=== PATIENT | male | born 1970 | race Caucasian/White ===

== ENCOUNTER 2018-09-22 07:54 | Inpatient (IN) | payer OTHER ==
[2018-09-22 09:15] VITALS: BMI 25.8
--- NOTE | 2018-09-22 09:51 | HP ---
CIWA Score Nausea/Vomitin Muscle Tremors: 3 Anxiety: 4-Mod. Anxious/Guarded Agitation: 0-Normal Activity Paroxysmal Sweats: No Perspiration Orientation: 0-Oriented Tacttile Disturbances: 0-None Auditory Disturbances: 1-Very Mild Visual Disturbances: 0-None Headache: 2-Mild CIWA-Ar Total Score: 13 - Admission Criteria OASAS Guidelines: Admission for Medically Managed Detox: Requires at least one of the followin. CIWA greater than 12 2. Seizures within the past 24 hours 3. Delirium tremens within the past 24 hours 4. Hallucinations within the past 24 hours 5. Acute intervention needed for co occurring medical disorder 6. Acute intervention needed for co occurring psychiatric disorder 7. Severe withdrawal that cannot be handled at a lower level of care (continued vomiting, continued diarrhea, abnormal vital signs) requiring intravenous medication and/or fluids 8. Patient presents the following: CIWA greater than 12 Admission Criteria Met: Admission criteria met Admission ROS [facility] - HPI Chief Complaint: I need to start over, to stop drinking, to get back my life Allergies/Adverse Reactions: Allergies Allergy/AdvReac Type Severity Reaction Status Date / Time No Known Allergies Allergy Verified 09/22/18 09:22 History of Present Illness: 48 yo gentleman here for detox from alcohol - denies seizures but does have black outs. Patient was in a residential treatment program for 10 months in 2017 but resumed drinking when he came out. He states he is in an outpatient rehab where he goes to meetings twice a week but it 'wasn't working' for him to stop drinking. He now needs to drink first thing in the morning to prevent shakiness. Although urine tox + cocaine he states he rarely does cocaine ("once in a blue") and he does not know why his urine is + THC as he does not smoke marijuana. Exam Limitations: Clinical Condition - Ebola screening Have you traveled outside of the country in the last 21 days: No (N) Have you had contact with anyone from an Ebola affected area: No Have you been sick,other than usual withdrawal symptoms: No Do you have a fever: No - Review of Systems Constitutional: Loss of Appetite, Changes in sleep, Weakness EENT: reports: Blurred Vision Respiratory: reports: No Symptoms reported Cardiac: reports: No Symptoms Reported GI: reports: Diarrhea, Nausea, Poor Appetite, Indigestion, Abdominal cramping : reports: Frequency Musculoskeletal: reports: No Symptoms Reported Integumentary: reports: Dryness Neuro: reports: Headache, Tremors Endocrine: reports: No Symptoms Reported Hematology: reports: No Symptoms Reported Psychiatric: reports: Judgement Intact, Mood/Affect Appropiate, Anxious Other Systems: Reviewed and Negative Patient History - Patient Medical History Hx Anemia: No Hx Asthma: No Hx Chronic Obstructive Pulmonary Disease (COPD): No Hx Cancer: No Hx Cardiac Disorders: No Hx Congestive Heart Failure: No Hx Hypertension: No Hx Hypercholesterolemia: No Hx Pacemaker: No HX Cerebrovascular Accident: No Hx Seizures: No Hx Dementia: No Hx Diabetes: No Hx Gastrointestinal Disorders: No Hx Liver Disease: No Hx Genitourinary Disorders: No Hx Sexually Transmitted Disorders: No Hx Renal Disease (ESRD): No Hx Thyroid Disease: No Hx Human Immunodeficiency Virus (HIV): No (negative LAST 04/09) Hx Hepatitis C: No (negative) Hx Depression: No Hx Suicide Attempt: No Hx Bipolar Disorder: No Hx Schizophrenia: No - Patient Surgical History Past Surgical History: No Hx Neurologic Surgery: No Hx Cataract Extraction: No Hx Cardiac Surgery: No Hx Lung Surgery: No Hx Breast Surgery: No Hx Breast Biopsy: No Hx Abdominal Surgery: No Hx Appendectomy: No Hx Cholecystectomy: No Hx Genitourinary Surgery: No Hx Orthopedic Surgery: No Anesthesia Reaction: No - PPD History Previous Implant?: Yes Documented Results: Negative w/proof Implanted On Prior R Admission?: Yes Date: 08/25/16 PPD to be Administered?: Yes - Reproductive History Patient is a Female of Child Bearing Age (11 -55 yrs old): No (male) - Smoking Cessation Smoking history: Current every day smoker Have you smoked in the past 12 months: Yes Aproximately how many cigarettes per day: 10 Cigars Per Day: 0 Hx Chewing Tobacco Use: No Initiated information on smoking cessation: Yes 'Breaking Loose' booklet given: 09/22/18 (give on floor) - Substance & Tx. History Hx Alcohol Use: Yes Hx Substance Use: Yes Substance Use Type: Alcohol, Cocaine, Marijuana Hx Substance Use Treatment: Yes (detox, rehab) - Substances Abused Alcohol Route: Oral Frequency: Daily Amount used: 1.5 liter of vodka Age of first use: 25 Date of Last Use: 09/21/18 Family Disease History - Family Disease History Family Disease History: Diabetes: Father (, ), Brother (four living ), Heart Disease: Mother (, etoh), Other: Father, Mother, Brother, Sister ( two living ), Son (two - healthy - ages 22, 20), Daughter (one - healthy age 24) Admission Physical Exam [facility] - Vital Signs Vital Signs: Vital Signs - 24 hr 09/22/18 09:12 Temperature 97.4 F L Pulse Rate 68 Respiratory 20 Rate Blood Pressure 116/74 - Physical General Appearance: Yes: Nourished, Appropriately Dressed, Moderate Distress, Tremorous, Anxious HEENTM: Yes: EOMI, Hearing grossly Normal, Normocephalic, Normal Voice, Pharynx Normal Respiratory: Yes: Normal Breath Sounds, No Respiratory Distress Neck: Yes: No masses,lesions,Nodules, Supple Breast: Yes: Breast Exam Deferred Cardiology: Yes: Regular Rhythm, Regular Rate Abdominal: Yes: Flat Genitourinary: Yes: Frequency Back: Yes: Normal Inspection Musculoskeletal: Yes: full range of Motion, Gait Steady Extremities: Yes: Normal Inspection 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: Fully Oriented, Alert, Normal Mood/Affect, Normal Response Integumentary: Yes: Normal Color, Warm Lymphatic: Yes: Within Normal Limits - Diagnostic (1) Alcohol dependence with uncomplicated withdrawal Current Visit: Yes Status: Chronic (2) Dehydration Current Visit: Yes Status: Acute (3) Syncope Current Visit: Yes Status: Acute Qualifiers: Syncope type: unspecified Qualified Code(s): R55 - Syncope and collapse (4) Weight loss Current Visit: Yes Status: Acute (5) Nicotine dependence Current Visit: Yes Status: Chronic Qualifiers: Nicotine product type: cigarettes Substance use status: uncomplicated Qualified Code(s): F17.210 - Nicotine dependence, cigarettes, uncomplicated Cleared for Admission [facility] - Detox or Rehab [facility] Level of Care: Medically Managed Detox Regimen/Protocol: Librium [facility] Breath Alcohol Content Breath Alcohol Content: 0.257 Urine Drug Screen - Results Drug Screen Negative: No Urine Drug Screen Results: THC-Marijuana, SNOW-Cocaine
[2018-09-22] MEDS ORDERED: guaiFENesin/D-METHORPHAN HB 10 ML UNIT-DOSE CUPS PO PRN (10:04)
[2018-09-22] MEDS ORDERED: MENTHOL/PHENOL 1 EACH UD MM PRN (10:04)
[2018-09-22] MEDS ORDERED: MAGNESIUM CITRATE 300 ML BOTTLE PO PRN (10:04)
[2018-09-22] MEDS ORDERED: P-EPHED 60MG/TRIPROLIDI 2.5MG TABLET PO PRN (10:04)
[2018-09-22] MEDS ORDERED: chlordiazePOXIDE HCL 25 MG CAPSULE PO PRN (10:04)
[2018-09-22] MEDS ORDERED: LOPERAMIDE HCL 2 MG CAPSULE PO PRN (10:04)
[2018-09-22] MEDS ORDERED: MAG HYDROX/AL HYDROX/SIMETH 30 ML UNIT-DOSE CUP PO PRN (10:04)
[2018-09-22] MEDS ORDERED: MAGNESIUM HYDROX 2400MG/30ML ORAL SUSPENSION 30 ML CUP PO PRN (10:04)
[2018-09-22] MEDS ORDERED: ACETAMINOPHEN 325 MG TABLET (FP) PO PRN (10:04)
[2018-09-22] MEDS ORDERED: IBUPROFEN 400 MG TABLET (FP) PO PRN (10:04)
[2018-09-22] MEDS: NICOTINE 21 MG/24 HOURS TOPICAL PATCH TD SCH (12:35)
[2018-09-22] MEDS: chlordiazePOXIDE HCL 25 MG CAPSULE PO SCH ×2 (17:21→23:29)
[2018-09-22] MEDS: THIAMINE HCL 100 MG TABLET (FP) PO SCH (23:29)
[2018-09-23] MEDS: chlordiazePOXIDE HCL 25 MG CAPSULE PO SCH ×4 (05:48→22:08)
[2018-09-23] MEDS: NICOTINE 21 MG/24 HOURS TOPICAL PATCH TD SCH (10:37)
[2018-09-23] MEDS: PRENATAL VITAMINS W/ FOLIC ACID TABLET (FP) PO SCH (10:37)
[2018-09-23 10:44] LABS: HEMATOCRIT 37.8 % (35.4-49); HEMOGLOBIN 13.4 GM/dL (11.7-16.9); MCH 30.5 pg (25.7-33.7); MCHC 35.3 g/dl (32.0-35.9); MEAN CELL VOLUME 86.4 fl (80-96); PLATELET COUNT 186 K/MM3 (134-434); RBC 4.38 M/mm3 (4.00-5.60); RDW 14.4 % (11.9-15.9); WHITE BLOOD COUNT 4.7 K/mm3 (4.0-10.0)
[2018-09-23 10:55] LABS: ALBUMIN 4.1 g/dl (3.4-5.0); ALK PHOS 71 U/L (45-117); ANION GAP 7 MMOL/L (8-16); BILIRUBIN,TOTAL 0.3 mg/dL (0.2-1); BLOOD UREA NITROGEN 17 mg/dL (7-18); CALCIUM 8.3 mg/dL (8.5-10.1); CHLORIDE 105 mmol/L (98-107); CO2 29 mmol/L (21-32); CREATININE 0.9 mg/dL (0.55-1.3); GLUCOSE,RANDOM 116 mg/dL (74-106); POTASSIUM 3.5 mmol/L (3.5-5.1); SGOT/AST 36 U/L (15-37); SGPT/ALT 45 U/L (13-61); SODIUM 141 mmol/L (136-145); TOT PROT 7.1 g/dl (6.4-8.2)
[2018-09-23] MEDS ORDERED: PNEUMOC 13-VAL CONJ-DIP CRM/PF 0.5 ML DISP.SYRIN IM ONE (12:00)
[2018-09-23] MEDS ORDERED: PNEUMOCOCCAL 23 VACCINE 0.5 ML VIAL IM ONE (12:00)
[2018-09-23] MEDS ORDERED: FLU VACCINE QUAD 60 MCG/0.5 ML (MDV 18-19) IM ONE (12:00)
--- NOTE | 2018-09-23 16:35 | PN ---
S CIWA - CIWA Score Nausea/Vomitin Muscle Tremors: 4-Moderate,w/Arms Extend Anxiety: 4-Mod. Anxious/Guarded Agitation: 2 Paroxysmal Sweats: 3 Orientation: 0-Oriented Tacttile Disturbances: 1-Very Mild Itch/Numbness Auditory Disturbances: 0-None Visual Disturbances: 0-None Headache: 1-Very Mild CIWA-Ar Total Score: 17 BHS Progress Note (SOAP) Subjective: Sweating, anxious, interrupted sleep Objective: 09/23/18 16:34 Last Vital Signs Temp Pulse Resp BP Pulse Ox 96.4 F L 61 18 121/77 09/23/18 13:16 09/23/18 13:16 09/23/18 13:16 09/23/18 13:16 Laboratory Tests 09/23/18 09/23/18 09/23/18 07:30 07:30 07:30 WBC 4.7 RBC 4.38 Hgb 13.4 Hct 37.8 MCV 86.4 MCH 30.5 MCHC 35.3 RDW 14.4 Plt Count 186 MPV 10.0 D Sodium 141 Potassium 3.5 Chloride 105 Carbon Dioxide 29 Anion Gap 7 L BUN 17 Creatinine 0.9 Creat Clearance w eGFR > 60 Random Glucose 116 H Calcium 8.3 L Total Bilirubin 0.3 AST 36 ALT 45 Alkaline Phosphatase 71 Total Protein 7.1 Albumin 4.1 RPR Titer HIV 1&2 Antibody Screen Negative HIV P24 Antigen Negative 09/23/18 07:50 WBC RBC Hgb Hct MCV MCH MCHC RDW Plt Count MPV Sodium Potassium Chloride Carbon Dioxide Anion Gap BUN Creatinine Creat Clearance w eGFR Random Glucose Calcium Total Bilirubin AST ALT Alkaline Phosphatase Total Protein Albumin RPR Titer Nonreactive HIV 1&2 Antibody Screen HIV P24 Antigen Labs reviewed Assessment: 09/23/18 16:34 Withdrawal symptoms Plan: Continue detox Encouraged PO water intake
[2018-09-23] MEDS: THIAMINE HCL 100 MG TABLET (FP) PO SCH (22:07)
[2018-09-23] MEDS: MELATONIN 5 MG TABLETS PO PRN (22:08)
[2018-09-24] MEDS: chlordiazePOXIDE HCL 25 MG CAPSULE PO SCH ×2 (05:50→10:15)
[2018-09-24] MEDS: NICOTINE 21 MG/24 HOURS TOPICAL PATCH TD SCH (10:15)
[2018-09-24] MEDS: PRENATAL VITAMINS W/ FOLIC ACID TABLET (FP) PO SCH (10:15)
--- NOTE | 2018-09-24 13:40 | PN ---
[facility] CIWA - CIWA Score Nausea/Vomitin-Mild Nausea/No Vomiting Muscle Tremors: 3 Anxiety: 2 Agitation: 2 Paroxysmal Sweats: 1-Minimal Palms Moist Orientation: 1-Uncertain about Date Tacttile Disturbances: 0-None Auditory Disturbances: 0-None Visual Disturbances: 0-None Headache: 2-Mild CIWA-Ar Total Score: 12 S Progress Note (SOAP) Subjective: tremor sweat restlessness anxiety trouble sleep at night mild gi distress Objective: 09/24/18 13:38 Vital Signs Temperature 97.0 F L 09/24/18 13:36 Pulse Rate 66 09/24/18 13:36 Respiratory Rate 18 09/24/18 13:36 Blood Pressure 126/85 09/24/18 13:36 O2 Sat by Pulse Oximetry (%) Laboratory Last Values WBC 4.7 K/mm3 (4.0-10.0) 09/23/18 07:30 RBC 4.38 M/mm3 (4.00-5.60) 09/23/18 07:30 Hgb 13.4 GM/dL (11.7-16.9) 09/23/18 07:30 Hct 37.8 % (35.4-49) 09/23/18 07:30 MCV 86.4 fl (80-96) 09/23/18 07:30 MCH 30.5 pg (25.7-33.7) 09/23/18 07:30 MCHC 35.3 g/dl (32.0-35.9) 09/23/18 07:30 RDW 14.4 % (11.9-15.9) 09/23/18 07:30 Plt Count 186 K/MM3 (134-434) 09/23/18 07:30 MPV 10.0 fl (7.5-11.1) D 09/23/18 07:30 Sodium 141 mmol/L (136-145) 09/23/18 07:30 Potassium 3.5 mmol/L (3.5-5.1) 09/23/18 07:30 Chloride 105 mmol/L (98-107) 09/23/18 07:30 Carbon Dioxide 29 mmol/L (21-32) 09/23/18 07:30 Anion Gap 7 MMOL/L (8-16) L 09/23/18 07:30 BUN 17 mg/dL (7-18) 09/23/18 07:30 Creatinine 0.9 mg/dL (0.55-1.3) 09/23/18 07:30 Creat Clearance w eGFR > 60 (>60) 09/23/18 07:30 Random Glucose 116 mg/dL (74-106) H 09/23/18 07:30 Calcium 8.3 mg/dL (8.5-10.1) L 09/23/18 07:30 Total Bilirubin 0.3 mg/dL (0.2-1) 09/23/18 07:30 AST 36 U/L (15-37) 09/23/18 07:30 ALT 45 U/L (13-61) 09/23/18 07:30 Alkaline Phosphatase 71 U/L (45-117) 09/23/18 07:30 Total Protein 7.1 g/dl (6.4-8.2) 09/23/18 07:30 Albumin 4.1 g/dl (3.4-5.0) 09/23/18 07:30 RPR Titer Nonreactive (NONREACTIVE) 09/23/18 07:50 HIV 1&2 Antibody Screen Negative 09/23/18 07:30 HIV P24 Antigen Negative 09/23/18 07:30 lab noted Assessment: 09/24/18 13:40 withdrawal sx Plan: continue detox
[2018-09-24] MEDS: chlordiazePOXIDE 5 MG CAPSULE PO SCH ×2 (16:48→22:41)
[2018-09-24] MEDS: MELATONIN 5 MG TABLETS PO PRN (22:41)
[2018-09-24] MEDS: THIAMINE HCL 100 MG TABLET (FP) PO SCH (22:41)
[2018-09-25] MEDS: chlordiazePOXIDE 5 MG CAPSULE PO SCH ×2 (05:33→10:13)
[2018-09-25] MEDS: PRENATAL VITAMINS W/ FOLIC ACID TABLET (FP) PO SCH (10:13)
[2018-09-25] MEDS: NICOTINE 21 MG/24 HOURS TOPICAL PATCH TD SCH (10:14)
[2018-09-25] MEDS: chlordiazePOXIDE HCL 10 MG CAPSULE PO SCH ×2 (17:13→22:27)
--- NOTE | 2018-09-25 17:22 | PN ---
BHS Progress Note (SOAP) Subjective: Patient Denies Any Withdrawal Symptoms at This Time. Objective: PATIENT A & O X 3. IN NO ACUTE DISTRESS. 09/25/18 17:21 Vital Signs Temperature 97.8 F 09/25/18 13:34 Pulse Rate 78 09/25/18 13:34 Respiratory Rate 18 09/25/18 13:34 Blood Pressure 127/87 09/25/18 13:34 O2 Sat by Pulse Oximetry (%) Laboratory Tests 09/23/18 09/23/18 09/23/18 07:30 07:30 07:30 WBC 4.7 RBC 4.38 Hgb 13.4 Hct 37.8 MCV 86.4 MCH 30.5 MCHC 35.3 RDW 14.4 Plt Count 186 MPV 10.0 D Sodium 141 Potassium 3.5 Chloride 105 Carbon Dioxide 29 Anion Gap 7 L BUN 17 Creatinine 0.9 Creat Clearance w eGFR > 60 Random Glucose 116 H Calcium 8.3 L Total Bilirubin 0.3 AST 36 ALT 45 Alkaline Phosphatase 71 Total Protein 7.1 Albumin 4.1 RPR Titer HIV 1&2 Antibody Screen Negative HIV P24 Antigen Negative 09/23/18 07:50 WBC RBC Hgb Hct MCV MCH MCHC RDW Plt Count MPV Sodium Potassium Chloride Carbon Dioxide Anion Gap BUN Creatinine Creat Clearance w eGFR Random Glucose Calcium Total Bilirubin AST ALT Alkaline Phosphatase Total Protein Albumin RPR Titer Nonreactive HIV 1&2 Antibody Screen HIV P24 Antigen LABS NOTED. Assessment: 09/25/18 17:21 WITHDRAWAL SYMPTOMS. Plan: CONTINUE DETOX. PATIENT SCHEDULED FOR D/C TOMORROW.
[2018-09-25] MEDS: MELATONIN 5 MG TABLETS PO PRN (22:27)
[2018-09-25] MEDS: THIAMINE HCL 100 MG TABLET (FP) PO SCH (22:27)
[2018-09-26] MEDS: chlordiazePOXIDE HCL 10 MG CAPSULE PO SCH (05:50)
[2018-09-26 06:19] VITALS: BP 112/68; PULSE 67; TEMP 97.3
--- NOTE | 2018-09-26 09:33 | DS ---
[facility] Detox Discharge Summary Admission Date: 09/22/18 Discharge Date: 09/26/18 - History Present History: Alcohol Dependence Additional Comments: 48 years old male admitted on 09/22/18 for alcohol withdrawal stabilization completed alcohol detox regimen tolerated well alert no acute [facility] - Physical Exam Results Vital Signs: Vital Signs Temperature 97.3 F L 09/26/18 06:18 Pulse Rate 67 09/26/18 06:18 Respiratory Rate 18 09/26/18 06:18 Blood Pressure 112/68 09/26/18 06:18 O2 Sat by Pulse Oximetry (%) Pertinent Admission Physical Exam Findings: alcohol withdrawal sx Laboratory Last Values WBC 4.7 K/mm3 (4.0-10.0) 09/23/18 07:30 RBC 4.38 M/mm3 (4.00-5.60) 09/23/18 07:30 Hgb 13.4 GM/dL (11.7-16.9) 09/23/18 07:30 Hct 37.8 % (35.4-49) 09/23/18 07:30 MCV 86.4 fl (80-96) 09/23/18 07:30 MCH 30.5 pg (25.7-33.7) 09/23/18 07:30 MCHC 35.3 g/dl (32.0-35.9) 09/23/18 07:30 RDW 14.4 % (11.9-15.9) 09/23/18 07:30 Plt Count 186 K/MM3 (134-434) 09/23/18 07:30 MPV 10.0 fl (7.5-11.1) D 09/23/18 07:30 Sodium 141 mmol/L (136-145) 09/23/18 07:30 Potassium 3.5 mmol/L (3.5-5.1) 09/23/18 07:30 Chloride 105 mmol/L (98-107) 09/23/18 07:30 Carbon Dioxide 29 mmol/L (21-32) 09/23/18 07:30 Anion Gap 7 MMOL/L (8-16) L 09/23/18 07:30 BUN 17 mg/dL (7-18) 09/23/18 07:30 Creatinine 0.9 mg/dL (0.55-1.3) 09/23/18 07:30 Creat Clearance w eGFR > 60 (>60) 09/23/18 07:30 Random Glucose 116 mg/dL (74-106) H 09/23/18 07:30 Calcium 8.3 mg/dL (8.5-10.1) L 09/23/18 07:30 Total Bilirubin 0.3 mg/dL (0.2-1) 09/23/18 07:30 AST 36 U/L (15-37) 09/23/18 07:30 ALT 45 U/L (13-61) 09/23/18 07:30 Alkaline Phosphatase 71 U/L (45-117) 09/23/18 07:30 Total Protein 7.1 g/dl (6.4-8.2) 09/23/18 07:30 Albumin 4.1 g/dl (3.4-5.0) 09/23/18 07:30 RPR Titer Nonreactive (NONREACTIVE) 09/23/18 07:50 HIV 1&2 Antibody Screen Negative 09/23/18 07:30 HIV P24 Antigen Negative 09/23/18 07:30 lab noted - Treatment Hospital Course: Detox Protocol Followed, Detoxed Safely, Responded well, Discharged Condition Good, Rehab Referral Accepted Patient has Accepted a Rehab Referral to: [facility] - Medication Discharge Medications: Ambulatory Orders Albuterol Sulfate Inhaler - [Ventolin HFA Inhaler -] 2 inh PO Q4H PRN #1 inhaler 09/26/18 - Diagnosis (1) Alcohol dependence with uncomplicated withdrawal Status: Acute (2) Asthma Status: Chronic Qualifiers: Asthma severity: mild Asthma persistence: intermittent Asthma complication type: with status asthmaticus Qualified Code(s): J45.22 - Mild intermittent asthma with status asthmaticus (3) Nicotine dependence Status: Acute Qualifiers: Nicotine product type: cigarettes Substance use status: in withdrawal Qualified Code(s): F17.213 - Nicotine dependence, cigarettes, with withdrawal - AMA Did Patient Leave Against Medical Advice: No
--- NOTE | 2018-11-20 11:43 | EKG ---
Test Reason : Blood Pressure : / mmHG Vent. Rate : 075 BPM Atrial Rate : 075 BPM P-R Int : 172 ms QRS Dur : 084 ms QT Int : 382 ms P-R-T Axes : 039 021 054 degrees QTc Int : 426 ms NORMAL SINUS RHYTHM NORMAL ECG NO PREVIOUS ECGS AVAILABLE Confirmed by Ish Gill MD ([id number]) on 11/20/2018 11:42:30 AM Referred By: Confirmed By:Ish Gill MD
== END 2018-09-26 08:42 | disposition home or self-care (01) | DRG 775 ==
LOC: YASAS 07:54 → Y3N 10:21
PROC: HZ2ZZZZ Detoxification Services for Substance Abuse Treatment (ICD-10-PCS; principal; 2018-09-22)
DX: F10.230 Alcohol dependence with withdrawal, uncomplicated (principal); F17.213 Nicotine dependence, cigarettes, with withdrawal; J45.22 Mild intermittent asthma with status asthmaticus; E86.0 Dehydration
CPT/HCPCS: 36415; 80053; 85027; 86593; 87389; 90688; 90732; 93005; 93010; G0008; G0009

== ENCOUNTER 2018-11-19 14:29 | Inpatient (IN) | payer OTHER ==
--- NOTE | 2018-11-19 19:00 | HP ---
CIWA Score Nausea/Vomitin-Int. Nausea w/Dry Heave Muscle Tremors: 2 Anxiety: 2 Agitation: 3 Paroxysmal Sweats: 3 Orientation: 0-Oriented Tacttile Disturbances: 0-None Auditory Disturbances: 0-None Visual Disturbances: 0-None Headache: 0-None Present CIWA-Ar Total Score: 14 - Admission Criteria OASAS Guidelines: Admission for Medically Managed Detox: Requires at least one of the followin. CIWA greater than 12 2. Seizures within the past 24 hours 3. Delirium tremens within the past 24 hours 4. Hallucinations within the past 24 hours 5. Acute intervention needed for co occurring medical disorder 6. Acute intervention needed for co occurring psychiatric disorder 7. Severe withdrawal that cannot be handled at a lower level of care (continued vomiting, continued diarrhea, abnormal vital signs) requiring intravenous medication and/or fluids 8. Patient presents the following: CIWA greater than 12 Admission Criteria Met: Admission criteria met Admission ROS S - [facility] Chief Complaint: " I want to kick this addiction" Allergies/Adverse Reactions: Allergies Allergy/AdvReac Type Severity Reaction Status Date / Time No Known Allergies Allergy Verified 09/22/18 09:22 History of Present Illness: 48 yo male with hx of chronic alcohol dependence is here seeking detox, this is one of multiple admissions. PMHX: Asthma, Paranoid Schizophrenia. Denies suicidal / homicidal ideation. Denies hx of seizures. Reports hx of ETOH black outs with last episode approximately three months ago Exam Limitations: No Limitations - Ebola screening Have you traveled outside of the country in the last 21 days: No (N) Have you had contact with anyone from an Ebola affected area: No Do you have a fever: No - Review of Systems Constitutional: Chills, Changes in sleep, Weakness EENT: reports: No Symptoms Reported Respiratory: reports: No Symptoms reported Cardiac: reports: No Symptoms Reported GI: reports: Diarrhea, Nausea, Poor Appetite, Poor Fluid Intake, Vomiting : reports: No Symptoms Reported Musculoskeletal: reports: Back Pain (low back x 2 weeks) Integumentary: reports: No Symptoms Reported Neuro: reports: Weakness Endocrine: reports: Increased Thirst Hematology: reports: No Symptoms Reported Psychiatric: reports: Orientated x3, Anxious Other Systems: Reviewed and Negative Patient History - Patient Medical History Hx Anemia: No Hx Asthma: No Hx Chronic Obstructive Pulmonary Disease (COPD): No Hx Cancer: No Hx Cardiac Disorders: No Hx Congestive Heart Failure: No Hx Hypertension: No Hx Hypercholesterolemia: No Hx Pacemaker: No HX Cerebrovascular Accident: No Hx Seizures: No Hx Dementia: No Hx Diabetes: No Hx Gastrointestinal Disorders: No Hx Liver Disease: No Hx Genitourinary Disorders: No Hx Sexually Transmitted Disorders: No Hx Renal Disease (ESRD): No Hx Thyroid Disease: No Hx Human Immunodeficiency Virus (HIV): No (negative LAST 04/09) Hx Hepatitis C: No (negative) Hx Depression: No Hx Suicide Attempt: No Hx Bipolar Disorder: No Hx Schizophrenia: Yes - Patient Surgical History Past Surgical History: No Hx Neurologic Surgery: No Hx Cataract Extraction: No Hx Cardiac Surgery: No Hx Lung Surgery: No Hx Breast Surgery: No Hx Breast Biopsy: No Hx Abdominal Surgery: No Hx Appendectomy: No Hx Cholecystectomy: No Hx Genitourinary Surgery: No Hx Orthopedic Surgery: No Anesthesia Reaction: No - PPD History Date: 09/24/18 Results: UNKNOWN - Smoking Cessation Smoking history: Current every day smoker Have you smoked in the past 12 months: Yes Aproximately how many cigarettes per day: 10 Cigars Per Day: 0 Hx Chewing Tobacco Use: No Initiated information on smoking cessation: Yes 'Breaking Loose' booklet given: 11/19/18 - Substance & Tx. History Hx Alcohol Use: Yes Substance Use Type: Alcohol Hx Substance Use Treatment: Yes (Detox [facility] 09/22/18 -09/26/18) - Substances Abused alcohol Route: Oral Frequency: Daily Amount used: 2 pints Age of first use: 23 Date of Last Use: 11/17/18 Family Disease History - Family Disease History Family Disease History: Diabetes: Father (, ), Brother (four living ), Heart Disease: Mother (, etoh), Other: Father, Mother, Brother, Sister ( two living ), Son (two - healthy - ages 22, 20), Daughter (one - healthy age 24) Admission Physical Exam [facility] - Physical General Appearance: Yes: Mild Distress, Tremorous, Anxious HEENTM: Yes: EOMI, Hearing grossly Normal, Normal ENT Inspection, Normocephalic , Normal Voice, SELENA, Pharynx Normal, Tm's normal Respiratory: Yes: Within Normal Limits Neck: Yes: Within Normal Limits Breast: Yes: Breast Exam Deferred Cardiology: Yes: Regular Rhythm, Regular Rate Abdominal: Yes: Normal Bowel Sounds, Non Tender, Flat, Soft Genitourinary: Yes: Within Normal Limits Back: Yes: Normal Inspection Musculoskeletal: Yes: full range of Motion, Gait Steady, Pelvis Stable, Back pain Extremities: Yes: Normal Capillary Refill, Normal Inspection, Normal Range of Motion, Non-Tender 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: 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 NML intact, Fully Oriented, Alert, Motor Strength 5/5, Depressed Affect Integumentary: Yes: Normal Color, Warm, Diaphoresis Lymphatic: Yes: Within Normal Limits - Diagnostic (1) Nausea & vomiting Current Visit: Yes Status: Acute Qualifiers: Vomiting Intractability: unspecified (2) Alcohol dependence with uncomplicated withdrawal Current Visit: Yes Status: Acute (3) Asthma Current Visit: Yes Status: Chronic Qualifiers: Asthma severity: mild Asthma persistence: intermittent Asthma complication type: with status asthmaticus Qualified Code(s): J45.22 - Mild intermittent asthma with status asthmaticus Cleared for Admission S - Detox or Rehab [facility] Level of Care: Medically Managed Detox Regimen/Protocol: Librium S Breath Alcohol Content Breath Alcohol Content: 0.163 Inpatient Rehab Admission - Rehab Decision to Admit Inpatient rehab admission?: No
[2018-11-19] MEDS ORDERED: diphenhydrAMINE HCL 25 MG CAPSULE (FP) PO ONE (19:03)
[2018-11-19] MEDS ORDERED: ACETAMINOPHEN 325 MG TABLET (FP) PO PRN (19:04)
[2018-11-19] MEDS ORDERED: MAGNESIUM CITRATE 300 ML BOTTLE PO PRN (19:04)
[2018-11-19] MEDS ORDERED: MENTHOL/PHENOL 1 EACH UD MM PRN (19:04)
[2018-11-19] MEDS ORDERED: MAGNESIUM HYDROX 2400MG/30ML ORAL SUSPENSION 30 ML CUP PO PRN (19:04)
[2018-11-19] MEDS ORDERED: LOPERAMIDE HCL 2 MG CAPSULE PO PRN (19:04)
[2018-11-19] MEDS ORDERED: guaiFENesin/D-METHORPHAN HB 10 ML UNIT-DOSE CUPS PO PRN (19:04)
[2018-11-19] MEDS ORDERED: P-EPHED 60MG/TRIPROLIDI 2.5MG TABLET PO PRN (19:04)
[2018-11-19] MEDS ORDERED: IBUPROFEN 400 MG TABLET (FP) PO PRN (19:04)
[2018-11-19] MEDS ORDERED: chlordiazePOXIDE HCL 25 MG CAPSULE PO PRN (19:04)
[2018-11-19] MEDS ORDERED: hydrOXYzine PAMOATE 25 MG CAPSULE (FP) PO PRN (19:09)
[2018-11-19] MEDS ORDERED: NICOTINE POLACRILEX 2 MG GUM BUC PRN (19:52)
[2018-11-19] MEDS: CYCLOBENZAPRINE HCL 10 MG TABLET (FP) PO PRN ×2 (20:50→22:24)
[2018-11-19] MEDS ORDERED: MELATONIN 5 MG TABLETS PO PRN (22:00)
[2018-11-19] MEDS: THIAMINE HCL 100 MG TABLET (FP) PO SCH (22:24)
[2018-11-19] MEDS: chlordiazePOXIDE HCL 25 MG CAPSULE PO SCH (22:25)
[2018-11-20 01:51] LABS: URINE APPEARANCE CLEAR; URINE BILIRUBIN NEGATIVE (<2.0 mg/dL); URINE COLOR STRAW; URINE GLUCOSE (UA) NEGATIVE (NEGATIVE); URINE KETONE NEGATIVE (NEGATIVE); URINE LEUK ESTERASE NEGATIVE (NEGATIVE); URINE NITRITE NEGATIVE (NEGATIVE); URINE PROTEIN NEGATIVE (NEGATIVE); URINE UROBILINOGEN NEGATIVE mg/dL (0.2-1.0)
[2018-11-20] MEDS: chlordiazePOXIDE HCL 25 MG CAPSULE PO SCH ×4 (05:29→22:23)
--- NOTE | 2018-11-20 09:54 | PN ---
S CIWA - CIWA Score Nausea/Vomitin-No Nausea/No Vomiting Muscle Tremors: 3 Anxiety: 3 Agitation: 3 Paroxysmal Sweats: 3 Orientation: 0-Oriented Tacttile Disturbances: 0-None Auditory Disturbances: 0-None Visual Disturbances: 0-None Headache: 0-None Present CIWA-Ar Total Score: 12 BHS Progress Note (SOAP) Subjective: sweats shakes interrupted sleep tired Objective: 11/20/18 09:53 Vital Signs Temperature 97.9 F 11/20/18 07:25 Pulse Rate 65 11/20/18 07:25 Respiratory Rate 18 11/20/18 07:25 Blood Pressure 124/75 11/20/18 07:25 O2 Sat by Pulse Oximetry (%) Laboratory Tests 11/19/18 20:58 Urine Color Straw Urine Appearance Clear Urine pH 6.0 Ur Specific [place] 1.004 L Urine Protein Negative Urine Glucose (UA) Negative Urine Ketones Negative Urine Blood Negative Urine Nitrite Negative Urine Bilirubin Negative Urine Urobilinogen Negative Ur Leukocyte Esterase Negative rest of labs pending aaox3 ambulating no acute distress Assessment: 11/20/18 09:53 withdrawal sx Plan: continue detox increase fluids labs pending
[2018-11-20] MEDS: NICOTINE 14 MG/24 HOURS TOPICAL PATCH TD SCH (10:10)
[2018-11-20] MEDS: PRENATAL VITAMINS W/ FOLIC ACID TABLET (FP) PO SCH (10:10)
[2018-11-20] MEDS: CYCLOBENZAPRINE HCL 10 MG TABLET (FP) PO PRN ×2 (10:12→22:23)
--- NOTE | 2018-11-20 11:19 | PN ---
[facility] Progress Note Note: Patient was apprached twice and he was unwilling to talk to adjusto writer operator citing needing to rest
[2018-11-20 12:45] LABS: HEMOGLOBIN 12.9 GM/dL (11.7-16.9); MCH 28.9 pg (25.7-33.7); MCHC 33.2 g/dl (32.0-35.9); PLATELET COUNT 163 K/MM3 (134-434); RBC 4.48 M/mm3 (4.00-5.60); RDW 14.3 % (11.9-15.9); WHITE BLOOD COUNT 4.6 K/mm3 (4.0-10.0)
[2018-11-20 12:58] LABS: ALBUMIN 3.9 g/dl (3.4-5.0); ALK PHOS 84 U/L (45-117); ANION GAP 7 MMOL/L (8-16); BILIRUBIN,TOTAL 0.3 mg/dL (0.2-1); BLOOD UREA NITROGEN 18 mg/dL (7-18); CALCIUM 8.9 mg/dL (8.5-10.1); CHLORIDE 102 mmol/L (98-107); CO2 32 mmol/L (21-32); GLUCOSE,RANDOM 64 mg/dL (74-106); POTASSIUM 4.1 mmol/L (3.5-5.1); SGOT/AST 23 U/L (15-37); SGPT/ALT 38 U/L (13-61); SODIUM 141 mmol/L (136-145)
--- NOTE | 2018-11-20 13:16 | CONSULT ---
[facility] Psychiatric Consult - Data Date of interview: 11/20/18 Admission source: Self-referred Identifying data: Mr Covarrubias is a 48 years old single , father of 3 children, unemployed on public assistance, domiciled seeking detox treatment for alcohol Substance Abuse History: Reports history of alcohol use. He started drinking alcohol at age 23, consumes 2 pints of liquor daily. Last drank on 11/17/18. Refer to addiction counselor's summary for further information Medical History: Significant for bronchial asthma. Smokes 10 cigaretes daily Psychiatric History: Denies history of previous psychiatric treatment Physical/Sexual Abuse/Trauma History: Denies history of emotional, physical or sexual abuse as well as DV relationship. No service Additional Comment: Reports history of multiple arrests including 3 felony convictions. No parole/probation currently Mental Status Exam - Mental Status Exam Alert and Oriented to: Time, Place, Person Cognitive Function: Fair Patient Appearance: Well Groomed Mood: Depressed (mildly) Affect: Appropriate Patient Behavior: Cooperative Speech Pattern: Clear Voice Loudness: Moderately Soft/Quiet Thought Process: Intact, Goal Oriented Thought Disorder: Not Present Hallucinations: Denies Suicidal Ideation: Denies Homicidal Ideation: Denies Insight/Judgement: Poor Sleep: Poorly Appetite: Good Muscle strength/Tone: Normal Gait/Station: Normal Psychiatric Findings - Problem List (Bunch 1, 2,3) (1) Alcohol-induced mood disorder Current Visit: Yes Status: Acute (2) Alcohol-induced sleep disorder Current Visit: Yes Status: Acute (3) Alcohol dependence with uncomplicated withdrawal Current Visit: Yes Status: Acute (4) Nicotine dependence Current Visit: No Status: Chronic Qualifiers: Nicotine product type: cigarettes Substance use status: in withdrawal Qualified Code(s): F17.213 - Nicotine dependence, cigarettes, with withdrawal (5) Asthma Current Visit: Yes Status: Chronic Qualifiers: Asthma severity: mild Asthma persistence: intermittent Asthma complication type: with status asthmaticus Qualified Code(s): J45.22 - Mild intermittent asthma with status asthmaticus - Initial Treatment Plan Initial Treatment Plan: 1) Start Melatonin 10 mg po HS prn for insomnia. 2) Continue inpatient detoxification
[2018-11-20] MEDS: MAG HYDROX/AL HYDROX/SIMETH 30 ML UNIT-DOSE CUP PO PRN (13:29)
[2018-11-20] MEDS: THIAMINE HCL 100 MG TABLET (FP) PO SCH (22:23)
[2018-11-20] MEDS: MELATONIN 5 MG TABLETS PO PRN (22:24)
[2018-11-21] MEDS: chlordiazePOXIDE HCL 25 MG CAPSULE PO SCH ×3 (05:36→17:22)
[2018-11-21] MEDS: NICOTINE 14 MG/24 HOURS TOPICAL PATCH TD SCH (10:42)
[2018-11-21] MEDS: PRENATAL VITAMINS W/ FOLIC ACID TABLET (FP) PO SCH (10:42)
--- NOTE | 2018-11-21 10:51 | PN ---
[facility] CIWA - CIWA Score Nausea/Vomitin-No Nausea/No Vomiting Muscle Tremors: 3 Anxiety: 3 Agitation: 2 Paroxysmal Sweats: 3 Orientation: 0-Oriented Tacttile Disturbances: 0-None Auditory Disturbances: 0-None Visual Disturbances: 0-None Headache: 0-None Present CIWA-Ar Total Score: 11 [facility] Progress Note (SOAP) Subjective: body aches sweats interrupted sleep agitation Objective: 11/21/18 10:49 Vital Signs Temperature 98.2 F 11/21/18 09:29 Pulse Rate 91 11/21/18 09:29 Respiratory Rate 18 11/21/18 09:29 Blood Pressure 116/91 11/21/18 09:29 O2 Sat by Pulse Oximetry (%) Laboratory Tests 11/19/18 11/20/18 11/20/18 20:58 07:00 07:00 WBC 4.6 RBC 4.48 Hgb 12.9 Hct 39.0 MCV 87.0 MCH 28.9 MCHC 33.2 RDW 14.3 Plt Count 163 MPV 10.0 Sodium 141 Potassium 4.1 Chloride 102 Carbon Dioxide 32 Anion Gap 7 L BUN 18 Creatinine 1.0 Creat Clearance w eGFR > 60 Random Glucose 64 L Calcium 8.9 Total Bilirubin 0.3 AST 23 ALT 38 Alkaline Phosphatase 84 Total Protein 7.0 Albumin 3.9 Urine Color Straw Urine Appearance Clear Urine pH 6.0 Ur Specific [place] 1.004 L Urine Protein Negative Urine Glucose (UA) Negative Urine Ketones Negative Urine Blood Negative Urine Nitrite Negative Urine Bilirubin Negative Urine Urobilinogen Negative Ur Leukocyte Esterase Negative RPR Titer 11/20/18 07:00 WBC RBC Hgb Hct MCV MCH MCHC RDW Plt Count MPV Sodium Potassium Chloride Carbon Dioxide Anion Gap BUN Creatinine Creat Clearance w eGFR Random Glucose Calcium Total Bilirubin AST ALT Alkaline Phosphatase Total Protein Albumin Urine Color Urine Appearance Urine pH Ur Specific [place] Urine Protein Urine Glucose (UA) Urine Ketones Urine Blood Urine Nitrite Urine Bilirubin Urine Urobilinogen Ur Leukocyte Esterase RPR Titer Nonreactive aaox3 ambulating no acute distress Assessment: 11/21/18 10:50 mild withdrawal sx Plan: continue detox increase fluids
[2018-11-21] MEDS: CYCLOBENZAPRINE HCL 10 MG TABLET (FP) PO PRN (22:03)
[2018-11-21] MEDS: chlordiazePOXIDE 5 MG CAPSULE PO SCH (22:03)
[2018-11-21] MEDS: THIAMINE HCL 100 MG TABLET (FP) PO SCH (22:03)
[2018-11-21] MEDS: MELATONIN 5 MG TABLETS PO PRN (22:04)
[2018-11-22] MEDS: chlordiazePOXIDE 5 MG CAPSULE PO SCH ×3 (05:52→17:21)
[2018-11-22] MEDS: PRENATAL VITAMINS W/ FOLIC ACID TABLET (FP) PO SCH (10:11)
[2018-11-22] MEDS: NICOTINE 14 MG/24 HOURS TOPICAL PATCH TD SCH (10:12)
--- NOTE | 2018-11-22 11:09 | PN ---
[facility] Progress Note (SOAP) Subjective: feeling much better anxiety i need to leave early in the morning. Objective: 11/22/18 11:08 Vital Signs Temperature 98.1 F 11/22/18 09:41 Pulse Rate 79 11/22/18 09:41 Respiratory Rate 18 11/22/18 09:41 Blood Pressure 119/67 11/22/18 09:41 O2 Sat by Pulse Oximetry (%) aaox3 ambulating no acute distress Assessment: 11/22/18 11:08 mild withdrawal Plan: continue detox d/c in am
[2018-11-22] MEDS: MAG HYDROX/AL HYDROX/SIMETH 30 ML UNIT-DOSE CUP PO PRN (20:31)
[2018-11-22] MEDS: chlordiazePOXIDE HCL 10 MG CAPSULE PO SCH (22:14)
[2018-11-22] MEDS: THIAMINE HCL 100 MG TABLET (FP) PO SCH (22:14)
[2018-11-22] MEDS: CYCLOBENZAPRINE HCL 10 MG TABLET (FP) PO PRN (22:14)
[2018-11-22] MEDS: MELATONIN 5 MG TABLETS PO PRN (22:14)
[2018-11-23] MEDS: chlordiazePOXIDE HCL 10 MG CAPSULE PO SCH (05:27)
[2018-11-23 06:46] VITALS: BP 122/84; PULSE 88; TEMP 97.9
== END 2018-11-23 06:42 | disposition home or self-care (01) | DRG 775 ==
LOC: YASAS 14:29 → Y6N 19:27
PROVIDERS: ADMIT Surgery; ATTEND Surgery
PROC: HZ2ZZZZ Detoxification Services for Substance Abuse Treatment (ICD-10-PCS; principal; 2018-11-19)
DX: F10.230 Alcohol dependence with withdrawal, uncomplicated (principal); F17.213 Nicotine dependence, cigarettes, with withdrawal; F10.24 Alcohol dependence with alcohol-induced mood disorder; F10.282 Alcohol dependence with alcohol-induced sleep disorder; J45.22 Mild intermittent asthma with status asthmaticus; R11.2 Nausea with vomiting, unspecified
CPT/HCPCS: 36415; 80053; 81003; 85027; 86593

== ENCOUNTER 2019-05-16 09:06 | Inpatient (IN) | payer OTHER ==
[2019-05-16 10:03] VITALS: BMI 26.4
--- NOTE | 2019-05-16 11:42 | HP ---
CIWA Score Nausea/Vomitin Muscle Tremors: 2 Anxiety: 2 Agitation: 3 Paroxysmal Sweats: 1-Minimal Palms Moist Orientation: 0-Oriented Tacttile Disturbances: 1-Very Mild Itch/Numbness Auditory Disturbances: 0-None Visual Disturbances: 0-None Headache: 2-Mild CIWA-Ar Total Score: 13 - Admission Criteria [facility]ASAS Guidelines: Admission for Medically Managed Detox: Requires at least one of the followin. CIWA greater than 12 2. Seizures within the past 24 hours 3. Delirium tremens within the past 24 hours 4. Hallucinations within the past 24 hours 5. Acute intervention needed for co occurring medical disorder 6. Acute intervention needed for co occurring psychiatric disorder 7. Severe withdrawal that cannot be handled at a lower level of care (continued vomiting, continued diarrhea, abnormal vital signs) requiring intravenous medication and/or fluids 8. Admission ROS S - [facility] Chief Complaint: i need help to stop drinking alcohol,I am alcoholic Allergies/Adverse Reactions: Allergies Allergy/AdvReac Type Severity Reaction Status Date / Time No Known Allergies Allergy Verified 05/16/19 09:58 History of Present Illness: this 48 years old male with history of alcohol dependence seeking help to stop drinking,multiple admissions in detox since the age of [age] years old,last treatment 11/19/18 to 11/23/18 denied seizure,had syncope nicotine dependence 10 cigarette/day,would like to have nicotine patch longest period sobriety 2016 to 2018 weight loss plan for out patient program after detox history of schizophrenia,no med, childhood asthma Exam Limitations: No Limitations - Ebola screening Have you traveled outside of the country in the last 21 days: No (N) Have you had contact with anyone from an Ebola affected area: No Do you have a fever: No - Review of Systems Constitutional: Loss of Appetite, Malaise, Night Sweats, Unintentional Wgt. Loss EENT: reports: Tearing, Nose Congestion Respiratory: reports: No Symptoms reported Cardiac: reports: No Symptoms Reported GI: reports: Nausea, Poor Appetite, Abdominal cramping : reports: No Symptoms Reported Musculoskeletal: reports: Back Pain, Muscle Pain Integumentary: reports: Dryness Neuro: reports: Tremors Endocrine: reports: No Symptoms Reported Hematology: reports: No Symptoms Reported Psychiatric: reports: No Sypmtoms Reported, Judgement Intact, Mood/Affect Appropiate, Orientated x3 Other Systems: Reviewed and Negative Patient History - Patient Medical History Hx Anemia: No Hx Asthma: Yes (childhood asthma,no med now) Hx Chronic Obstructive Pulmonary Disease (COPD): No Hx Cancer: No Hx Cardiac Disorders: No Hx Congestive Heart Failure: No Hx Hypertension: No Hx Hypercholesterolemia: No Hx Pacemaker: No HX Cerebrovascular Accident: No Hx Seizures: No Hx Dementia: No Hx Diabetes: No Hx Gastrointestinal Disorders: No Hx Liver Disease: No Hx Genitourinary Disorders: No Hx Sexually Transmitted Disorders: No Hx Renal Disease (ESRD): No Hx Thyroid Disease: No Hx Human Immunodeficiency Virus (HIV): No (negative LAST 2017) Hx Hepatitis C: No (negative) Hx Depression: No Hx Suicide Attempt: No Hx Bipolar Disorder: No Hx Schizophrenia: Yes (no med,do not want to see psychiatrist) Other Medical History: no suicida,no homicidal - Patient Surgical History Past Surgical History: No Hx Neurologic Surgery: No Hx Cataract Extraction: No Hx Cardiac Surgery: No Hx Lung Surgery: No Hx Breast Surgery: No Hx Breast Biopsy: No Hx Abdominal Surgery: No Hx Appendectomy: No Hx Cholecystectomy: No Hx Genitourinary Surgery: No Hx Orthopedic Surgery: No Anesthesia Reaction: No - PPD History Previous Implant?: Yes Documented Results: Negative w/proof Implanted On Prior R Admission?: Yes Date: 09/24/18 Results: o mm PPD to be Administered?: No - Smoking Cessation Smoking history: Current every day smoker Have you smoked in the past 12 months: Yes Aproximately how many cigarettes per day: 10 Cigars Per Day: 0 Hx Chewing Tobacco Use: No Initiated information on smoking cessation: Yes 'Breaking Loose' booklet given: 05/16/19 - Substance & Tx. History Hx Alcohol Use: Yes Hx Substance Use: Yes Hx Substance Use Treatment: Yes (11[facility]19/[facility] - Substances abused Alcohol Substance route: Oral Frequency: Daily Amount used: 2 pints of vodka Age of first use: 27 Date of last use: 05/15/19 Family Disease History - Family Disease History Family Disease History: Diabetes: Father (, ), Brother (four living ), Heart Disease: Mother (, etoh), Other: Father, Mother, Brother, Sister ( two living ), Son (two - healthy - ages 22, 20), Daughter (one - healthy age 24) Admission Physical Exam [facility] - Vital Signs Vital Signs: Vital Signs - 24 hr 05/16/19 09:57 Temperature 97.6 F Pulse Rate 80 Respiratory 20 Rate Blood Pressure 136/78 - Physical General Appearance: Yes: Moderate Distress, Tremorous, Irritable, Anxious HEENTM: Yes: Normal ENT Inspection, SELENA, Pharynx Normal Respiratory: Yes: Lungs Clear, Normal Breath Sounds, No Respiratory Distress Neck: Yes: Within Normal Limits, Supple, Trachea in good position Breast: Yes: Within Normal Limits Cardiology: Yes: Within Normal Limits, Regular Rhythm, Regular Rate, S1, S2 Abdominal: Yes: Within Normal Limits, Normal Bowel Sounds, Non Tender, Flat Genitourinary: Yes: Within Normal Limits Back: Yes: Muscle Spasm Musculoskeletal: Yes: full range of Motion, Back pain, Muscle Pain Extremities: Yes: Normal Range of Motion, Tremors, Other (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 ) 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: finance effectiveness manager II-XII NML intact, Fully Oriented, Alert, Motor Strength 5/5 Integumentary: Yes: Dry - Diagnostic (1) Alcohol dependence with uncomplicated withdrawal Current Visit: No Status: Acute (2) Dehydration Current Visit: No Status: Acute (3) Weight loss Current Visit: No Status: Acute (4) Asthma Current Visit: No Status: Chronic Qualifiers: Asthma severity: mild Asthma persistence: intermittent Asthma complication type: with status asthmaticus Qualified Code(s): J45.22 - Mild intermittent asthma with status asthmaticus (5) Nicotine dependence Current Visit: No Status: Chronic Qualifiers: Nicotine product type: cigarettes Substance use status: in withdrawal Qualified Code(s): F17.213 - Nicotine dependence, cigarettes, with withdrawal (6) Alcohol dependence with intoxication Current Visit: Yes Status: Acute (7) Weight loss Current Visit: Yes Status: Acute (8) Deformity of finger Current Visit: Yes Status: Acute Cleared for Admission S - Detox or Rehab [facility] Level of Care: Medically Managed Detox Regimen/Protocol: Librium Breathalyzer - Breathalyzer Breathalyzer: 0.119 Urine Drug Screen - Test Device Lot number: [id number] Expiration date: 02/22/21 - Control Is test valid?: Yes - Results Drug screen NEGATIVE: No Urine drug screen results: THC-Marijuana Inpatient Rehab Admission - Rehab Decision to Admit Inpatient rehab admission?: No
[2019-05-16] MEDS ORDERED: MAGNESIUM CITRATE 300 ML BOTTLE PO PRN (11:56)
[2019-05-16] MEDS ORDERED: MAGNESIUM HYDROX 2400MG/30ML ORAL SUSPENSION 30 ML CUP PO PRN (11:56)
[2019-05-16] MEDS ORDERED: IBUPROFEN 400 MG TABLET (FP) PO PRN (11:56)
[2019-05-16] MEDS ORDERED: MAG HYDROX/AL HYDROX/SIMETH 30 ML UNIT-DOSE CUP PO PRN (11:56)
[2019-05-16] MEDS ORDERED: ACETAMINOPHEN 325 MG TABLET (FP) PO PRN ×2 (11:56)
[2019-05-16] MEDS ORDERED: chlordiazePOXIDE HCL 25 MG CAPSULE PO PRN (11:56)
[2019-05-16] MEDS ORDERED: hydrOXYzine PAMOATE 25 MG CAPSULE (FP) PO PRN (11:56)
[2019-05-16] MEDS ORDERED: BISMUTH SUBSALICYLATE 262 MG/15 ML BTL PO PRN (11:56)
[2019-05-16] MEDS ORDERED: MENTHOL/PHENOL 1 EACH UD MM PRN (11:56)
[2019-05-16] MEDS ORDERED: METHOCARBAMOL 500 MG TABLET PO PRN (11:56)
[2019-05-16] MEDS ORDERED: ALBUTEROL SO4 8 GM HFA INHALER IH PRN (11:59)
[2019-05-16] MEDS: NICOTINE 21 MG/24 HOURS TOPICAL PATCH TD SCH (12:41)
[2019-05-16] MEDS: chlordiazePOXIDE HCL 25 MG CAPSULE PO SCH ×2 (17:20→22:17)
[2019-05-16 17:28] LABS: HEMATOCRIT 40.7 % (35.4-49); HEMOGLOBIN 13.4 GM/dL (11.7-16.9); MCH 28.8 pg (25.7-33.7); MEAN CELL VOLUME 87.2 fl (80-96); PLATELET COUNT 159 K/MM3 (134-434); RBC 4.67 M/mm3 (4.00-5.60); RDW 15.6 % (11.9-15.9); WHITE BLOOD COUNT 4.4 K/mm3 (4.0-10.0)
[2019-05-16 17:34] LABS: PH,URINE 5.5 (5.0-8.0); URINE APPEARANCE CLEAR; URINE BILIRUBIN NEGATIVE (NEGATIVE); URINE COLOR YELLOW; URINE GLUCOSE (UA) NEGATIVE (NEGATIVE); URINE KETONE NEGATIVE (NEGATIVE); URINE LEUK ESTERASE NEGATIVE (NEGATIVE); URINE NITRITE NEGATIVE (NEGATIVE); URINE PROTEIN NEGATIVE (NEGATIVE); URINE UROBILINOGEN 0.2 mg/dL (0.2-1.0)
[2019-05-16 17:44] LABS: ALBUMIN 4.4 g/dl (3.4-5.0); BILIRUBIN,TOTAL 0.4 mg/dL (0.2-1); BLOOD UREA NITROGEN 13.4 mg/dL (7-18); CALCIUM 8.8 mg/dL (8.5-10.1); CREATININE 0.8 mg/dL (0.55-1.3); POTASSIUM 3.6 mmol/L (3.5-5.1); TOT PROT 7.1 g/dl (6.4-8.2)
[2019-05-16] MEDS: THIAMINE HCL 100 MG TABLET (FP) PO SCH (22:17)
[2019-05-16] MEDS: MELATONIN 5 MG TABLETS PO PRN (22:18)
[2019-05-17] MEDS: chlordiazePOXIDE HCL 25 MG CAPSULE PO SCH ×4 (05:15→22:19)
[2019-05-17] MEDS: PRENATAL VITAMINS W/ FOLIC ACID TABLET (FP) PO SCH (10:34)
[2019-05-17] MEDS: NICOTINE 21 MG/24 HOURS TOPICAL PATCH TD SCH (10:35)
--- NOTE | 2019-05-17 13:14 | PN ---
[facility] CIWA - CIWA Score Nausea/Vomitin-No Nausea/No Vomiting Muscle Tremors: 3 Anxiety: 4-Mod. Anxious/Guarded Agitation: 0-Normal Activity Paroxysmal Sweats: 3 Orientation: 0-Oriented Tacttile Disturbances: 1-Very Mild Itch/Numbness Auditory Disturbances: 0-None Visual Disturbances: 2-Mild Sensitivity Headache: 0-None Present CIWA-Ar Total Score: 13 [facility] Progress Note (SOAP) Subjective: Tremors, Fatigue, Anxious, Sweating. Objective: PATIENT A & O X 3. IN NO ACUTE DISTRESS. 05/17/19 13:12 Vital Signs Temperature 97.0 F L 05/17/19 09:23 Pulse Rate 59 L 05/17/19 09:23 Respiratory Rate 17 05/17/19 09:23 Blood Pressure 119/76 05/17/19 09:23 O2 Sat by Pulse Oximetry (%) Laboratory Tests 05/16/19 05/16/19 05/16/19 12:40 12:40 12:40 WBC 4.4 RBC 4.67 Hgb 13.4 Hct 40.7 MCV 87.2 MCH 28.8 MCHC 33.0 RDW 15.6 Plt Count 159 MPV 10.0 Sodium 143 Potassium 3.6 Chloride 108 H Carbon Dioxide 24 Anion Gap 12 BUN 13.4 Creatinine 0.8 Est GFR (CKD-EPI)AfAm 122.43 Est GFR (CKD-EPI)NonAf 105.63 Random Glucose 91 Calcium 8.8 Total Bilirubin 0.4 AST 50 H ALT 47 Alkaline Phosphatase 89 Total Protein 7.1 Albumin 4.4 Urine Color Urine Appearance Urine pH Ur Specific [place] Urine Protein Urine Glucose (UA) Urine Ketones Urine Blood Urine Nitrite Urine Bilirubin Urine Urobilinogen Ur Leukocyte Esterase RPR Titer Nonreactive HIV 1&2 Antibody Screen HIV P24 Antigen 05/16/19 05/16/19 12:40 15:15 WBC RBC Hgb Hct MCV MCH MCHC RDW Plt Count MPV Sodium Potassium Chloride Carbon Dioxide Anion Gap BUN Creatinine Est GFR (CKD-EPI)AfAm Est GFR (CKD-EPI)NonAf Random Glucose Calcium Total Bilirubin AST ALT Alkaline Phosphatase Total Protein Albumin Urine Color Yellow Urine Appearance Clear Urine pH 5.5 Ur Specific [place] 1.016 Urine Protein Negative Urine Glucose (UA) Negative Urine Ketones Negative Urine Blood Negative Urine Nitrite Negative Urine Bilirubin Negative Urine Urobilinogen 0.2 Ur Leukocyte Esterase Negative RPR Titer HIV 1&2 Antibody Screen Cancelled HIV P24 Antigen Cancelled LABS NOTED. RESULTS OF DETOX ADMISSION HIV AB TEST PENDING. 05/17/19 13:14 Assessment: 05/17/19 13:12 WITHDRAWAL SYMPTOMS. ELEVATED AST LEVEL. 05/17/19 13:13 Plan: CONTINUE DETOX.
[2019-05-17] MEDS: THIAMINE HCL 100 MG TABLET (FP) PO SCH (22:19)
[2019-05-17] MEDS: MELATONIN 5 MG TABLETS PO PRN (22:20)
[2019-05-18] MEDS: chlordiazePOXIDE HCL 25 MG CAPSULE PO SCH ×3 (05:39→17:33)
[2019-05-18] MEDS: PRENATAL VITAMINS W/ FOLIC ACID TABLET (FP) PO SCH (10:22)
[2019-05-18] MEDS: NICOTINE 21 MG/24 HOURS TOPICAL PATCH TD SCH (10:23)
--- NOTE | 2019-05-18 12:39 | PN ---
[facility] CIWA - CIWA Score Nausea/Vomitin-No Nausea/No Vomiting Muscle Tremors: 3 Anxiety: 3 Agitation: 1-Slight > Activity Paroxysmal Sweats: 2 Orientation: 0-Oriented Tacttile Disturbances: 0-None Auditory Disturbances: 0-None Visual Disturbances: 2-Mild Sensitivity Headache: 0-None Present CIWA-Ar Total Score: 11 [facility] Progress Note (SOAP) Subjective: Tremors, Sweating, Fatigue, Anxious. Patient reports That Current withdrawal Detox Symptoms in General Are Gradually Beginning to Diminish in Severity. Objective: PATIENT A & O X 3, OBSERVED AMBULATING ON UNIT UNASSISTED. IN NO ACUTE DISTRESS. 05/18/19 12:39 Vital Signs Temperature 96.9 F L 05/18/19 09:12 Pulse Rate 65 05/18/19 09:12 Respiratory Rate 18 05/18/19 09:12 Blood Pressure 128/77 05/18/19 09:12 O2 Sat by Pulse Oximetry (%) Laboratory Tests 05/16/19 05/16/19 05/16/19 12:40 12:40 12:40 WBC 4.4 RBC 4.67 Hgb 13.4 Hct 40.7 MCV 87.2 MCH 28.8 MCHC 33.0 RDW 15.6 Plt Count 159 MPV 10.0 Sodium 143 Potassium 3.6 Chloride 108 H Carbon Dioxide 24 Anion Gap 12 BUN 13.4 Creatinine 0.8 Est GFR (CKD-EPI)AfAm 122.43 Est GFR (CKD-EPI)NonAf 105.63 Random Glucose 91 Calcium 8.8 Total Bilirubin 0.4 AST 50 H ALT 47 Alkaline Phosphatase 89 Total Protein 7.1 Albumin 4.4 Urine Color Urine Appearance Urine pH Ur Specific [place] Urine Protein Urine Glucose (UA) Urine Ketones Urine Blood Urine Nitrite Urine Bilirubin Urine Urobilinogen Ur Leukocyte Esterase RPR Titer Nonreactive HIV 1&2 Ag/Ab, 4th Gen HIV 1&2 Antibody Screen HIV P24 Antigen 05/16/19 05/16/19 05/17/19 12:40 15:15 10:00 WBC RBC Hgb Hct MCV MCH MCHC RDW Plt Count MPV Sodium Potassium Chloride Carbon Dioxide Anion Gap BUN Creatinine Est GFR (CKD-EPI)AfAm Est GFR (CKD-EPI)NonAf Random Glucose Calcium Total Bilirubin AST ALT Alkaline Phosphatase Total Protein Albumin Urine Color Yellow Urine Appearance Clear Urine pH 5.5 Ur Specific [place] 1.016 Urine Protein Negative Urine Glucose (UA) Negative Urine Ketones Negative Urine Blood Negative Urine Nitrite Negative Urine Bilirubin Negative Urine Urobilinogen 0.2 Ur Leukocyte Esterase Negative RPR Titer HIV 1&2 Ag/Ab, 4th Gen Non reactive HIV 1&2 Antibody Screen Cancelled HIV P24 Antigen Cancelled LABS NOTED. Assessment: 05/18/19 12:40 WITHDRAWAL SYMPTOMS. ELEVATED AST LEVEL. 05/18/19 12:41 Plan: CONTINUE DETOX.
[2019-05-18 17:32] VITALS: BP 128/84; PULSE 69; TEMP 97.2
--- NOTE | 2019-05-18 20:56 | DS ---
[facility] Detox Discharge Summary Admission Date: 05/16/19 Discharge Date: 05/18/19 - History Present History: Alcohol Dependence Pertinent Past History: ASTHMA SCHIZOPHRENIA - Physical Exam Results Vital Signs: Vital Signs Temperature 97.2 F L 05/18/19 17:31 Pulse Rate 69 05/18/19 17:31 Respiratory Rate 18 05/18/19 17:31 Blood Pressure 128/84 05/18/19 17:31 O2 Sat by Pulse Oximetry (%) Pertinent Admission Physical Exam Findings: withdrawal sx's Laboratory Tests 05/16/19 05/16/19 05/16/19 12:40 12:40 12:40 WBC 4.4 RBC 4.67 Hgb 13.4 Hct 40.7 MCV 87.2 MCH 28.8 MCHC 33.0 RDW 15.6 Plt Count 159 MPV 10.0 Sodium 143 Potassium 3.6 Chloride 108 H Carbon Dioxide 24 Anion Gap 12 BUN 13.4 Creatinine 0.8 Est GFR (CKD-EPI)AfAm 122.43 Est GFR (CKD-EPI)NonAf 105.63 Random Glucose 91 Calcium 8.8 Total Bilirubin 0.4 AST 50 H ALT 47 Alkaline Phosphatase 89 Total Protein 7.1 Albumin 4.4 Urine Color Urine Appearance Urine pH Ur Specific [place] Urine Protein Urine Glucose (UA) Urine Ketones Urine Blood Urine Nitrite Urine Bilirubin Urine Urobilinogen Ur Leukocyte Esterase RPR Titer Nonreactive HIV 1&2 Ag/Ab, 4th Gen HIV 1&2 Antibody Screen HIV P24 Antigen 05/16/19 05/16/19 05/17/19 12:40 15:15 10:00 WBC RBC Hgb Hct MCV MCH MCHC RDW Plt Count MPV Sodium Potassium Chloride Carbon Dioxide Anion Gap BUN Creatinine Est GFR (CKD-EPI)AfAm Est GFR (CKD-EPI)NonAf Random Glucose Calcium Total Bilirubin AST ALT Alkaline Phosphatase Total Protein Albumin Urine Color Yellow Urine Appearance Clear Urine pH 5.5 Ur Specific [place] 1.016 Urine Protein Negative Urine Glucose (UA) Negative Urine Ketones Negative Urine Blood Negative Urine Nitrite Negative Urine Bilirubin Negative Urine Urobilinogen 0.2 Ur Leukocyte Esterase Negative RPR Titer HIV 1&2 Ag/Ab, 4th Gen Non reactive HIV 1&2 Antibody Screen Cancelled HIV P24 Antigen Cancelled - Treatment Hospital Course: Discharged Condition Good Patient has Accepted a Rehab Referral to: declined - Medication Discharge Medications: Ambulatory Orders Albuterol Sulfate Inhaler - [Ventolin HFA Inhaler -] 2 inh PO Q4H PRN #1 inhaler 05/18/19 - Diagnosis (1) Deformity of finger Current Visit: Yes Status: Acute (2) Weight loss Current Visit: Yes Status: Acute (3) Alcohol dependence with uncomplicated withdrawal Current Visit: Yes Status: Acute (4) Asthma Current Visit: Yes Status: Chronic Qualifiers: Asthma severity: mild Asthma persistence: intermittent Asthma complication type: with status asthmaticus Qualified Code(s): J45.22 - Mild intermittent asthma with status asthmaticus (5) Nicotine dependence Current Visit: Yes Status: Chronic Qualifiers: Nicotine product type: cigarettes Substance use status: in withdrawal Qualified Code(s): F17.213 - Nicotine dependence, cigarettes, with withdrawal - AMA Did Patient Leave Against Medical Advice: Yes
[2019-05-19] MEDS ORDERED: chlordiazePOXIDE HCL 10 MG CAPSULE PO PRN
[2019-05-19] MEDS ORDERED: chlordiazePOXIDE HCL 10 MG CAPSULE PO SCH (05:00)
[2019-05-20] MEDS ORDERED: chlordiazePOXIDE HCL 10 MG CAPSULE PO SCH (05:00)
[2019-05-21] MEDS ORDERED: chlordiazePOXIDE HCL 10 MG CAPSULE PO ONE (05:00)
== END 2019-05-18 20:35 | disposition left against medical advice (07) | DRG 770 ==
LOC: YASAS 09:06 → Y3N 11:57
PROVIDERS: ADMIT Surgery; ATTEND Surgery
PROC: HZ2ZZZZ Detoxification Services for Substance Abuse Treatment (ICD-10-PCS; principal; 2019-05-16)
DX: F10.230 Alcohol dependence with withdrawal, uncomplicated (principal); F12.20 Cannabis dependence, uncomplicated; F17.213 Nicotine dependence, cigarettes, with withdrawal; F20.9 Schizophrenia, unspecified; Q68.1 Congenital deformity of finger(s) and hand; J45.22 Mild intermittent asthma with status asthmaticus; E80.6 Other disorders of bilirubin metabolism; R63.4 Abnormal weight loss; Z68.26 Body mass index [BMI] 26.0-26.9, adult
CPT/HCPCS: 36415; 80053; 81003; 85027; 86593; 87389

== ENCOUNTER 2019-05-25 09:00 | Inpatient (IN) | payer OTHER ==
[2019-05-25 09:20] VITALS: BMI 25.3
--- NOTE | 2019-05-25 09:46 | HP ---
CIWA Score Nausea/Vomitin Muscle Tremors: 2 Anxiety: 3 Agitation: 3 Paroxysmal Sweats: 1-Minimal Palms Moist Orientation: 0-Oriented Tacttile Disturbances: 1-Very Mild Itch/Numbness Auditory Disturbances: 0-None Visual Disturbances: 0-None Headache: 2-Mild CIWA-Ar Total Score: 14 - Admission Criteria OASAS Guidelines: Admission for Medically Managed Detox: Requires at least one of the followin. CIWA greater than 12 2. Seizures within the past 24 hours 3. Delirium tremens within the past 24 hours 4. Hallucinations within the past 24 hours 5. Acute intervention needed for co occurring medical disorder 6. Acute intervention needed for co occurring psychiatric disorder 7. Severe withdrawal that cannot be handled at a lower level of care (continued vomiting, continued diarrhea, abnormal vital signs) requiring intravenous medication and/or fluids 8. Admission ROS S - HPI Chief Complaint: I am alcoholic,need help to stop drinking alcohol Allergies/Adverse Reactions: Allergies Allergy/AdvReac Type Severity Reaction Status Date / Time No Known Allergies Allergy Verified 05/25/19 09:13 History of Present Illness: This 48 years old male with alcohol dependence,extensive history of alcohol dependence, last admission [facility] 05/16/19 to 05/18/19 not completed,has to leave due to family emergency denied seizure syncope has been on the binge of drinking since left this facility insomnia weight loss had previous longest sobriety 1 year from 2017 to 2018 nicotine dependence 10 cigarette/day,would like nicotine patch plan for out patient program after detox has childhood asthma - Ebola screening Have you traveled outside of the country in the last 21 days: No (N) Have you had contact with anyone from an Ebola affected area: No Do you have a fever: No - Review of Systems Constitutional: Loss of Appetite, Malaise, Night Sweats, Changes in sleep, Weakness, Unintentional Wgt. Loss EENT: reports: Nose Congestion Respiratory: reports: No Symptoms reported Cardiac: reports: No Symptoms Reported GI: reports: Nausea, Poor Appetite, Abdominal cramping : reports: No Symptoms Reported Musculoskeletal: reports: Back Pain, Muscle Pain Integumentary: reports: Dryness Neuro: reports: Headache, Tremors Endocrine: reports: No Symptoms Reported Hematology: reports: No Symptoms Reported Psychiatric: reports: No Sypmtoms Reported, Judgement Intact, Mood/Affect Appropiate, Orientated x3, other (insomnia) Other Systems: Reviewed and Negative Patient History - Patient Medical History Hx Anemia: No Hx Asthma: Yes (childhood asthma,no med now) Hx Chronic Obstructive Pulmonary Disease (COPD): No Hx Cancer: No Hx Cardiac Disorders: No Hx Congestive Heart Failure: No Hx Hypertension: No Hx Hypercholesterolemia: No Hx Pacemaker: No HX Cerebrovascular Accident: No Hx Seizures: No Hx Dementia: No Hx Diabetes: No Hx Gastrointestinal Disorders: No Hx Liver Disease: No Hx Genitourinary Disorders: No Hx Sexually Transmitted Disorders: No Hx Renal Disease (ESRD): No Hx Thyroid Disease: No Hx Human Immunodeficiency Virus (HIV): No (negative LAST 2017) Hx Hepatitis C: No (negative) Hx Depression: No Hx Suicide Attempt: No Hx Bipolar Disorder: No Hx Schizophrenia: Yes (no med,do not want to see psychiatrist) Other Medical History: no suicidal,no homicidal - Patient Surgical History Past Surgical History: No Hx Neurologic Surgery: No Hx Cataract Extraction: No Hx Cardiac Surgery: No Hx Lung Surgery: No Hx Breast Surgery: No Hx Breast Biopsy: No Hx Abdominal Surgery: No Hx Appendectomy: No Hx Cholecystectomy: No Hx Genitourinary Surgery: No Hx Section: No Hx Orthopedic Surgery: No Anesthesia Reaction: No - PPD History Previous Implant?: Yes Documented Results: Negative w/proof Date: 09/24/18 Results: o mm PPD to be Administered?: No - Smoking Cessation Smoking history: Current every day smoker Have you smoked in the past 12 months: Yes Aproximately how many cigarettes per day: 10 Cigars Per Day: 0 Hx Chewing Tobacco Use: No Initiated information on smoking cessation: Yes 'Breaking Loose' booklet given: 05/25/19 - Substance & Tx. History Hx Alcohol Use: Yes Hx Substance Use: No Substance Use Type: Alcohol Hx Substance Use Treatment: Yes ([facility] 05/16/19 to 05/18/19) - Substances abused Alcohol Substance route: Oral Frequency: Daily Amount used: 2 pints of vodka Age of first use: 27 Date of last use: 05/25/19 Family Disease History - Family Disease History Family Disease History: Diabetes: Father (, ), Brother (four living ), Heart Disease: Mother (, etoh), Other: Father, Mother, Brother, Sister ( two living ), Son (two - healthy - ages 22, 20), Daughter (one - healthy age 24) Admission Physical Exam [facility] - Vital Signs Vital Signs: Vital Signs - 24 hr 05/25/19 05/25/19 09:16 09:29 Temperature 97.9 F 97.9 F Pulse Rate 76 76 Respiratory 16 16 Rate Blood Pressure 135/99 135/99 - Physical General Appearance: Yes: Moderate Distress, Tremorous, Irritable, Sweating, Anxious HEENTM: Yes: Normal ENT Inspection, SELENA, Pharynx Normal Respiratory: Yes: Lungs Clear, Normal Breath Sounds, No Respiratory Distress Neck: Yes: Within Normal Limits, Supple, Trachea in good position Breast: Yes: Within Normal Limits Cardiology: Yes: Regular Rhythm, Regular Rate, S1, S2 Abdominal: Yes: Within Normal Limits, Normal Bowel Sounds, Non Tender, Flat, Soft Genitourinary: Yes: Within Normal Limits Back: Yes: Muscle Spasm Musculoskeletal: Yes: Back pain, Muscle Pain Extremities: Yes: Tremors, 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) 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: bottle selector II-XII NML intact, Fully Oriented, Alert, Motor Strength 5/5 Integumentary: Yes: Dry Lymphatic: Yes: Within Normal Limits - Diagnostic (1) Alcohol dependence with intoxication Current Visit: No Status: Acute (2) Alcohol dependence with uncomplicated withdrawal Current Visit: No Status: Acute (3) Deformity of finger Current Visit: No Status: Acute (4) Dehydration Current Visit: No Status: Acute (5) Weight loss Current Visit: No Status: Acute (6) Asthma Current Visit: No Status: Chronic Qualifiers: Asthma severity: mild Asthma persistence: intermittent Asthma complication type: with status asthmaticus Qualified Code(s): J45.22 - Mild intermittent asthma with status asthmaticus Cleared for Admission [facility] - Detox or Rehab [facility] Level of Care: Medically Managed Detox Regimen/Protocol: Librium Breathalyzer - Breathalyzer Breathalyzer: 0.111 Urine Drug Screen - Test Device Lot number: [id number] Expiration date: 02/22/21 - Control Is test valid?: Yes - Results Drug screen NEGATIVE: No Urine drug screen results: THC-Marijuana, SNOW-Cocaine, BZO-Benzodiazepines Inpatient Rehab Admission - Rehab Decision to Admit Inpatient rehab admission?: No
[2019-05-25] MEDS ORDERED: METHOCARBAMOL 500 MG TABLET PO PRN (09:55)
[2019-05-25] MEDS ORDERED: MENTHOL/PHENOL 1 EACH UD MM PRN (09:55)
[2019-05-25] MEDS ORDERED: hydrOXYzine PAMOATE 25 MG CAPSULE (FP) PO PRN (09:55)
[2019-05-25] MEDS ORDERED: IBUPROFEN 400 MG TABLET (FP) PO PRN (09:55)
[2019-05-25] MEDS ORDERED: MAGNESIUM HYDROX 2400MG/30ML ORAL SUSPENSION 30 ML CUP PO PRN (09:55)
[2019-05-25] MEDS ORDERED: chlordiazePOXIDE HCL 25 MG CAPSULE PO PRN (09:55)
[2019-05-25] MEDS ORDERED: ACETAMINOPHEN 325 MG TABLET (FP) PO PRN ×2 (09:55)
[2019-05-25] MEDS ORDERED: BISMUTH SUBSALICYLATE 524 MG/30 ML UD PO PRN (09:55)
[2019-05-25] MEDS ORDERED: MAGNESIUM CITRATE 300 ML BOTTLE PO PRN (09:55)
[2019-05-25] MEDS: PRENATAL VITAMINS W/ FOLIC ACID TABLET (FP) PO SCH (11:07)
[2019-05-25] MEDS: chlordiazePOXIDE HCL 25 MG CAPSULE PO SCH ×3 (11:07→22:08)
[2019-05-25] MEDS: NICOTINE 21 MG/24 HOURS TOPICAL PATCH TD SCH (11:07)
[2019-05-25] MEDS: THIAMINE HCL 100 MG TABLET (FP) PO SCH (22:08)
[2019-05-25 22:23] LABS: HEMATOCRIT 45.4 % (35.4-49); HEMOGLOBIN 15.2 GM/dL (11.7-16.9); MCH 28.5 pg (25.7-33.7); MCHC 33.4 g/dl (32.0-35.9); MEAN CELL VOLUME 85.4 fl (80-96); MEAN PLT VOLUME 9.1 fl (7.5-11.1); PLATELET COUNT 234 K/MM3 (134-434); RBC 5.32 M/mm3 (4.00-5.60); RDW 14.8 % (11.9-15.9); WHITE BLOOD COUNT 5.9 K/mm3 (4.0-10.0)
[2019-05-25 22:35] LABS: ALBUMIN 4.4 g/dl (3.4-5.0); BILIRUBIN,TOTAL 0.9 mg/dL (0.2-1); BLOOD UREA NITROGEN 12.4 mg/dL (7-18); CREATININE 0.8 mg/dL (0.55-1.3); POTASSIUM 3.4 mmol/L (3.5-5.1); TOT PROT 7.4 g/dl (6.4-8.2)
[2019-05-26] MEDS: chlordiazePOXIDE HCL 25 MG CAPSULE PO SCH ×4 (06:02→22:06)
[2019-05-26] MEDS: NICOTINE 21 MG/24 HOURS TOPICAL PATCH TD SCH (10:12)
[2019-05-26] MEDS: PRENATAL VITAMINS W/ FOLIC ACID TABLET (FP) PO SCH (10:12)
--- NOTE | 2019-05-26 12:48 | PN ---
[facility] CIWA - CIWA Score Nausea/Vomitin-Mild Nausea/No Vomiting Muscle Tremors: 3 Anxiety: 3 Agitation: 2 Paroxysmal Sweats: 3 Orientation: 0-Oriented Tacttile Disturbances: 0-None Auditory Disturbances: 0-None Visual Disturbances: 0-None Headache: 0-None Present CIWA-Ar Total Score: 12 S Progress Note (SOAP) Subjective: Sweating, interrupted sleep Objective: 05/26/19 12:43 Last Vital Signs Temp Pulse Resp BP Pulse Ox 98.1 F 64 16 136/95 05/26/19 09:12 05/26/19 09:12 05/26/19 09:12 05/26/19 09:12 Elevated b/p 136/95 Laboratory Tests 05/25/19 05/25/19 05/25/19 10:10 10:10 10:10 WBC 5.9 RBC 5.32 Hgb 15.2 Hct 45.4 MCV 85.4 MCH 28.5 MCHC 33.4 RDW 14.8 Plt Count 234 D MPV 9.1 Sodium 139 Potassium 3.4 L Chloride 105 Carbon Dioxide 24 Anion Gap 11 BUN 12.4 Creatinine 0.8 Est GFR (CKD-EPI)AfAm 122.43 Est GFR (CKD-EPI)NonAf 105.63 Random Glucose 124 H Calcium 9.0 Total Bilirubin 0.9 AST 49 H ALT 54 Alkaline Phosphatase 104 Total Protein 7.4 Albumin 4.4 RPR Titer HIV 1&2 Antibody Screen Cancelled HIV P24 Antigen Cancelled 05/25/19 10:10 WBC RBC Hgb Hct MCV MCH MCHC RDW Plt Count MPV Sodium Potassium Chloride Carbon Dioxide Anion Gap BUN Creatinine Est GFR (CKD-EPI)AfAm Est GFR (CKD-EPI)NonAf Random Glucose Calcium Total Bilirubin AST ALT Alkaline Phosphatase Total Protein Albumin RPR Titer Nonreactive HIV 1&2 Antibody Screen HIV P24 Antigen Labs reviewed: K 3.4, serum glucose 124 Assessment: 05/26/19 12:45 Withdrawal sxs Noted with elevated blood pressure, mild hypokalemia and hyperglycemia Plan: Continue detox Encouraged PO water intake Elevated blood pressure (denies htn): could be r/t withdrawal, start clonidine prn Hypokalemia: start K Dur 40 Meq PO x 2 doses (give at least 4 hours apart), repeat serum K level in AM Hyperglycemia: could be r/t withdrawing, repeat serum fasting glucose
[2019-05-26] MEDS ORDERED: cloNIDine HCL 0.1 MG TABLET PO PRN (12:50)
[2019-05-26] MEDS ORDERED: POTASSIUM CHLORIDE TABS 20 MEQ TABLET.ER (FP) PO ONE ×2 (12:51→20:00)
[2019-05-26 13:26] LABS: URINE APPEARANCE CLEAR; URINE BILIRUBIN NEGATIVE (NEGATIVE); URINE COLOR DK YELLOW; URINE GLUCOSE (UA) NEGATIVE (NEGATIVE); URINE KETONE TRACE (NEGATIVE); URINE LEUK ESTERASE NEGATIVE (NEGATIVE); URINE NITRITE NEGATIVE (NEGATIVE); URINE PROTEIN NEGATIVE (NEGATIVE)
[2019-05-26] MEDS: MELATONIN 5 MG TABLETS PO PRN (22:06)
[2019-05-26] MEDS: THIAMINE HCL 100 MG TABLET (FP) PO SCH (22:06)
[2019-05-27] MEDS: chlordiazePOXIDE HCL 25 MG CAPSULE PO SCH ×4 (06:00→22:14)
[2019-05-27 09:39] LABS: POTASSIUM 4.3 mmol/L (3.5-5.1)
--- NOTE | 2019-05-27 09:42 | PN ---
S CIWA - CIWA Score Nausea/Vomitin-Mild Nausea/No Vomiting Muscle Tremors: 2 Anxiety: 3 Agitation: 3 Paroxysmal Sweats: No Perspiration Orientation: 0-Oriented Tacttile Disturbances: 1-Very Mild Itch/Numbness Auditory Disturbances: 0-None Visual Disturbances: 0-None Headache: 2-Mild CIWA-Ar Total Score: 12 BHS Progress Note (SOAP) Subjective: alert,irritable,anxious,interrupted sleep,tremor Objective: 05/27/19 09:40 Vital Signs Temperature 96.8 F L 05/27/19 07:41 Pulse Rate 67 05/27/19 07:41 Respiratory Rate 18 05/27/19 07:41 Blood Pressure 119/80 05/27/19 07:41 O2 Sat by Pulse Oximetry (%) fsting blood glucose pending Assessment: 05/27/19 09:41 withdrawal symptom Plan: continue detox librium regimen
--- NOTE | 2019-05-27 09:46 | PN ---
S Progress Note Note: k is 3.4,hypokalemia,received k dur 40 meq yesterday,repeat k 4.3, fasting blood glucose pending
[2019-05-27] MEDS ORDERED: POTASSIUM CHLORIDE TABS 10 MEQ TABLET.ER (FP) PO SCH (10:00)
[2019-05-27] MEDS: NICOTINE 21 MG/24 HOURS TOPICAL PATCH TD SCH (10:01)
[2019-05-27] MEDS: PRENATAL VITAMINS W/ FOLIC ACID TABLET (FP) PO SCH (10:01)
[2019-05-27] MEDS: MAG HYDROX/AL HYDROX/SIMETH 30 ML UNIT-DOSE CUP PO PRN (16:00)
[2019-05-27] MEDS: THIAMINE HCL 100 MG TABLET (FP) PO SCH (22:14)
[2019-05-27] MEDS: MELATONIN 5 MG TABLETS PO PRN (22:15)
[2019-05-28] MEDS ORDERED: chlordiazePOXIDE HCL 10 MG CAPSULE PO PRN
[2019-05-28] MEDS: chlordiazePOXIDE HCL 10 MG CAPSULE PO SCH ×4 (05:35→22:11)
--- NOTE | 2019-05-28 08:58 | PN ---
S CIWA - CIWA Score Nausea/Vomitin-Mild Nausea/No Vomiting Muscle Tremors: 1-None Visible, but [place] Anxiety: 2 Agitation: 2 Paroxysmal Sweats: No Perspiration Orientation: 0-Oriented Tacttile Disturbances: 1-Very Mild Itch/Numbness Auditory Disturbances: 0-None Visual Disturbances: 0-None Headache: 2-Mild CIWA-Ar Total Score: 9 BHS Progress Note (SOAP) Subjective: alert,irritable,anxious,interrupted sleep Objective: 05/28/19 08:56 Vital Signs Temperature 97.3 F L 05/28/19 06:00 Pulse Rate 56 L 05/28/19 06:00 Respiratory Rate 18 05/28/19 06:00 Blood Pressure 129/64 05/28/19 06:00 O2 Sat by Pulse Oximetry (%) 05/28/19 08:56 hiv test pending Assessment: 05/28/19 08:57 Laboratory Results - last 24 hr 05/27/19 07:30 Potassium 4.3 Fasting Glucose 88 Plan: continue detox librium regimen,hiv tiffanie still pending
[2019-05-28] MEDS: NICOTINE 21 MG/24 HOURS TOPICAL PATCH TD SCH (10:09)
[2019-05-28] MEDS: PRENATAL VITAMINS W/ FOLIC ACID TABLET (FP) PO SCH (10:09)
[2019-05-28] MEDS: MAG HYDROX/AL HYDROX/SIMETH 30 ML UNIT-DOSE CUP PO PRN (12:06)
[2019-05-28] MEDS: MELATONIN 5 MG TABLETS PO PRN (22:11)
[2019-05-28] MEDS: THIAMINE HCL 100 MG TABLET (FP) PO SCH (22:28)
[2019-05-29] MEDS ORDERED: chlordiazePOXIDE HCL 10 MG CAPSULE PO SCH (05:00)
--- NOTE | 2019-05-29 08:33 | PN ---
S CIWA - CIWA Score Nausea/Vomitin-No Nausea/No Vomiting Muscle Tremors: 1-None Visible, but [place] Anxiety: 1-Mildly Anxious Agitation: 0-Normal Activity Paroxysmal Sweats: No Perspiration Orientation: 0-Oriented Tacttile Disturbances: 0-None Auditory Disturbances: 0-None Visual Disturbances: 0-None Headache: 0-None Present CIWA-Ar Total Score: 2 BHS Progress Note (SOAP) Subjective: alert,no complaint Objective: 05/29/19 08:31 Vital Signs Temperature 98.2 F 05/29/19 06:29 Pulse Rate 63 05/29/19 06:29 Respiratory Rate 18 05/29/19 06:29 Blood Pressure 123/80 05/29/19 06:29 O2 Sat by Pulse Oximetry (%) Assessment: 05/29/19 08:32 detox completed ,no withdrawal symptom hiv test negative Plan: discharge today,follow up with after care program as arrangement
--- NOTE | 2019-05-29 08:35 | DS ---
[facility] Detox Discharge Summary Admission Date: 05/25/19 Discharge Date: 05/29/19 - History Present History: Alcohol Dependence Pertinent Past History: follow up with after care program as arrangement - Physical Exam Results Vital Signs: Vital Signs Temperature 98.2 F 05/29/19 06:29 Pulse Rate 63 05/29/19 06:29 Respiratory Rate 18 05/29/19 06:29 Blood Pressure 123/80 05/29/19 06:29 O2 Sat by Pulse Oximetry (%) Pertinent Admission Physical Exam Findings: withdrawal sign and symptom Laboratory Last Values WBC 5.9 K/mm3 (4.0-10.0) 05/25/19 10:10 RBC 5.32 M/mm3 (4.00-5.60) 05/25/19 10:10 Hgb 15.2 GM/dL (11.7-16.9) 05/25/19 10:10 Hct 45.4 % (35.4-49) 05/25/19 10:10 MCV 85.4 fl (80-96) 05/25/19 10:10 MCH 28.5 pg (25.7-33.7) 05/25/19 10:10 MCHC 33.4 g/dl (32.0-35.9) 05/25/19 10:10 RDW 14.8 % (11.9-15.9) 05/25/19 10:10 Plt Count 234 K/MM3 (134-434) D 05/25/19 10:10 MPV 9.1 fl (7.5-11.1) 05/25/19 10:10 Sodium 139 mmol/L (136-145) 05/25/19 10:10 Potassium 4.3 mmol/L (3.5-5.1) 05/27/19 07:30 Chloride 105 mmol/L (98-107) 05/25/19 10:10 Carbon Dioxide 24 mmol/L (21-32) 05/25/19 10:10 Anion Gap 11 MMOL/L (8-16) 05/25/19 10:10 BUN 12.4 mg/dL (7-18) 05/25/19 10:10 Creatinine 0.8 mg/dL (0.55-1.3) 05/25/19 10:10 Est GFR (CKD-EPI)AfAm 122.43 05/25/19 10:10 Est GFR (CKD-EPI)NonAf 105.63 05/25/19 10:10 Random Glucose 124 mg/dL (74-106) H 05/25/19 10:10 Fasting Glucose 88 mg/dL (74-106) 05/27/19 07:30 Calcium 9.0 mg/dL (8.5-10.1) 05/25/19 10:10 Total Bilirubin 0.9 mg/dL (0.2-1) 05/25/19 10:10 AST 49 U/L (15-37) H 05/25/19 10:10 ALT 54 U/L (13-61) 05/25/19 10:10 Alkaline Phosphatase 104 U/L (45-117) 05/25/19 10:10 Total Protein 7.4 g/dl (6.4-8.2) 05/25/19 10:10 Albumin 4.4 g/dl (3.4-5.0) 05/25/19 10:10 Urine Color Dk yellow 05/26/19 09:01 Urine Appearance Clear 05/26/19 09:01 Urine pH 5.0 (5.0-8.0) 05/26/19 09:01 Ur Specific [place] 1.019 (1.010-1.035) 05/26/19 09:01 Urine Protein Negative (NEGATIVE) 05/26/19 09:01 Urine Glucose (UA) Negative (NEGATIVE) 05/26/19 09:01 Urine Ketones Trace (NEGATIVE) H 05/26/19 09:01 Urine Blood Negative (NEGATIVE) 05/26/19 09:01 Urine Nitrite Negative (NEGATIVE) 05/26/19 09:01 Urine Bilirubin Negative (NEGATIVE) 05/26/19 09:01 Urine Urobilinogen 1.0 mg/dL (0.2-1.0) 05/26/19 09:01 Ur Leukocyte Esterase Negative (NEGATIVE) 05/26/19 09:01 RPR Titer Nonreactive (NONREACTIVE) 05/25/19 10:10 HIV 1&2 Ag/Ab, 4th Gen Non reactive (Non Reactive) 05/25/19 10:10 HIV 1&2 Antibody Screen Cancelled 05/25/19 10:10 HIV P24 Antigen Cancelled 05/25/19 10:10 patient valencia hypokalemia k is 3.4 on 05/25/19 repeat k is 4.3 on 05/27/19 - Treatment Hospital Course: Detox Protocol Followed - Medication Discharge Medications: Ambulatory Orders NK [No Known Home Medication] 05/25/19 - Diagnosis (1) Alcohol dependence with intoxication Current Visit: No Status: Acute (2) Alcohol dependence with uncomplicated withdrawal Current Visit: No Status: Acute (3) Deformity of finger Current Visit: No Status: Acute (4) Dehydration Current Visit: No Status: Acute (5) Weight loss Current Visit: No Status: Acute (6) Asthma Current Visit: No Status: Chronic Qualifiers: Asthma severity: mild Asthma persistence: intermittent Asthma complication type: with status asthmaticus Qualified Code(s): J45.22 - Mild intermittent asthma with status asthmaticus - AMA Did Patient Leave Against Medical Advice: No
[2019-05-29 09:03] VITALS: BP 131/80; PULSE 64; TEMP 97.5
[2019-05-30] MEDS ORDERED: chlordiazePOXIDE HCL 10 MG CAPSULE PO ONE (05:00)
== END 2019-05-29 09:11 | disposition home or self-care (01) | DRG 775 ==
LOC: YASAS 09:00 → Y6N 10:03
PROVIDERS: ADMIT Surgery; ATTEND Surgery
PROC: HZ2ZZZZ Detoxification Services for Substance Abuse Treatment (ICD-10-PCS; principal; 2019-05-25)
DX: F10.230 Alcohol dependence with withdrawal, uncomplicated (principal); F10.220 Alcohol dependence with intoxication, uncomplicated; F17.210 Nicotine dependence, cigarettes, uncomplicated; F20.9 Schizophrenia, unspecified; J45.22 Mild intermittent asthma with status asthmaticus; I10 Essential (primary) hypertension; E86.0 Dehydration; E87.6 Hypokalemia; R73.9 Hyperglycemia, unspecified; R63.4 Abnormal weight loss; Z68.25 Body mass index [BMI] 25.0-25.9, adult; M20.009 Unspecified deformity of unspecified finger(s)
CPT/HCPCS: 36415; 80053; 81003; 82947; 84132; 85027; 86593; 87389

== ENCOUNTER 2019-08-17 19:15 | Inpatient (IN) | payer OTHER ==
[2019-08-17 19:35] VITALS: BMI 24.7
--- NOTE | 2019-08-17 20:24 | HP ---
CIWA Score Nausea/Vomitin Muscle Tremors: 4-Moderate,w/Arms Extend Anxiety: 3 Agitation: 2 Paroxysmal Sweats: 2 Orientation: 0-Oriented Tacttile Disturbances: 2-Mild Itch/Numbness/Burn Auditory Disturbances: 2-Mild Harshness/Frighten Visual Disturbances: 1-Very Mild Sensitivity Headache: 1-Very Mild CIWA-Ar Total Score: 20 - Admission Criteria OASAS Guidelines: Admission for Medically Managed Detox: Requires at least one of the followin. CIWA greater than 12 2. Seizures within the past 24 hours 3. Delirium tremens within the past 24 hours 4. Hallucinations within the past 24 hours 5. Acute intervention needed for co occurring medical disorder 6. Acute intervention needed for co occurring psychiatric disorder 7. Severe withdrawal that cannot be handled at a lower level of care (continued vomiting, continued diarrhea, abnormal vital signs) requiring intravenous medication and/or fluids 8. Admitting History and Physical - Smoking History Smoking history: Current every day smoker Have you smoked in the past 12 months: Yes Aproximately how many cigarettes per day: 10 - Alcohol/Substance Use Hx Alcohol Use: Yes Admission ROS [facility] - HPI Chief Complaint: DEPENDENT ON ETOH AND COCAINE Allergies/Adverse Reactions: Allergies Allergy/AdvReac Type Severity Reaction Status Date / Time No Known Allergies Allergy Verified 08/17/19 19:32 History of Present Illness: THE PT. IS REQUESTING ADMISSION TO THE DETOX UNIT AND CAME FOR MEDICAL CLEARANCE Exam Limitations: No Limitations - Ebola screening Have you traveled outside of the country in the last 21 days: No (N) Have you had contact with anyone from an Ebola affected area: No Have you been sick,other than usual withdrawal symptoms: No Do you have a fever: No - Review of Systems Constitutional: See HPI, Malaise, Weakness EENT: reports: See HPI Respiratory: reports: See HPI Cardiac: reports: See HPI GI: reports: See HPI, Nausea, Vomiting, Abdominal cramping : reports: No Symptoms Reported, See HPI Musculoskeletal: reports: See HPI, Muscle Pain, Muscle Weakness Integumentary: reports: See HPI, Flushing, Sweating Neuro: reports: See HPI, Headache, Tremors, Weakness Endocrine: reports: See HPI Hematology: reports: See HPI Psychiatric: reports: Judgement Intact, Orientated x3, Anxious, Depressed Patient History - Patient Medical History Hx Anemia: No Hx Asthma: Yes (childhood asthma,no med now) Hx Chronic Obstructive Pulmonary Disease (COPD): No Hx Cancer: No Hx Cardiac Disorders: No Hx Congestive Heart Failure: No Hx Hypertension: No Hx Hypercholesterolemia: No Hx Pacemaker: No HX Cerebrovascular Accident: No Hx Seizures: No Hx Dementia: No Hx Diabetes: No Hx Gastrointestinal Disorders: No Hx Liver Disease: No Hx Genitourinary Disorders: No Hx Sexually Transmitted Disorders: No Hx Renal Disease (ESRD): No Hx Thyroid Disease: No Hx Human Immunodeficiency Virus (HIV): No (negative LAST 2017) Hx Hepatitis C: No (negative) Hx Depression: No Hx Suicide Attempt: No Hx Bipolar Disorder: No Hx Schizophrenia: Yes (no med,do not want to see psychiatrist) - Patient Surgical History Past Surgical History: No Hx Neurologic Surgery: No Hx Cataract Extraction: No Hx Cardiac Surgery: No Hx Lung Surgery: No Hx Breast Surgery: No Hx Breast Biopsy: No Hx Abdominal Surgery: No Hx Appendectomy: No Hx Cholecystectomy: No Hx Genitourinary Surgery: No Hx Section: No Hx Orthopedic Surgery: No Anesthesia Reaction: No - PPD History Date: 09/24/18 Results: o mm - Smoking Cessation Smoking history: Current every day smoker Have you smoked in the past 12 months: Yes Aproximately how many cigarettes per day: 10 Cigars Per Day: 0 Hx Chewing Tobacco Use: No Initiated information on smoking cessation: Yes 'Breaking Loose' booklet given: 08/17/19 - Substance & Tx. History Hx Alcohol Use: Yes Hx Substance Use: Yes Substance Use Type: Alcohol, Cocaine Hx Substance Use Treatment: Yes - Substances abused Alcohol Substance route: Oral Frequency: Daily Amount used: 2 pints of vodka Age of first use: 27 Date of last use: 05/25/19 Admission Physical Exam [facility] - Vital Signs Vital Signs: Vital Signs - 24 hr 08/17/19 19:33 Temperature 98.3 F Pulse Rate 105 H Respiratory 18 Rate Blood Pressure 150/88 - Physical General Appearance: Yes: No Apparent Distress, Nourished, Appropriately Dressed , Alcohol on Breath, Tremorous, Sweating, Anxious HEENTM: Yes: Hearing grossly Normal, Normocephalic, Normal Voice, SELENA, Pharynx Normal Respiratory: Yes: Chest Non-Tender, Lungs Clear, Normal Breath Sounds, No Respiratory Distress, No Accessory Muscle Use Neck: Yes: No masses,lesions,Nodules, Supple, Trachea in good position Breast: Yes: Breast Exam Deferred, Axillae without masses Cardiology: Yes: Regular Rhythm, S1, S2, Tachycardia Abdominal: Yes: Normal Bowel Sounds, Non Tender, Soft, Protuberent Back: Yes: Normal Inspection Musculoskeletal: Yes: full range of Motion, Gait Steady, Pelvis Stable, Muscle Pain, Muscle weakness Extremities: Yes: Normal Capillary Refill, Normal Range of Motion, Non-Tender, Tremors 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 intact, Fully Oriented, Alert, Motor Strength 5/5, Normal Response, Depressed Affect Integumentary: Yes: Warm, Moist Lymphatic: Yes: Within Normal Limits - Diagnostic (1) Schizophrenia Current Visit: Yes Status: Chronic Qualifiers: Schizophrenia type: unspecified Qualified Code(s): F20.9 - Schizophrenia, unspecified (2) Alcohol dependence with uncomplicated withdrawal Current Visit: No Status: Chronic (3) Cocaine dependence Current Visit: No Status: Chronic Qualifiers: Substance use status: uncomplicated (4) Nicotine dependence Current Visit: No Status: Chronic Qualifiers: Nicotine product type: cigarettes Substance use status: uncomplicated Qualified Code(s): F17.210 - Nicotine dependence, cigarettes, uncomplicated Cleared for Admission S - Detox or Rehab [facility] Level of Care: Medically Supervised Detox Regimen/Protocol: Valium Breathalyzer - Breathalyzer Breathalyzer: 0.289 Urine Drug Screen - Test Device Lot number: [id number] Expiration date: 04/24/21 - Control Is test valid?: Yes - Results Drug screen NEGATIVE: No Urine drug screen results: THC-Marijuana, SNOW-Cocaine Inpatient Rehab Admission - Rehab Decision to Admit Inpatient rehab admission?: No
[2019-08-17] MEDS ORDERED: hydrOXYzine PAMOATE 25 MG CAPSULE (FP) PO PRN (20:25)
[2019-08-17] MEDS ORDERED: METHOCARBAMOL 500 MG TABLET PO PRN (20:25)
[2019-08-17] MEDS ORDERED: MAGNESIUM HYDROX 2400MG/30ML ORAL SUSPENSION 30 ML CUP PO PRN (20:25)
[2019-08-17] MEDS ORDERED: IBUPROFEN 400 MG TABLET (FP) PO PRN (20:25)
[2019-08-17] MEDS ORDERED: MENTHOL/PHENOL 1 EACH UD MM PRN (20:25)
[2019-08-17] MEDS ORDERED: MAGNESIUM CITRATE 300 ML BOTTLE PO PRN (20:25)
[2019-08-17] MEDS ORDERED: MAG HYDROX/AL HYDROX/SIMETH 30 ML UNIT-DOSE CUP PO PRN (20:25)
[2019-08-17] MEDS ORDERED: diazePAM 5 MG TABLET PO PRN (20:25)
[2019-08-17] MEDS ORDERED: MELATONIN 5 MG TABLETS PO PRN (20:25)
[2019-08-17] MEDS ORDERED: NICOTINE POLACRILEX 2 MG GUM BUC PRN (20:25)
[2019-08-17] MEDS ORDERED: diazePAM 5 MG TABLET PO ONE (20:25)
[2019-08-17] MEDS ORDERED: ACETAMINOPHEN 325 MG TABLET (FP) PO PRN ×2 (20:25)
[2019-08-17] MEDS ORDERED: BISMUTH SUBSALICYLATE 524 MG/30 ML UD PO PRN (20:25)
[2019-08-17] MEDS: THIAMINE HCL 100 MG TABLET (FP) PO SCH (22:15)
[2019-08-17] MEDS: diazePAM 5 MG TABLET PO SCH (22:18)
[2019-08-18] MEDS: diazePAM 5 MG TABLET PO SCH ×3 (06:14→22:04)
[2019-08-18] MEDS: PRENATAL VITAMINS W/ FOLIC ACID TABLET (FP) PO SCH (10:14)
[2019-08-18] MEDS: NICOTINE 14 MG/24 HOURS TOPICAL PATCH TD SCH (10:14)
[2019-08-18] MEDS ORDERED: FLU VACCINE QUAD 60 MCG/0.5 ML (MDV 19-20) IM ONE (12:00)
[2019-08-18 12:14] LABS: HEMATOCRIT 39.4 % (35.4-49); HEMOGLOBIN 13.2 GM/dL (11.7-16.9); MCH 29.9 pg (25.7-33.7); MCHC 33.5 g/dl (32.0-35.9); MEAN CELL VOLUME 89.5 fl (80-96); MEAN PLT VOLUME 10.8 fl (7.5-11.1); PLATELET COUNT 114 K/MM3 (134-434); RBC 4.41 M/mm3 (4.00-5.60); RDW 14.7 % (11.9-15.9)
--- NOTE | 2019-08-18 12:17 | PN ---
S CIWA - CIWA Score Nausea/Vomitin-Mild Nausea/No Vomiting Muscle Tremors: 4-Moderate,w/Arms Extend Anxiety: 4-Mod. Anxious/Guarded Agitation: 3 Paroxysmal Sweats: 3 Orientation: 0-Oriented Tacttile Disturbances: 0-None Auditory Disturbances: 0-None Visual Disturbances: 0-None Headache: 0-None Present CIWA-Ar Total Score: 15 [facility] Progress Note (SOAP) Subjective: Diarrhea, sweating Objective: 08/18/19 12:16 Last Vital Signs Temp Pulse Resp BP Pulse Ox 97.9 F 79 20 126/95 08/18/19 09:23 08/18/19 09:23 08/18/19 09:23 08/18/19 09:23 Elevated b/p noted: 126/95 Laboratory Tests 08/18/19 07:35 WBC 5.0 RBC 4.41 Hgb 13.2 Hct 39.4 MCV 89.5 MCH 29.9 MCHC 33.5 RDW 14.7 Plt Count 114 L D MPV 10.8 D Labs reviewed (CBC): plt 114; CMP and RPR result pending Assessment: 08/18/19 12:19 Withdrawal sxs Noted with elevated blood pressure and thrombocytopenia Plan: Continue detox Encouraged PO water intake Elevated b/p: denies htn, most likely r/t withdrawal, monitor b/p Thrombocytopenia: asymptomatic, most likley r/t chronic alcoholism, encouraged abstinence, follow up with PCP for monitoring Follow up on pending lab results (CMP, RPR)
[2019-08-18 12:28] LABS: ALBUMIN 3.8 g/dl (3.4-5.0); BILIRUBIN,TOTAL 0.5 mg/dL (0.2-1); BLOOD UREA NITROGEN 12.2 mg/dL (7-18); CALCIUM 8.6 mg/dL (8.5-10.1); CREATININE 0.7 mg/dL (0.55-1.3); POTASSIUM 3.4 mmol/L (3.5-5.1); TOT PROT 6.3 g/dl (6.4-8.2)
--- NOTE | 2019-08-18 13:52 | CONSULT ---
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 This is one of multiiple admissions for patient. Patient admitted to for alcohol dependence. Substance Abuse History: Smoking Cessation. Smoking history: Current every day smoker. Have you smoked in the past 12 months: Yes. Aproximately how many cigarettes per day: 10. Cigars Per Day: 0. Hx Chewing Tobacco Use: No. Initiated information on smoking cessation: Yes. 'Breaking Loose' booklet given : 08/17/19. - Substance & Tx. History. Hx Alcohol Use: Yes. Hx Substance Use : Yes. Substance Use Type: Alcohol, Cocaine. Hx Substance Use Treatment: Yes. - Substances abused. Alcohol. Substance route: Oral. Frequency: Daily. Amount used: 2 pints of vodka. Age of first use: 27. Date of last use: Medical History: history of childhood asthma Psychiatric History: Patient denies history of psychiatric hospitalizations, outpatient care, and suicide attempt. At present patient reports stable mood but is experiencing difficulty sleeping. Physical/Sexual Abuse/Trauma History: denies. Mental Status Exam - Mental Status Exam Alert and Oriented to: Time, Place, Person Cognitive Function: Good Patient Appearance: Well Groomed Mood: Euthymic Affect: Mood Congruent Patient Behavior: Appropriate, Cooperative Speech Pattern: Clear, Appropriate Voice Loudness: Normal Thought Process: Intact, Goal Oriented Thought Disorder: Not Present Hallucinations: Denies Suicidal Ideation: Denies Homicidal Ideation: Denies Insight/Judgement: Poor Sleep: Poorly Appetite: Fair Muscle strength/Tone: Normal Gait/Station: Normal Psychiatric Findings - Problem List ([place] 1, 2,3) (1) Alcohol use disorder Current Visit: Yes Status: Acute (2) Cannabis dependence Current Visit: No Status: Chronic (3) Cocaine dependence Current Visit: No Status: Chronic Qualifiers: Substance use status: uncomplicated Qualified Code(s): F14.20 - Cocaine dependence, uncomplicated (4) Substance-induced sleep disorder Current Visit: Yes Status: Acute - Initial Treatment Plan Initial Treatment Plan: Psychoeducation provided. Rehab in progress. Will order Belsomra 10mg HS. Benefits and side effects discussed. Verbal consent given.
[2019-08-18] MEDS ORDERED: SUVOREXANT 10 MG TABLET PO PRN (22:00)
[2019-08-18] MEDS: THIAMINE HCL 100 MG TABLET (FP) PO SCH (22:04)
[2019-08-19] MEDS: diazePAM 5 MG TABLET PO SCH ×2 (06:15→17:35)
--- NOTE | 2019-08-19 09:21 | PN ---
S CIWA - CIWA Score Nausea/Vomitin Muscle Tremors: 2 Anxiety: 2 Agitation: 2 Paroxysmal Sweats: No Perspiration Orientation: 0-Oriented Tacttile Disturbances: 1-Very Mild Itch/Numbness Auditory Disturbances: 0-None Visual Disturbances: 0-None Headache: 2-Mild CIWA-Ar Total Score: 11 S Progress Note (SOAP) Subjective: alert,irritable,anxious,interrupted sleep,tremor Objective: 08/19/19 09:20 Vital Signs Temperature 96.8 F L 08/19/19 09:04 Pulse Rate 79 08/19/19 09:04 Respiratory Rate 18 08/19/19 09:04 Blood Pressure 123/79 08/19/19 09:04 O2 Sat by Pulse Oximetry (%) 08/19/19 09:20 Laboratory Last Values WBC 5.0 K/mm3 (4.0-10.0) 08/18/19 07:35 RBC 4.41 M/mm3 (4.00-5.60) 08/18/19 07:35 Hgb 13.2 GM/dL (11.7-16.9) 08/18/19 07:35 Hct 39.4 % (35.4-49) 08/18/19 07:35 MCV 89.5 fl (80-96) 08/18/19 07:35 MCH 29.9 pg (25.7-33.7) 08/18/19 07:35 MCHC 33.5 g/dl (32.0-35.9) 08/18/19 07:35 RDW 14.7 % (11.9-15.9) 08/18/19 07:35 Plt Count 114 K/MM3 (134-434) L D 08/18/19 07:35 MPV 10.8 fl (7.5-11.1) D 08/18/19 07:35 Sodium 138 mmol/L (136-145) 08/18/19 07:35 Potassium 3.4 mmol/L (3.5-5.1) L 08/18/19 07:35 Chloride 104 mmol/L (98-107) 08/18/19 07:35 Carbon Dioxide 29 mmol/L (21-32) 08/18/19 07:35 Anion Gap 5 MMOL/L (8-16) L 08/18/19 07:35 BUN 12.2 mg/dL (7-18) 08/18/19 07:35 Creatinine 0.7 mg/dL (0.55-1.3) 08/18/19 07:35 Est GFR (CKD-EPI)AfAm 128.43 08/18/19 07:35 Est GFR (CKD-EPI)NonAf 110.81 08/18/19 07:35 Random Glucose 156 mg/dL (74-106) H 08/18/19 07:35 Calcium 8.6 mg/dL (8.5-10.1) 08/18/19 07:35 Total Bilirubin 0.5 mg/dL (0.2-1) 08/18/19 07:35 AST 62 U/L (15-37) H 08/18/19 07:35 ALT 68 U/L (13-61) H 08/18/19 07:35 Alkaline Phosphatase 104 U/L (45-117) 08/18/19 07:35 Total Protein 6.3 g/dl (6.4-8.2) L 08/18/19 07:35 Albumin 3.8 g/dl (3.4-5.0) 08/18/19 07:35 RPR Titer Nonreactive (NONREACTIVE) 08/18/19 07:35 Assessment: 08/19/19 09:21 withdrawal symptom Plan: continue detox valium regimen,initial glucose 156,ast 62,alt68,fasting glucose in am
[2019-08-19] MEDS: NICOTINE 14 MG/24 HOURS TOPICAL PATCH TD SCH (10:07)
[2019-08-19] MEDS: PRENATAL VITAMINS W/ FOLIC ACID TABLET (FP) PO SCH (10:08)
[2019-08-19] MEDS: THIAMINE HCL 100 MG TABLET (FP) PO SCH (22:56)
[2019-08-20] MEDS ORDERED: diazePAM 5 MG TABLET PO ONE (06:00)
--- NOTE | 2019-08-20 08:34 | DS ---
[facility] Detox Discharge Summary Admission Date: 08/17/19 - History Present History: Alcohol Dependence, Cocaine Dependence - Physical Exam Results Vital Signs: Vital Signs Temperature 97.3 F L 08/20/19 06:00 Pulse Rate 53 L 08/20/19 06:00 Respiratory Rate 18 08/20/19 06:00 Blood Pressure 138/86 08/20/19 06:00 O2 Sat by Pulse Oximetry (%) Pertinent Admission Physical Exam Findings: pt arrived in withdrawals Vital Signs Temperature 97.3 F L 08/20/19 06:00 Pulse Rate 53 L 08/20/19 06:00 Respiratory Rate 18 08/20/19 06:00 Blood Pressure 138/86 08/20/19 06:00 O2 Sat by Pulse Oximetry (%) Laboratory Tests 08/18/19 08/18/19 08/18/19 07:35 07:35 07:35 WBC 5.0 RBC 4.41 Hgb 13.2 Hct 39.4 MCV 89.5 MCH 29.9 MCHC 33.5 RDW 14.7 Plt Count 114 L D MPV 10.8 D Sodium 138 Potassium 3.4 L Chloride 104 Carbon Dioxide 29 Anion Gap 5 L BUN 12.2 Creatinine 0.7 Est GFR (CKD-EPI)AfAm 128.43 Est GFR (CKD-EPI)NonAf 110.81 POC Glucometer Random Glucose 156 H Calcium 8.6 Total Bilirubin 0.5 AST 62 H ALT 68 H Alkaline Phosphatase 104 Total Protein 6.3 L Albumin 3.8 RPR Titer Nonreactive 08/19/19 16:38 WBC RBC Hgb Hct MCV MCH MCHC RDW Plt Count MPV Sodium Potassium Chloride Carbon Dioxide Anion Gap BUN Creatinine Est GFR (CKD-EPI)AfAm Est GFR (CKD-EPI)NonAf POC Glucometer 119 Random Glucose Calcium Total Bilirubin AST ALT Alkaline Phosphatase Total Protein Albumin RPR Titer pt is aaox3 ambulating no acute distress no s/s of withdrawals - Treatment Hospital Course: Detox Protocol Followed, Detoxed Safely, Responded well, Discharged Condition Good, Rehab Referral Accepted Patient has Accepted a Rehab Referral to: pt declined; referral provided - Medication Discharge Medications: Ambulatory Orders NK [No Known Home Medication] 05/25/19 - Diagnosis (1) Substance-induced sleep disorder Current Visit: Yes Status: Acute (2) Schizophrenia Current Visit: Yes Status: Chronic Qualifiers: Schizophrenia type: unspecified Qualified Code(s): F20.9 - Schizophrenia, unspecified (3) Alcohol-induced mood disorder Current Visit: No Status: Acute (4) Alcohol-induced sleep disorder Current Visit: No Status: Acute (5) Deformity of finger Current Visit: No Status: Acute (6) Elevated aspartate aminotransferase level Current Visit: No Status: Acute (7) Syncope Current Visit: No Status: Acute Qualifiers: Syncope type: unspecified Qualified Code(s): R55 - Syncope and collapse (8) Weight loss Current Visit: No Status: Acute (9) Alcohol dependence with uncomplicated withdrawal Current Visit: Yes Status: Chronic (10) Asthma Current Visit: Yes Status: Chronic Qualifiers: Asthma severity: mild Asthma persistence: intermittent Asthma complication type: with status asthmaticus Qualified Code(s): J45.22 - Mild intermittent asthma with status asthmaticus (11) Cannabis dependence Current Visit: Yes Status: Chronic (12) Cocaine dependence Current Visit: Yes Status: Chronic Qualifiers: Substance use status: uncomplicated Qualified Code(s): F14.20 - Cocaine dependence, uncomplicated (13) Nicotine dependence Current Visit: Yes Status: Chronic Qualifiers: Nicotine product type: cigarettes Substance use status: uncomplicated Qualified Code(s): F17.210 - Nicotine dependence, cigarettes, uncomplicated - AMA Did Patient Leave Against Medical Advice: No
[2019-08-20 09:09] VITALS: BP 129/79; PULSE 79; TEMP 97.4
== END 2019-08-20 09:22 | disposition home or self-care (01) | DRG 774 ==
LOC: YASAS 19:15 → Y6N 20:32
PROVIDERS: ADMIT Allergy & Immunology; ATTEND Allergy & Immunology
PROC: HZ2ZZZZ Detoxification Services for Substance Abuse Treatment (ICD-10-PCS; principal; 2019-08-17)
DX: F10.230 Alcohol dependence with withdrawal, uncomplicated (principal); F14.20 Cocaine dependence, uncomplicated; F12.20 Cannabis dependence, uncomplicated; F17.210 Nicotine dependence, cigarettes, uncomplicated; F10.282 Alcohol dependence with alcohol-induced sleep disorder; F10.24 Alcohol dependence with alcohol-induced mood disorder; F19.282 Other psychoactive substance dependence with psychoactive substance-induced sleep disorder; J20.9 Acute bronchitis, unspecified; M20.009 Unspecified deformity of unspecified finger(s); R74.0 Nonspecific elevation of levels of transaminase and lactic acid dehydrogenase [LDH]; R63.4 Abnormal weight loss; Z68.24 Body mass index [BMI] 24.0-24.9, adult
CPT/HCPCS: 36415; 80053; 82962; 85027; 86593; Q2036

== ENCOUNTER 2019-09-13 09:46 | Inpatient (IN) | payer OTHER ==
[2019-09-13 10:32] VITALS: BMI 26.1
--- NOTE | 2019-09-13 12:22 | HP ---
CIWA Score Nausea/Vomitin Muscle Tremors: 2 Anxiety: 3 Agitation: 3 Paroxysmal Sweats: 1-Minimal Palms Moist Orientation: 0-Oriented Tacttile Disturbances: 1-Very Mild Itch/Numbness Auditory Disturbances: 0-None Visual Disturbances: 0-None Headache: 2-Mild CIWA-Ar Total Score: 14 - Admission Criteria OASAS Guidelines: Admission for Medically Managed Detox: Requires at least one of the followin. CIWA greater than 12 2. Seizures within the past 24 hours 3. Delirium tremens within the past 24 hours 4. Hallucinations within the past 24 hours 5. Acute intervention needed for co occurring medical disorder 6. Acute intervention needed for co occurring psychiatric disorder 7. Severe withdrawal that cannot be handled at a lower level of care (continued vomiting, continued diarrhea, abnormal vital signs) requiring intravenous medication and/or fluids 8. Admitting History and Physical - Admission Chief Complaint: i need help to stop drinking alcohol and marijuana History of Present Illness: this 49 years old male with alcohol and marijuana dependence,seeking detox, withdrawal symptom, multiple admissions in detox but keep relapsing,last detox [facility] 08/17/19 to 08/20 nicotine dependence 1/2 pack/day denies seizure syncope alcohol related longest sobriety 1 year History Source: Patient Limitations to Obtaining History: No Limitations - Smoking History Smoking history: Current every day smoker Have you smoked in the past 12 months: Yes Aproximately how many cigarettes per day: 10 - Alcohol/Substance Use Hx Alcohol Use: Yes History of Substance Use: reports: Marijuana - Social History Usual Living Arrangement: Yes: Alone ADL: Support Services Occupation: un employed History of Recent Travel: No Other Social History: this 49 years old male with alcohol dependence and marijuana abused,. smoke 1/2 pack/day,unemployed,living alone,need inpatient detox from alcohol Admission [facility] Chief Complaint: i need help to stop drinking alcohol,marijuana abused Allergies/Adverse Reactions: Allergies Allergy/AdvReac Type Severity Reaction Status Date / Time No Known Allergies Allergy Verified 09/13/19 10:26 History of Present Illness: this 49 years old male with alcohol and marijuana abused,seeking detox,last admission 08/17/19 to 08/20/19 [facility] syncope denied seizure nicotine dependence 1/2 pck/day weight loss longest sobriety 1 year gil for outptient after detox 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 Loss EENT: reports: Nose Congestion Respiratory: reports: No Symptoms reported Cardiac: reports: No Symptoms Reported GI: reports: Nausea, Abdominal cramping : reports: No Symptoms Reported Musculoskeletal: reports: Back Pain, Muscle Pain Integumentary: reports: Dryness Neuro: reports: Headache, Tremors Endocrine: reports: No Symptoms Reported Hematology: reports: No Symptoms Reported Psychiatric: reports: No Sypmtoms Reported, Judgement Intact, Mood/Affect Appropiate, Orientated x3 Other Systems: Reviewed and Negative Patient History - Patient Medical History Hx Anemia: No Hx Asthma: No Hx Chronic Obstructive Pulmonary Disease (COPD): No Hx Cancer: No Hx Cardiac Disorders: No Hx Congestive Heart Failure: No Hx Hypertension: No Hx Hypercholesterolemia: No Hx Pacemaker: No HX Cerebrovascular Accident: No Hx Seizures: No Hx Dementia: No Hx Diabetes: No Hx Gastrointestinal Disorders: No Hx Liver Disease: No Hx Genitourinary Disorders: No Hx Sexually Transmitted Disorders: No Hx Renal Disease (ESRD): No Hx Thyroid Disease: No Hx Human Immunodeficiency Virus (HIV): No (negative LAST 2017) Hx Hepatitis C: No (negative) Hx Depression: No Hx Suicide Attempt: No Hx Bipolar Disorder: No Hx Schizophrenia: No Other Medical History: no suicidal,no homicidal - Patient Surgical History Past Surgical History: No Hx Neurologic Surgery: No Hx Cataract Extraction: No Hx Cardiac Surgery: No Hx Lung Surgery: No Hx Breast Surgery: No Hx Breast Biopsy: No Hx Abdominal Surgery: No Hx Appendectomy: No Hx Cholecystectomy: No Hx Genitourinary Surgery: No Hx Section: No Hx Orthopedic Surgery: No Anesthesia Reaction: No - PPD History Previous Implant?: Yes Documented Results: Negative w/proof Implanted On Prior [facility] Admission?: Yes Date: 08/19/19 Results: o mm PPD to be Administered?: No - Smoking Cessation Smoking history: Current every day smoker Have you smoked in the past 12 months: Yes Aproximately how many cigarettes per day: 10 Cigars Per Day: 0 Hx Chewing Tobacco Use: No Initiated information on smoking cessation: Yes 'Breaking Loose' booklet given: 09/13/19 - Substance & Tx. History Hx Alcohol Use: Yes Hx Substance Use: Yes Substance Use Type: Alcohol, Marijuana Hx Substance Use Treatment: Yes ([facility] 08/17/19 to 08/20/19) - Substances abused Alcohol Substance route: Oral Frequency: Daily Amount used: 2 pints of vodka Age of first use: 27 Date of last use: 09/13/19 Marijuana/Hashish Substance route: Smoking Frequency: 1-3 times last 30 days Amount used: 3$ Age of first use: 27 Date of last use: 08/29/19 Admission Physical Exam S - Vital Signs Vital Signs: Vital Signs - 24 hr 09/13/19 10:25 Temperature 98.8 F Pulse Rate 97 H Respiratory 18 Rate Blood Pressure 127/78 - Physical General Appearance: Yes: Moderate Distress, Tremorous, Irritable, Sweating, Anxious HEENTM: Yes: Normal ENT Inspection, SELENA, Pharynx Normal Respiratory: Yes: Lungs Clear, Normal Breath Sounds, No Respiratory Distress, Other (history of asthma) Neck: Yes: Within Normal Limits, Supple, Trachea in good position Breast: Yes: Within Normal Limits Cardiology: Yes: Within Normal Limits, Regular Rhythm, Regular Rate, S1, S2 Abdominal: Yes: Within Normal Limits, Normal Bowel Sounds, Non Tender, Flat, Soft Genitourinary: Yes: Within Normal Limits Back: Yes: Muscle Spasm Musculoskeletal: Yes: Back pain, Muscle Pain Extremities: Yes: Within Normal Limits, Normal Range of Motion, Tremors, Other ( congenital deformity of right little finger) 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: customs director II-XII NML intact, Fully Oriented, Alert, Motor Strength 5/5 Integumentary: Yes: Dry Lymphatic: Yes: Within Normal Limits - Diagnostic (1) Alcohol dependence with uncomplicated withdrawal Current Visit: No Status: Chronic (2) Deformity of finger Current Visit: No Status: Acute (3) Syncope Current Visit: No Status: Acute Qualifiers: Syncope type: unspecified Qualified Code(s): R55 - Syncope and collapse (4) Weight loss Current Visit: No Status: Acute (5) Asthma Current Visit: No Status: Chronic Qualifiers: Asthma severity: mild Asthma persistence: intermittent Asthma complication type: with status asthmaticus Qualified Code(s): J45.22 - Mild intermittent asthma with status asthmaticus (6) Cannabis dependence Current Visit: No Status: Chronic (7) Schizophrenia Current Visit: No Status: Chronic Qualifiers: Schizophrenia type: unspecified Qualified Code(s): F20.9 - Schizophrenia, unspecified (8) Nicotine dependence Current Visit: No Status: Chronic Qualifiers: Nicotine product type: cigarettes Substance use status: uncomplicated Qualified Code(s): F17.210 - Nicotine dependence, cigarettes, uncomplicated Cleared for Admission [facility] - Detox or Rehab S Level of Care: Medically Managed Detox Regimen/Protocol: Librium Breathalyzer - Breathalyzer Breathalyzer: 0.083 Urine Drug Screen - Test Device Lot number: [id number] Expiration date: 04/24/21 - Control Is test valid?: Yes - Results Drug screen NEGATIVE: No Urine drug screen results: THC-Marijuana, BZO-Benzodiazepines Inpatient Rehab Admission - Rehab Decision to Admit Inpatient rehab admission?: No
[2019-09-13] MEDS ORDERED: hydrOXYzine PAMOATE 25 MG CAPSULE (FP) PO PRN (12:35)
[2019-09-13] MEDS ORDERED: MAGNESIUM CITRATE 300 ML BOTTLE PO PRN (12:35)
[2019-09-13] MEDS ORDERED: MENTHOL/PHENOL 1 EACH UD MM PRN (12:35)
[2019-09-13] MEDS ORDERED: BISMUTH SUBSALICYLATE 262 MG/15 ML BTL PO PRN (12:35)
[2019-09-13] MEDS ORDERED: METHOCARBAMOL 500 MG TABLET PO PRN (12:35)
[2019-09-13] MEDS ORDERED: ACETAMINOPHEN 325 MG TABLET (FP) PO PRN ×2 (12:35)
[2019-09-13] MEDS ORDERED: chlordiazePOXIDE HCL 25 MG CAPSULE PO PRN (12:35)
[2019-09-13] MEDS ORDERED: NICOTINE POLACRILEX 2 MG GUM BUC PRN (12:35)
[2019-09-13] MEDS ORDERED: IBUPROFEN 400 MG TABLET (FP) PO PRN (12:35)
[2019-09-13] MEDS ORDERED: MAGNESIUM HYDROX 2400MG/30ML ORAL SUSPENSION 30 ML CUP PO PRN (12:35)
[2019-09-13] MEDS ORDERED: ALBUTEROL SO4 8 GM HFA INHALER IH PRN (12:38)
[2019-09-13] MEDS: NICOTINE 21 MG/24 HOURS TOPICAL PATCH TD SCH (14:10)
[2019-09-13 15:41] LABS: HEMATOCRIT 39.2 % (35.4-49); HEMOGLOBIN 12.8 GM/dL (11.7-16.9); MCH 29.5 pg (25.7-33.7); MCHC 32.6 g/dl (32.0-35.9); MEAN CELL VOLUME 90.6 fl (80-96); MEAN PLT VOLUME 9.8 fl (7.5-11.1); PLATELET COUNT 225 K/MM3 (134-434); RBC 4.33 M/mm3 (4.00-5.60); RDW 14.7 % (11.9-15.9); WHITE BLOOD COUNT 5.2 K/mm3 (4.0-10.0)
[2019-09-13 16:25] LABS: ALBUMIN 3.9 g/dl (3.4-5.0); BILIRUBIN,TOTAL 0.2 mg/dL (0.2-1); BLOOD UREA NITROGEN 19.5 mg/dL (7-18); CALCIUM 8.7 mg/dL (8.5-10.1); CREATININE 0.8 mg/dL (0.55-1.3); POTASSIUM 3.7 mmol/L (3.5-5.1); TOT PROT 7.1 g/dl (6.4-8.2)
[2019-09-13] MEDS: chlordiazePOXIDE HCL 25 MG CAPSULE PO SCH ×2 (16:32→22:11)
[2019-09-13] MEDS: MELATONIN 5 MG TABLETS PO PRN (22:12)
[2019-09-13] MEDS: THIAMINE HCL 100 MG TABLET (FP) PO SCH (22:12)
[2019-09-14] MEDS: chlordiazePOXIDE HCL 25 MG CAPSULE PO SCH ×4 (05:32→22:02)
[2019-09-14] MEDS: NICOTINE 21 MG/24 HOURS TOPICAL PATCH TD SCH (10:29)
[2019-09-14] MEDS: PRENATAL VITAMINS W/ FOLIC ACID TABLET (FP) PO SCH (10:29)
[2019-09-14] MEDS: MAG HYDROX/AL HYDROX/SIMETH 30 ML UNIT-DOSE CUP PO PRN (10:31)
--- NOTE | 2019-09-14 11:37 | PN ---
[facility] CIWA - CIWA Score Nausea/Vomitin-No Nausea/No Vomiting Muscle Tremors: 2 Anxiety: 3 Agitation: 1-Slight > Activity Paroxysmal Sweats: 3 Orientation: 0-Oriented Tacttile Disturbances: 0-None Auditory Disturbances: 0-None Visual Disturbances: 0-None Headache: 2-Mild CIWA-Ar Total Score: 11 S Progress Note (SOAP) Subjective: c/o sweats, anxiety, headache, and irritability. Objective: 09/14/19 11:33 Vital Signs 09/14/19 09/14/19 06:34 09:23 Temperature 97.2 F L 98.1 F Pulse Rate 56 L 80 Respiratory 18 17 Rate Blood Pressure 128/80 129/99 Laboratory Last Values WBC 5.2 K/mm3 (4.0-10.0) 09/13/19 12:35 RBC 4.33 M/mm3 (4.00-5.60) 09/13/19 12:35 Hgb 12.8 GM/dL (11.7-16.9) 09/13/19 12:35 Hct 39.2 % (35.4-49) 09/13/19 12:35 MCV 90.6 fl (80-96) 09/13/19 12:35 MCH 29.5 pg (25.7-33.7) 09/13/19 12:35 MCHC 32.6 g/dl (32.0-35.9) 09/13/19 12:35 RDW 14.7 % (11.9-15.9) 09/13/19 12:35 Plt Count 225 K/MM3 (134-434) D 09/13/19 12:35 MPV 9.8 fl (7.5-11.1) 09/13/19 12:35 Sodium 140 mmol/L (136-145) 09/13/19 12:35 Potassium 3.7 mmol/L (3.5-5.1) 09/13/19 12:35 Chloride 108 mmol/L (98-107) H 09/13/19 12:35 Carbon Dioxide 21 mmol/L (21-32) 09/13/19 12:35 Anion Gap 12 MMOL/L (8-16) 09/13/19 12:35 BUN 19.5 mg/dL (7-18) H 09/13/19 12:35 Creatinine 0.8 mg/dL (0.55-1.3) 09/13/19 12:35 Est GFR (CKD-EPI)AfAm 121.57 09/13/19 12:35 Est GFR (CKD-EPI)NonAf 104.89 09/13/19 12:35 Random Glucose 99 mg/dL (74-106) 09/13/19 12:35 Calcium 8.7 mg/dL (8.5-10.1) 09/13/19 12:35 Total Bilirubin 0.2 mg/dL (0.2-1) 09/13/19 12:35 AST 36 U/L (15-37) 09/13/19 12:35 ALT 47 U/L (13-61) 09/13/19 12:35 Alkaline Phosphatase 105 U/L (45-117) 09/13/19 12:35 Total Protein 7.1 g/dl (6.4-8.2) 09/13/19 12:35 Albumin 3.9 g/dl (3.4-5.0) 09/13/19 12:35 Labs noted. Assessment: 09/14/19 11:36 AOX3, in no respiratory distress. Full ROM, ambulating in the unit. Withdrawal symptoms. Plan: continue detox.
--- NOTE | 2019-09-14 14:37 | CONSULT ---
[facility] Psychiatric Consult - Data Date of interview: 09/14/19 Admission source: [facility] Identifying data: Readmission to [facility] for this 49 y/o male self- referred for detoxification. ELIER issues : alcohol nicotine. Examined at [address] [place] [address]. Patient is single, father of three, domiciled, unemployed and supported on welfare. Substance Abuse History: Discussed with the patient. Details in current [facility] report as follows : Smoking history: Current every day smoker. Have you smoked in the past 12 months: Yes. Aproximately how many cigarettes per day: 10. Cigars Per Day: 0. Hx Chewing Tobacco Use: No. Initiated information on smoking cessation: Yes. 'Breaking Loose' booklet given: 09/13/19. - Substance & Tx. History. Hx Alcohol Use: Yes. Hx Substance Use: Yes. Substance Use Type : Alcohol, Marijuana. Hx Substance Use Treatment: Yes ([facility] 08/17/19 to 08/20/19 ). - Substances abused. Alcohol. Substance route: Oral. Frequency: Daily. Amount used: 2 pints of vodka. Age of first use: 27. Date of last use : 09/13/19. Marijuana/Hashish. Substance route: Smoking. Frequency: 1-3 times last 30 days. Amount used: 3$. Age of first use: 27. Date of last use: 08/29/19 Medical History: Patient endorses good general health. Psychiatric History: patient denies history of psychiatric hospitalizations, OPD care or suicide attempts. Physical/Sexual Abuse/Trauma History: Patient declines to discuss this domain. Additional Comment: Urine drug screen results: THC-Marijuana, BZO- Benzodiazepines. Noted. Mental Status Exam - Mental Status Exam Alert and Oriented to: Time, Place, Person Cognitive Function: Good Patient Appearance: Well Groomed (tattoos on both upper extremities) Mood: Hopeful, Euthymic Affect: Appropriate, Normal Range Patient Behavior: Appropriate, Cooperative Speech Pattern: Clear Voice Loudness: Normal Thought Process: Intact, Goal Oriented Thought Disorder: Not Present Hallucinations: Denies Suicidal Ideation: Denies Homicidal Ideation: Denies Insight/Judgement: Fair Sleep: Fair Appetite: Good Muscle strength/Tone: Normal Gait/Station: Normal Psychiatric Findings - Problem List ([place] 1, 2,3) (1) Alcohol dependence with uncomplicated withdrawal Current Visit: Yes Status: Acute (2) Cannabis dependence Current Visit: Yes Status: Chronic (3) Nicotine dependence Current Visit: Yes Status: Chronic Qualifiers: Nicotine product type: cigarettes Substance use status: uncomplicated Qualified Code(s): F17.210 - Nicotine dependence, cigarettes, uncomplicated - Initial Treatment Plan Initial Treatment Plan: Psychoeducation. Sleep hygiene. Detoxification. Observation.
[2019-09-14] MEDS: THIAMINE HCL 100 MG TABLET (FP) PO SCH (22:02)
[2019-09-14] MEDS: MELATONIN 5 MG TABLETS PO PRN (22:02)
[2019-09-15] MEDS: chlordiazePOXIDE HCL 25 MG CAPSULE PO SCH ×4 (05:45→22:26)
[2019-09-15] MEDS: PRENATAL VITAMINS W/ FOLIC ACID TABLET (FP) PO SCH (10:09)
[2019-09-15] MEDS: NICOTINE 21 MG/24 HOURS TOPICAL PATCH TD SCH (10:09)
--- NOTE | 2019-09-15 11:24 | PN ---
S CIWA - CIWA Score Nausea/Vomitin-Mild Nausea/No Vomiting Muscle Tremors: 2 Anxiety: 2 Agitation: 1-Slight > Activity Paroxysmal Sweats: 1-Minimal Palms Moist Orientation: 0-Oriented Tacttile Disturbances: 1-Very Mild Itch/Numbness Auditory Disturbances: 0-None Visual Disturbances: 0-None Headache: 0-None Present CIWA-Ar Total Score: 8 [facility] Progress Note (SOAP) Subjective: 49 years old male admitted on 09/13/19 for alcohol withdrawal sx management treating with librium detox regimen trouble sleep at night restlessness Objective: 09/15/19 11:23 Vital Signs Temperature 96.2 F L 09/15/19 09:22 Pulse Rate 72 09/15/19 09:22 Respiratory Rate 18 09/15/19 09:22 Blood Pressure 128/90 09/15/19 09:22 O2 Sat by Pulse Oximetry (%) Laboratory Last Values WBC 5.2 K/mm3 (4.0-10.0) 09/13/19 12:35 RBC 4.33 M/mm3 (4.00-5.60) 09/13/19 12:35 Hgb 12.8 GM/dL (11.7-16.9) 09/13/19 12:35 Hct 39.2 % (35.4-49) 09/13/19 12:35 MCV 90.6 fl (80-96) 09/13/19 12:35 MCH 29.5 pg (25.7-33.7) 09/13/19 12:35 MCHC 32.6 g/dl (32.0-35.9) 09/13/19 12:35 RDW 14.7 % (11.9-15.9) 09/13/19 12:35 Plt Count 225 K/MM3 (134-434) D 09/13/19 12:35 MPV 9.8 fl (7.5-11.1) 09/13/19 12:35 Sodium 140 mmol/L (136-145) 09/13/19 12:35 Potassium 3.7 mmol/L (3.5-5.1) 09/13/19 12:35 Chloride 108 mmol/L (98-107) H 09/13/19 12:35 Carbon Dioxide 21 mmol/L (21-32) 09/13/19 12:35 Anion Gap 12 MMOL/L (8-16) 09/13/19 12:35 BUN 19.5 mg/dL (7-18) H 09/13/19 12:35 Creatinine 0.8 mg/dL (0.55-1.3) 09/13/19 12:35 Est GFR (CKD-EPI)AfAm 121.57 09/13/19 12:35 Est GFR (CKD-EPI)NonAf 104.89 09/13/19 12:35 Random Glucose 99 mg/dL (74-106) 09/13/19 12:35 Calcium 8.7 mg/dL (8.5-10.1) 09/13/19 12:35 Total Bilirubin 0.2 mg/dL (0.2-1) 09/13/19 12:35 AST 36 U/L (15-37) 09/13/19 12:35 ALT 47 U/L (13-61) 09/13/19 12:35 Alkaline Phosphatase 105 U/L (45-117) 09/13/19 12:35 Total Protein 7.1 g/dl (6.4-8.2) 09/13/19 12:35 Albumin 3.9 g/dl (3.4-5.0) 09/13/19 12:35 RPR Titer Nonreactive (NONREACTIVE) 09/13/19 12:35 HIV 1&2 Antibody Screen Negative 09/13/19 12:35 HIV P24 Antigen Negative 09/13/19 12:35 lab noted Assessment: 09/15/19 11:23 alcohol withdrawal Plan: librium regimen
[2019-09-15] MEDS: MAG HYDROX/AL HYDROX/SIMETH 30 ML UNIT-DOSE CUP PO PRN (15:47)
[2019-09-15] MEDS: THIAMINE HCL 100 MG TABLET (FP) PO SCH (22:26)
[2019-09-15] MEDS: MELATONIN 5 MG TABLETS PO PRN (22:26)
[2019-09-16] MEDS ORDERED: chlordiazePOXIDE HCL 10 MG CAPSULE PO PRN
[2019-09-16] MEDS: chlordiazePOXIDE HCL 10 MG CAPSULE PO SCH ×4 (05:44→22:03)
[2019-09-16] MEDS: PRENATAL VITAMINS W/ FOLIC ACID TABLET (FP) PO SCH (10:05)
[2019-09-16] MEDS: NICOTINE 21 MG/24 HOURS TOPICAL PATCH TD SCH (10:05)
--- NOTE | 2019-09-16 12:25 | PN ---
[facility] CIWA - CIWA Score Nausea/Vomitin-No Nausea/No Vomiting Muscle Tremors: 1-None Visible, but [place] Anxiety: 2 Agitation: 0-Normal Activity Paroxysmal Sweats: 1-Minimal Palms Moist Orientation: 0-Oriented Tacttile Disturbances: 0-None Auditory Disturbances: 0-None Visual Disturbances: 0-None Headache: 0-None Present CIWA-Ar Total Score: 4 S Progress Note (SOAP) Subjective: 49 years old male admitted on 09/13/19 for alcohol withdrawal sx management treating with librium detox regimen feeling better today less tremor mild anxiety prefers to leave the detox one day early as estimated discharge date of 09/18/19 case discuss with the nurse routine discharge is appropriated for tomorrow 09/17/19 Objective: 09/16/19 12:24 Vital Signs Temperature 96.7 F L 09/16/19 06:54 Pulse Rate 67 09/16/19 06:54 Respiratory Rate 18 09/16/19 06:54 Blood Pressure 116/77 09/16/19 06:54 O2 Sat by Pulse Oximetry (%) Laboratory Last Values WBC 5.2 K/mm3 (4.0-10.0) 09/13/19 12:35 RBC 4.33 M/mm3 (4.00-5.60) 09/13/19 12:35 Hgb 12.8 GM/dL (11.7-16.9) 09/13/19 12:35 Hct 39.2 % (35.4-49) 09/13/19 12:35 MCV 90.6 fl (80-96) 09/13/19 12:35 MCH 29.5 pg (25.7-33.7) 09/13/19 12:35 MCHC 32.6 g/dl (32.0-35.9) 09/13/19 12:35 RDW 14.7 % (11.9-15.9) 09/13/19 12:35 Plt Count 225 K/MM3 (134-434) D 09/13/19 12:35 MPV 9.8 fl (7.5-11.1) 09/13/19 12:35 Sodium 140 mmol/L (136-145) 09/13/19 12:35 Potassium 3.7 mmol/L (3.5-5.1) 09/13/19 12:35 Chloride 108 mmol/L (98-107) H 09/13/19 12:35 Carbon Dioxide 21 mmol/L (21-32) 09/13/19 12:35 Anion Gap 12 MMOL/L (8-16) 09/13/19 12:35 BUN 19.5 mg/dL (7-18) H 09/13/19 12:35 Creatinine 0.8 mg/dL (0.55-1.3) 09/13/19 12:35 Est GFR (CKD-EPI)AfAm 121.57 09/13/19 12:35 Est GFR (CKD-EPI)NonAf 104.89 09/13/19 12:35 Random Glucose 99 mg/dL (74-106) 09/13/19 12:35 Calcium 8.7 mg/dL (8.5-10.1) 09/13/19 12:35 Total Bilirubin 0.2 mg/dL (0.2-1) 09/13/19 12:35 AST 36 U/L (15-37) 09/13/19 12:35 ALT 47 U/L (13-61) 09/13/19 12:35 Alkaline Phosphatase 105 U/L (45-117) 09/13/19 12:35 Total Protein 7.1 g/dl (6.4-8.2) 09/13/19 12:35 Albumin 3.9 g/dl (3.4-5.0) 09/13/19 12:35 RPR Titer Nonreactive (NONREACTIVE) 09/13/19 12:35 HIV 1&2 Antibody Screen Negative 09/13/19 12:35 HIV P24 Antigen Negative 09/13/19 12:35 lab noted Assessment: 09/16/19 12:24 alcohol withdrawal Plan: librium regimen
[2019-09-16] MEDS: THIAMINE HCL 100 MG TABLET (FP) PO SCH (22:02)
[2019-09-16] MEDS: MELATONIN 5 MG TABLETS PO PRN (22:02)
[2019-09-17] MEDS ORDERED: chlordiazePOXIDE HCL 10 MG CAPSULE PO SCH (05:00)
[2019-09-17 09:02] VITALS: BP 118/81; PULSE 75; TEMP 98.6
--- NOTE | 2019-09-17 13:19 | DS ---
[facility] Detox Discharge Summary Admission Date: 09/13/19 Discharge Date: 09/17/19 - History Present History: Alcohol Dependence Additional Comments: 49 years old male admitted on 09/13/19 for alcohol withdrawal sx management treated with librium detox regimen patient tolerated well alert oriented x 3 respiratory clear lung bilaterally on auscultation abdomen soft no rebound tenderness skin warm and dry - Physical Exam Results Vital Signs: Vital Signs Temperature 98.6 F 09/17/19 09:02 Pulse Rate 75 09/17/19 09:02 Respiratory Rate 18 09/17/19 09:02 Blood Pressure 118/81 09/17/19 09:02 O2 Sat by Pulse Oximetry (%) Pertinent Admission Physical Exam Findings: alcohol withdrawal Laboratory Last Values WBC 5.2 K/mm3 (4.0-10.0) 09/13/19 12:35 RBC 4.33 M/mm3 (4.00-5.60) 09/13/19 12:35 Hgb 12.8 GM/dL (11.7-16.9) 09/13/19 12:35 Hct 39.2 % (35.4-49) 09/13/19 12:35 MCV 90.6 fl (80-96) 09/13/19 12:35 MCH 29.5 pg (25.7-33.7) 09/13/19 12:35 MCHC 32.6 g/dl (32.0-35.9) 09/13/19 12:35 RDW 14.7 % (11.9-15.9) 09/13/19 12:35 Plt Count 225 K/MM3 (134-434) D 09/13/19 12:35 MPV 9.8 fl (7.5-11.1) 09/13/19 12:35 Sodium 140 mmol/L (136-145) 09/13/19 12:35 Potassium 3.7 mmol/L (3.5-5.1) 09/13/19 12:35 Chloride 108 mmol/L (98-107) H 09/13/19 12:35 Carbon Dioxide 21 mmol/L (21-32) 09/13/19 12:35 Anion Gap 12 MMOL/L (8-16) 09/13/19 12:35 BUN 19.5 mg/dL (7-18) H 09/13/19 12:35 Creatinine 0.8 mg/dL (0.55-1.3) 09/13/19 12:35 Est GFR (CKD-EPI)AfAm 121.57 09/13/19 12:35 Est GFR (CKD-EPI)NonAf 104.89 09/13/19 12:35 Random Glucose 99 mg/dL (74-106) 09/13/19 12:35 Calcium 8.7 mg/dL (8.5-10.1) 09/13/19 12:35 Total Bilirubin 0.2 mg/dL (0.2-1) 09/13/19 12:35 AST 36 U/L (15-37) 09/13/19 12:35 ALT 47 U/L (13-61) 09/13/19 12:35 Alkaline Phosphatase 105 U/L (45-117) 09/13/19 12:35 Total Protein 7.1 g/dl (6.4-8.2) 09/13/19 12:35 Albumin 3.9 g/dl (3.4-5.0) 09/13/19 12:35 RPR Titer Nonreactive (NONREACTIVE) 09/13/19 12:35 HIV 1&2 Antibody Screen Negative 09/13/19 12:35 HIV P24 Antigen Negative 09/13/19 12:35 lab noted - Treatment Hospital Course: Detox Protocol Followed, Detoxed Safely, Responded well, Discharged Condition Good, Rehab Referral Accepted Patient has Accepted a Rehab Referral to: [facility] - Medication Discharge Medications: Ambulatory Orders NK [No Known Home Medication] 05/25/19 - Diagnosis (1) Substance induced mood disorder Status: Suspected (2) Alcohol dependence with uncomplicated withdrawal Status: Acute (3) Asthma Status: Chronic Qualifiers: Asthma severity: mild Asthma persistence: intermittent Asthma complication type: with status asthmaticus Qualified Code(s): J45.22 - Mild intermittent asthma with status asthmaticus (4) Nicotine dependence Status: Acute Qualifiers: Nicotine product type: cigarettes Substance use status: in withdrawal Qualified Code(s): F17.213 - Nicotine dependence, cigarettes, with withdrawal - AMA Did Patient Leave Against Medical Advice: No CIWA Score - CIWA Score Nausea/Vomitin-No Nausea/No Vomiting Muscle Tremors: 1-None Visible, but [place] Anxiety: 1-Mildly Anxious Agitation: 0-Normal Activity Paroxysmal Sweats: No Perspiration Orientation: 0-Oriented Tacttile Disturbances: 0-None Auditory Disturbances: 0-None Visual Disturbances: 0-None Headache: 0-None Present CIWA-Ar Total Score: 2
[2019-09-18] MEDS ORDERED: chlordiazePOXIDE HCL 10 MG CAPSULE PO ONE (05:00)
== END 2019-09-17 09:01 | disposition home or self-care (01) | DRG 775 ==
LOC: YASAS 09:46 → Y3N 12:46
PROVIDERS: ADMIT Allergy & Immunology; ATTEND Allergy & Immunology
PROC: HZ2ZZZZ Detoxification Services for Substance Abuse Treatment (ICD-10-PCS; principal; 2019-09-13)
DX: F10.230 Alcohol dependence with withdrawal, uncomplicated (principal); F12.20 Cannabis dependence, uncomplicated; F17.213 Nicotine dependence, cigarettes, with withdrawal; F19.24 Other psychoactive substance dependence with psychoactive substance-induced mood disorder; F20.9 Schizophrenia, unspecified; J45.22 Mild intermittent asthma with status asthmaticus; R63.4 Abnormal weight loss
CPT/HCPCS: 36415; 80053; 85027; 86593; 87389

== ENCOUNTER 2019-10-01 10:56 | Inpatient (IN) | payer OTHER ==
[2019-10-01 12:29] VITALS: BMI 26.3
--- NOTE | 2019-10-01 15:50 | HP ---
CIWA Score Nausea/Vomitin-Int. Nausea w/Dry Heave Muscle Tremors: 1-None Visible, but [place] Anxiety: 4-Mod. Anxious/Guarded Agitation: 1-Slight > Activity Paroxysmal Sweats: 3 Orientation: 0-Oriented Tacttile Disturbances: 0-None Auditory Disturbances: 0-None Visual Disturbances: 0-None Headache: 0-None Present CIWA-Ar Total Score: 13 - Admission Criteria OASAS Guidelines: Admission for Medically Managed Detox: Requires at least one of the followin. CIWA greater than 12 2. Seizures within the past 24 hours 3. Delirium tremens within the past 24 hours 4. Hallucinations within the past 24 hours 5. Acute intervention needed for co occurring medical disorder 6. Acute intervention needed for co occurring psychiatric disorder 7. Severe withdrawal that cannot be handled at a lower level of care (continued vomiting, continued diarrhea, abnormal vital signs) requiring intravenous medication and/or fluids 8. Patient presents the following: CIWA greater than 12 Admission Criteria Met: Admission criteria met Admitting History and Physical - Admission History of Present Illness: Mr. Covarrubias is a 49 year old man with hx of asthma who presents today with a desire to go to detox for alcohol. He states he was last here at the end of august but began drinking shortly after leaving detox. He did a similar thing one month prior in Jul. He states that this time is different because he is interested in attending inpatient rehab after detox and then outpatient rehab. He has been drinking since the age of 27 and has been to detox 9 times and rehab once. He was most recently sober for 1 year but relapsed after his mother . He has never had seizures from alcohol withdrawal but states he blacks out every night. He states he gets tremors and sweats upon awaking and must start drinking immediately. He currently lives alone in a house but he is with three children and grandchildren who are supportive of his rehabilitation. He is not currently employed. - Smoking History Smoking history: Current every day smoker Have you smoked in the past 12 months: Yes Aproximately how many cigarettes per day: 10 - Alcohol/Substance Use Hx Alcohol Use: Yes History of Substance Use: reports: Marijuana - Social History ADL: Support Services Occupation: un employed History of Recent Travel: No Admission ROS BHS - HPI Allergies/Adverse Reactions: Allergies Allergy/AdvReac Type Severity Reaction Status Date / Time No Known Allergies Allergy Verified 10/01/19 12:27 - Ebola screening Have you traveled outside of the country in the last 21 days: No Have you had contact with anyone from an Ebola affected area: No Do you have a fever: No - Review of Systems Constitutional: Chills, Loss of Appetite, Malaise EENT: denies: Eye Pain, Ear Pain, Mouth Pain, Throat Pain Respiratory: denies: Cough, Shortness of Breath Cardiac: denies: Chest Pain, Palpitations, Syncope GI: reports: Diarrhea, Nausea, Vomiting. denies: Constipated : denies: Burning Musculoskeletal: denies: Back Pain, Joint Pain, Muscle Pain Integumentary: reports: No Symptoms Reported Neuro: reports: Headache. denies: Numbness, Paresthesia, Tingling Endocrine: reports: No Symptoms Reported Hematology: denies: Blood Clots, Easy Bleeding Psychiatric: reports: other (PTSD) Other Systems: Reviewed and Negative Patient History - Patient Medical History Hx Anemia: No Hx Asthma: No Hx Chronic Obstructive Pulmonary Disease (COPD): No Hx Cancer: No Hx Cardiac Disorders: No Hx Congestive Heart Failure: No Hx Hypertension: No Hx Hypercholesterolemia: No Hx Pacemaker: No HX Cerebrovascular Accident: No Hx Seizures: No Hx Dementia: No Hx Diabetes: No Hx Gastrointestinal Disorders: No Hx Liver Disease: No Hx Genitourinary Disorders: No Hx Sexually Transmitted Disorders: No Hx Renal Disease (ESRD): No Hx Thyroid Disease: No Hx Human Immunodeficiency Virus (HIV): No (negative LAST 2017) Hx Hepatitis C: No (negative) Hx Depression: No Hx Suicide Attempt: No Hx Bipolar Disorder: No Hx Schizophrenia: No - Patient Surgical History Past Surgical History: No Hx Neurologic Surgery: No Hx Cataract Extraction: No Hx Cardiac Surgery: No Hx Lung Surgery: No Hx Breast Surgery: No Hx Breast Biopsy: No Hx Abdominal Surgery: No Hx Appendectomy: No Hx Cholecystectomy: No Hx Genitourinary Surgery: No Hx Section: No Hx Orthopedic Surgery: No Anesthesia Reaction: No - PPD History Date: 08/19/19 Results: o mm - Smoking Cessation Smoking history: Current every day smoker Have you smoked in the past 12 months: Yes Aproximately how many cigarettes per day: 10 Cigars Per Day: 0 Hx Chewing Tobacco Use: No Initiated information on smoking cessation: Yes 'Breaking Loose' booklet given: 10/02/19 - Substances abused Alcohol Substance route: Oral Frequency: Daily Amount used: 2 pints of vodka Age of first use: 27 Date of last use: 09/13/19 Marijuana/Hashish Substance route: Smoking Frequency: 1-3 times last 30 days Amount used: 3$ Age of first use: 27 Date of last use: 08/29/19 Admission Physical Exam S - Vital Signs Vital Signs: Vital Signs - 24 hr 10/01/19 12:26 Temperature 97.9 F Pulse Rate 81 Respiratory 17 Rate Blood Pressure 143/89 - Physical General Appearance: Yes: Mild Distress HEENTM: Yes: Within Normal Limits, EOMI, Normal ENT Inspection, Pharynx Normal Respiratory: Yes: Within Normal Limits, Chest Non-Tender, Lungs Clear, Normal Breath Sounds, Surgical Scar Neck: Yes: Within Normal Limits, Trachea in good position Cardiology: Yes: Within Normal Limits, Regular Rhythm, Regular Rate, S1, S2 Abdominal: Yes: Within Normal Limits, Normal Bowel Sounds, Non Tender, Flat, Soft Back: Yes: Within Normal Limits, Normal Inspection. No: CVA Tenderness Musculoskeletal: Yes: Within Normal Limits, full range of Motion, Gait Steady Extremities: Yes: Within Normal Limits, Normal Capillary Refill, Normal Range of Motion, Non-Tender 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: Within Normal Limits, swahili teacher II-XII NML intact, Fully Oriented, Motor Strength 5/5, Normal Mood/Affect Integumentary: Yes: Within Normal Limits, Normal Color, Dry Lymphatic: Yes: Within Normal Limits Breathalyzer - Breathalyzer Breathalyzer: 0.213 Urine Drug Screen - Test Device Lot number: [id number] Expiration date: 04/24/21 - Control Is test valid?: Yes - Results Drug screen NEGATIVE: No Urine drug screen results: BZO-Benzodiazepines Inpatient Rehab Admission - Rehab Decision to Admit Inpatient rehab admission?: No
--- NOTE | 2019-10-01 16:33 | PN ---
Teaching Attending Note Name of Resident: Casandra Long ATTENDING PHYSICIAN STATEMENT I saw and evaluated the patient. I reviewed the resident's note and discussed the case with the resident. I agree with the resident's findings and plan as documented. SUBJECTIVE: 49 yo with long h/o AUD- recently discharged from here. Returns today with relapse. alcohol 1 1/2 pints vodka/day. OBJECTIVE: Vital Signs - 24 hr 10/01/19 12:26 Temperature 97.9 F Pulse Rate 81 Respiratory 17 Rate Blood Pressure 143/89 tremulous ASSESSMENT AND PLAN: AUD- treatment with librium detox
[2019-10-01] MEDS ORDERED: IBUPROFEN 400 MG TABLET (FP) PO PRN (16:51)
[2019-10-01] MEDS ORDERED: MAGNESIUM HYDROX 2400MG/30ML ORAL SUSPENSION 30 ML CUP PO PRN (16:51)
[2019-10-01] MEDS ORDERED: BISMUTH SUBSALICYLATE 524 MG/30 ML UD PO PRN (16:51)
[2019-10-01] MEDS ORDERED: MELATONIN 5 MG TABLETS PO PRN (16:51)
[2019-10-01] MEDS ORDERED: chlordiazePOXIDE HCL 25 MG CAPSULE PO PRN (16:51)
[2019-10-01] MEDS ORDERED: hydrOXYzine PAMOATE 25 MG CAPSULE (FP) PO PRN (16:51)
[2019-10-01] MEDS ORDERED: MAGNESIUM CITRATE 300 ML BOTTLE PO PRN (16:51)
[2019-10-01] MEDS ORDERED: ACETAMINOPHEN 325 MG TABLET (FP) PO PRN ×2 (16:51)
[2019-10-01] MEDS ORDERED: MENTHOL/PHENOL 1 EACH UD MM PRN (16:51)
[2019-10-01] MEDS ORDERED: MAG HYDROX/AL HYDROX/SIMETH 30 ML UNIT-DOSE CUP PO PRN (16:51)
[2019-10-01] MEDS ORDERED: METHOCARBAMOL 500 MG TABLET PO PRN (16:51)
[2019-10-01] MEDS: chlordiazePOXIDE HCL 25 MG CAPSULE PO SCH ×2 (17:52→22:00)
[2019-10-01] MEDS: THIAMINE HCL 100 MG TABLET (FP) PO SCH (22:00)
[2019-10-02] MEDS: chlordiazePOXIDE HCL 25 MG CAPSULE PO SCH ×4 (05:11→22:01)
--- NOTE | 2019-10-02 08:31 | CONSULT ---
[facility] Psychiatric Consult - Data Date of interview: 10/02/19 Admission source: Self-referred Identifying data: Mr Covarrubias is a single male, father of 3 children, unemployed receiving public assistance, domiciled seeking detox treatment for alcohol and cannabis Substance Abuse History: Reports history of alcohol and marijuana use. Refer to addiction counselor's summary for further information Medical History: Significant for bronchial asthma. Smokes 10 cigaretes daily Psychiatric History: Denies history of previous psychiatric treatment. However, reports sleeping poorly Physical/Sexual Abuse/Trauma History: Denies history of emotional, physical or sexual abuse as well as DV relationship. No service Additional Comment: Reports history of multiple arrests including 3 felony convictions. No parole/probation currently Mental Status Exam - Mental Status Exam Alert and Oriented to: Time, Place, Person Cognitive Function: Fair Patient Appearance: Well Groomed Mood: Hopeful, Euthymic Patient Behavior: Cooperative Speech Pattern: Clear Voice Loudness: Normal Thought Process: Intact, Goal Oriented Thought Disorder: Not Present Hallucinations: Denies Suicidal Ideation: Denies Homicidal Ideation: Denies Insight/Judgement: Poor Sleep: Poorly Appetite: Fair Muscle strength/Tone: Normal Gait/Station: Normal Psychiatric Findings - Problem List ([place] 1, 2,3) (1) Substance-induced sleep disorder Current Visit: No Status: Acute (2) Alcohol dependence with uncomplicated withdrawal Current Visit: No Status: Acute (3) Cannabis abuse Current Visit: Yes Status: Acute (4) Nicotine dependence Current Visit: No Status: Acute Qualifiers: Nicotine product type: cigarettes Substance use status: in withdrawal Qualified Code(s): F17.213 - Nicotine dependence, cigarettes, with withdrawal (5) Asthma Current Visit: No Status: Chronic Qualifiers: Asthma severity: mild Asthma persistence: intermittent Asthma complication type: with status asthmaticus Qualified Code(s): J45.22 - Mild intermittent asthma with status asthmaticus - Initial Treatment Plan Initial Treatment Plan: 1) Start Melatonin 10 mg po HS prn for insomnia. 2) Continue inpatient detoxification
[2019-10-02 09:41] LABS: HEMATOCRIT 38.9 % (35.4-49); HEMOGLOBIN 12.8 GM/dL (11.7-16.9); MCH 29.5 pg (25.7-33.7); MCHC 32.8 g/dl (32.0-35.9); MEAN CELL VOLUME 89.7 fl (80-96); MEAN PLT VOLUME 9.9 fl (7.5-11.1); PLATELET COUNT 149 K/MM3 (134-434); RBC 4.34 M/mm3 (4.00-5.60); RDW 14.5 % (11.9-15.9); WHITE BLOOD COUNT 4.8 K/mm3 (4.0-10.0)
--- NOTE | 2019-10-02 09:50 | PN ---
S CIWA - CIWA Score Nausea/Vomitin-Mild Nausea/No Vomiting Muscle Tremors: 2 Anxiety: 2 Agitation: 2 Paroxysmal Sweats: No Perspiration Orientation: 0-Oriented Tacttile Disturbances: 1-Very Mild Itch/Numbness Auditory Disturbances: 0-None Visual Disturbances: 0-None Headache: 1-Very Mild CIWA-Ar Total Score: 9 BHS Progress Note (SOAP) Subjective: alert,irritable,anxious,interrupted sleep,tremor Objective: 10/02/19 09:49 Vital Signs Temperature 97.6 F 10/02/19 09:09 Pulse Rate 82 10/02/19 09:09 Respiratory Rate 18 10/02/19 09:09 Blood Pressure 144/99 10/02/19 09:09 O2 Sat by Pulse Oximetry (%) 10/02/19 09:49 labs pending Assessment: 10/02/19 09:49 withdrawal symptom Plan: continue detox librium regimen
[2019-10-02] MEDS: PRENATAL VITAMINS W/ FOLIC ACID TABLET (FP) PO SCH (10:05)
[2019-10-02 10:08] LABS: ALBUMIN 3.5 g/dl (3.4-5.0); BILIRUBIN,TOTAL 0.5 mg/dL (0.2-1); BLOOD UREA NITROGEN 10.7 mg/dL (7-18); CALCIUM 8.5 mg/dL (8.5-10.1); CREATININE 0.7 mg/dL (0.55-1.3); POTASSIUM 4.1 mmol/L (3.5-5.1); TOT PROT 6.1 g/dl (6.4-8.2)
[2019-10-02] MEDS: MELATONIN 5 MG TABLETS PO PRN (22:01)
[2019-10-02] MEDS: THIAMINE HCL 100 MG TABLET (FP) PO SCH (22:01)
[2019-10-03] MEDS: chlordiazePOXIDE HCL 25 MG CAPSULE PO SCH ×4 (05:13→22:07)
--- NOTE | 2019-10-03 08:53 | PN ---
S CIWA - CIWA Score Nausea/Vomitin-No Nausea/No Vomiting Muscle Tremors: 2 Anxiety: 2 Agitation: 0-Normal Activity Paroxysmal Sweats: 1-Minimal Palms Moist Orientation: 0-Oriented Tacttile Disturbances: 1-Very Mild Itch/Numbness Auditory Disturbances: 0-None Visual Disturbances: 0-None Headache: 0-None Present CIWA-Ar Total Score: 6 BHS Progress Note (SOAP) Subjective: c/o anxious, interrupted sleep, chills Objective: 10/03/19 08:52 Vital Signs Temperature 97.2 F L 10/03/19 05:00 Pulse Rate 56 L 10/03/19 05:00 Respiratory Rate 17 10/03/19 05:00 Blood Pressure 121/65 10/03/19 05:00 O2 Sat by Pulse Oximetry (%) Laboratory Last Values WBC 4.8 K/mm3 (4.0-10.0) 10/02/19 08:00 RBC 4.34 M/mm3 (4.00-5.60) 10/02/19 08:00 Hgb 12.8 GM/dL (11.7-16.9) 10/02/19 08:00 Hct 38.9 % (35.4-49) 10/02/19 08:00 MCV 89.7 fl (80-96) 10/02/19 08:00 MCH 29.5 pg (25.7-33.7) 10/02/19 08:00 MCHC 32.8 g/dl (32.0-35.9) 10/02/19 08:00 RDW 14.5 % (11.9-15.9) 10/02/19 08:00 Plt Count 149 K/MM3 (134-434) D 10/02/19 08:00 MPV 9.9 fl (7.5-11.1) 10/02/19 08:00 Sodium 141 mmol/L (136-145) 10/02/19 08:00 Potassium 4.1 mmol/L (3.5-5.1) 10/02/19 08:00 Chloride 107 mmol/L (98-107) 10/02/19 08:00 Carbon Dioxide 28 mmol/L (21-32) 10/02/19 08:00 Anion Gap 6 MMOL/L (8-16) L 10/02/19 08:00 BUN 10.7 mg/dL (7-18) 10/02/19 08:00 Creatinine 0.7 mg/dL (0.55-1.3) 10/02/19 08:00 Est GFR (CKD-EPI)AfAm 128.43 10/02/19 08:00 Est GFR (CKD-EPI)NonAf 110.81 10/02/19 08:00 Random Glucose 76 mg/dL (74-106) 10/02/19 08:00 Calcium 8.5 mg/dL (8.5-10.1) 10/02/19 08:00 Total Bilirubin 0.5 mg/dL (0.2-1) 10/02/19 08:00 AST 42 U/L (15-37) H 10/02/19 08:00 ALT 42 U/L (13-61) 10/02/19 08:00 Alkaline Phosphatase 88 U/L (45-117) 10/02/19 08:00 Total Protein 6.1 g/dl (6.4-8.2) L 10/02/19 08:00 Albumin 3.5 g/dl (3.4-5.0) 10/02/19 08:00 RPR Titer Nonreactive (NONREACTIVE) 10/02/19 08:00 labs reviewed, follow up with PCP post d/c Assessment: 10/03/19 08:52 Patient is AOx3 no acute distress no adventitious breath sounds full ROM ambulating in the unit withdrawal sx Plan: increase fluids continue detox continue to monitor
[2019-10-03] MEDS: PRENATAL VITAMINS W/ FOLIC ACID TABLET (FP) PO SCH (10:10)
[2019-10-03] MEDS: MELATONIN 5 MG TABLETS PO PRN (22:07)
[2019-10-03] MEDS: THIAMINE HCL 100 MG TABLET (FP) PO SCH (22:07)
[2019-10-04] MEDS ORDERED: chlordiazePOXIDE HCL 10 MG CAPSULE PO PRN
[2019-10-04] MEDS: chlordiazePOXIDE HCL 10 MG CAPSULE PO SCH ×4 (05:20→22:10)
--- NOTE | 2019-10-04 10:10 | PN ---
S CIWA - CIWA Score Nausea/Vomitin-No Nausea/No Vomiting Muscle Tremors: 1-None Visible, but [place] Anxiety: 2 Agitation: 1-Slight > Activity Paroxysmal Sweats: 2 Orientation: 0-Oriented Tacttile Disturbances: 1-Very Mild Itch/Numbness Auditory Disturbances: 0-None Visual Disturbances: 1-Very Mild Sensitivity Headache: 1-Very Mild CIWA-Ar Total Score: 9 BHS Progress Note (SOAP) Subjective: c/o of diarreha Objective: 10/04/19 10:10 Vital Signs Temperature 97.5 F L 10/04/19 09:47 Pulse Rate 62 10/04/19 09:47 Respiratory Rate 18 10/04/19 09:47 Blood Pressure 134/79 10/04/19 09:47 O2 Sat by Pulse Oximetry (%) Laboratory Last Values WBC 4.8 K/mm3 (4.0-10.0) 10/02/19 08:00 RBC 4.34 M/mm3 (4.00-5.60) 10/02/19 08:00 Hgb 12.8 GM/dL (11.7-16.9) 10/02/19 08:00 Hct 38.9 % (35.4-49) 10/02/19 08:00 MCV 89.7 fl (80-96) 10/02/19 08:00 MCH 29.5 pg (25.7-33.7) 10/02/19 08:00 MCHC 32.8 g/dl (32.0-35.9) 10/02/19 08:00 RDW 14.5 % (11.9-15.9) 10/02/19 08:00 Plt Count 149 K/MM3 (134-434) D 10/02/19 08:00 MPV 9.9 fl (7.5-11.1) 10/02/19 08:00 Sodium 141 mmol/L (136-145) 10/02/19 08:00 Potassium 4.1 mmol/L (3.5-5.1) 10/02/19 08:00 Chloride 107 mmol/L (98-107) 10/02/19 08:00 Carbon Dioxide 28 mmol/L (21-32) 10/02/19 08:00 Anion Gap 6 MMOL/L (8-16) L 10/02/19 08:00 BUN 10.7 mg/dL (7-18) 10/02/19 08:00 Creatinine 0.7 mg/dL (0.55-1.3) 10/02/19 08:00 Est GFR (CKD-EPI)AfAm 128.43 10/02/19 08:00 Est GFR (CKD-EPI)NonAf 110.81 10/02/19 08:00 Random Glucose 76 mg/dL (74-106) 10/02/19 08:00 Calcium 8.5 mg/dL (8.5-10.1) 10/02/19 08:00 Total Bilirubin 0.5 mg/dL (0.2-1) 10/02/19 08:00 AST 42 U/L (15-37) H 10/02/19 08:00 ALT 42 U/L (13-61) 10/02/19 08:00 Alkaline Phosphatase 88 U/L (45-117) 10/02/19 08:00 Total Protein 6.1 g/dl (6.4-8.2) L 10/02/19 08:00 Albumin 3.5 g/dl (3.4-5.0) 10/02/19 08:00 RPR Titer Nonreactive (NONREACTIVE) 10/02/19 08:00 Assessment: 10/04/19 14:43 Patient is Aox3 no acute distress EENT WNL Full ROM, no gait disturbance ambulating in the unit i withdrawal sx Plan: increase fluids continue detox continue to monitor
[2019-10-04] MEDS: PRENATAL VITAMINS W/ FOLIC ACID TABLET (FP) PO SCH (10:34)
[2019-10-04] MEDS: MELATONIN 5 MG TABLETS PO PRN (22:10)
[2019-10-04] MEDS: THIAMINE HCL 100 MG TABLET (FP) PO SCH (22:11)
[2019-10-05] MEDS ORDERED: chlordiazePOXIDE HCL 10 MG CAPSULE PO SCH (05:00)
--- NOTE | 2019-10-05 09:23 | DS ---
[facility] Detox Discharge Summary Admission Date: 10/01/19 Discharge Date: 10/05/19 - History Present History: Alcohol Dependence, Cannabis Dependence - Physical Exam Results Vital Signs: Vital Signs Temperature 97.3 F L 10/05/19 06:24 Pulse Rate 55 L 10/05/19 06:24 Respiratory Rate 18 10/05/19 06:24 Blood Pressure 118/64 10/05/19 06:24 O2 Sat by Pulse Oximetry (%) Pertinent Admission Physical Exam Findings: Vital Signs Temperature 97.3 F L 10/05/19 06:24 Pulse Rate 55 L 10/05/19 06:24 Respiratory Rate 18 10/05/19 06:24 Blood Pressure 118/64 10/05/19 06:24 O2 Sat by Pulse Oximetry (%) Laboratory Tests 10/02/19 10/02/19 10/02/19 08:00 08:00 08:00 WBC 4.8 RBC 4.34 Hgb 12.8 Hct 38.9 MCV 89.7 MCH 29.5 MCHC 32.8 RDW 14.5 Plt Count 149 D MPV 9.9 Sodium 141 Potassium 4.1 Chloride 107 Carbon Dioxide 28 Anion Gap 6 L BUN 10.7 Creatinine 0.7 Est GFR (CKD-EPI)AfAm 128.43 Est GFR (CKD-EPI)NonAf 110.81 Random Glucose 76 Calcium 8.5 Total Bilirubin 0.5 AST 42 H ALT 42 Alkaline Phosphatase 88 Total Protein 6.1 L Albumin 3.5 RPR Titer Nonreactive aaox3 ambulating no acute distress - Treatment Hospital Course: Detox Protocol Followed, Detoxed Safely, Responded well, Discharged Condition Good, Rehab Referral Accepted Patient has Accepted a Rehab Referral to: referral provided - Medication Discharge Medications: Ambulatory Orders NK [No Known Home Medication] 05/25/19 - Diagnosis (1) Cannabis abuse Current Visit: Yes Status: Chronic (2) Alcohol dependence with uncomplicated withdrawal Current Visit: Yes Status: Chronic (3) Alcohol-induced mood disorder Current Visit: No Status: Acute (4) Alcohol-induced sleep disorder Current Visit: No Status: Acute (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 (6) Nicotine dependence Current Visit: Yes Status: Acute Qualifiers: Nicotine product type: cigarettes Substance use status: uncomplicated Qualified Code(s): F17.210 - Nicotine dependence, cigarettes, uncomplicated (7) Substance-induced sleep disorder Current Visit: No Status: Acute (8) Asthma Current Visit: Yes Status: Chronic Qualifiers: Asthma severity: mild Asthma persistence: intermittent Asthma complication type: with status asthmaticus Qualified Code(s): J45.22 - Mild intermittent asthma with status asthmaticus (9) Schizophrenia Current Visit: No Status: Chronic Qualifiers: Schizophrenia type: unspecified Qualified Code(s): F20.9 - Schizophrenia, unspecified (10) Substance induced mood disorder Current Visit: No Status: Suspected - AMA Did Patient Leave Against Medical Advice: No
[2019-10-05 09:24] VITALS: BP 123/76; PULSE 57; TEMP 97.9
[2019-10-06] MEDS ORDERED: chlordiazePOXIDE HCL 10 MG CAPSULE PO ONE (05:00)
== END 2019-10-05 09:35 | disposition home or self-care (01) | DRG 775 ==
LOC: YASAS 10:56 → Y6N 16:56
PROVIDERS: ADMIT Allergy & Immunology; ATTEND Allergy & Immunology
PROC: HZ2ZZZZ Detoxification Services for Substance Abuse Treatment (ICD-10-PCS; principal; 2019-10-01)
DX: F10.230 Alcohol dependence with withdrawal, uncomplicated (principal); F12.20 Cannabis dependence, uncomplicated; F17.210 Nicotine dependence, cigarettes, uncomplicated; F19.282 Other psychoactive substance dependence with psychoactive substance-induced sleep disorder; F10.24 Alcohol dependence with alcohol-induced mood disorder; F19.24 Other psychoactive substance dependence with psychoactive substance-induced mood disorder; F20.9 Schizophrenia, unspecified; F10.282 Alcohol dependence with alcohol-induced sleep disorder; J45.22 Mild intermittent asthma with status asthmaticus; M20.009 Unspecified deformity of unspecified finger(s)
CPT/HCPCS: 36415; 80053; 85027; 86593

== ENCOUNTER 2020-06-18 12:47 | Inpatient (IN) | payer OTHER ==
--- NOTE | 2020-06-18 13:10 | BHS.RME ---
Substance Use & Tx History - Substance Use History Alcohol Substance amount: 2 pints Frequency of use: Daily Substance route: Oral Date of Last Use: 06/18/20 - Last Treatment Date of last treatment: November 2018, completed detox Treatment type: Substance Use Disorder (ELIER) Where was last treatment: Detox Physical/Psych/Mental Status - Behavior General Behavior: Decreased activity Eye Contact: Normal - Cooperativeness Cooperativeness: Cooperative - Thinking Thought Processes: Tight Thought content: Future oriented - Physical Health Problems Is patient presently having any pain?: Yes (left thumb fractured 2 weeks ago) Does patient presently have any injuries (include location): Yes (fell 2 weeks ago, blackout) CIWA Nausea/Vomitin Muscle Tremors: 1-None Visible, but [place] Anxiety: 2 Agitation: 2 Paroxysmal Sweats: 4-Forehead w/Sweat Beads Orientation: 0-Oriented Tacttile Disturbances: 0-None Auditory Disturbances: 0-None Visual Disturbances: 0-None Headache: 0-None Present CIWA-Ar Total Score: 12
--- NOTE | 2020-06-18 13:51 | HP ---
CIWA Score Nausea/Vomitin Muscle Tremors: 1-None Visible, but [place] Anxiety: 2 Agitation: 2 Paroxysmal Sweats: 4-Forehead w/Sweat Beads Orientation: 0-Oriented Tacttile Disturbances: 0-None Auditory Disturbances: 0-None Visual Disturbances: 0-None Headache: 0-None Present CIWA-Ar Total Score: 12 - Admission Criteria OASAS Guidelines: Admission for Medically Managed Detox: Requires at least one of the followin. CIWA greater than 12 2. Seizures within the past 24 hours 3. Delirium tremens within the past 24 hours 4. Hallucinations within the past 24 hours 5. Acute intervention needed for co occurring medical disorder 6. Acute intervention needed for co occurring psychiatric disorder 7. Severe withdrawal that cannot be handled at a lower level of care (continued vomiting, continued diarrhea, abnormal vital signs) requiring intravenous medication and/or fluids 8. Admitting History and Physical - Admission Chief Complaint: 49 yo M presenting for alcohol detox. History of Present Illness: 49 yo M presenting for alcohol detox. Pt was last here in November (12/05-12/10/2019; completed detox). Pt reports wanting to complete detox and wants to go to "outpatient rehab" afterwards. Pt reports being clean for approximately 1 month; pt reports multiple possible triggers for relapse including chronic stress, "emotional pain" (reports PTSD from his brother being killed in front of him years ago), and losing his job about 3 months ago. Pt reports "the pain comes back" when he is not drinking alcohol. Pt reports being sober for about 1 year from Sep 2016 - Late Jul 2017. Meets criteria as pt with history of withdrawal symptoms and recent use has obscured CIWA score. Pt blacked out 2 weeks ago; no seizures in the past. Pt also smokes about 10 cigarettes/day (since age of 18). Pt tried cocaine "years ago" but has never used it since. PMH: denies PSH: L thumb - orthopedic surgery (3-4 years ago) - takes ibuprofen to control residual pain Psych: PTSD (never on medications) Soc/Domiciled: Live by himself in an apt in the [place] Legal: no - Substance Use History Alcohol Substance amount: 2 pints Frequency of use: Daily Substance route: Oral Date of Last Use: 06/18/20 - Last Treatment Date of last treatment: November 2018, completed detox Treatment type: Substance Use Disorder (ELIER) Where was last treatment: Detox History Source: Patient Limitations to Obtaining History: No Limitations - Smoking History Smoking history: Current every day smoker Have you smoked in the past 12 months: Yes Aproximately how many cigarettes per day: 10 - Alcohol/Substance Use Hx Alcohol Use: Yes History of Substance Use: reports: Marijuana - Social History ADL: Support Services Occupation: un employed History of Recent Travel: No Admission ROS [facility] - HPI Allergies/Adverse Reactions: Allergies Allergy/AdvReac Type Severity Reaction Status Date / Time No Known Allergies Allergy Verified 12/06/19 17:06 - Ebola screening Have you traveled outside of the country in the last 21 days: No Have you been sick,other than usual withdrawal symptoms: No Do you have a fever: No - Review of Systems Constitutional: Diaphoresis (intermittent; occurs when he stops drinking) EENT: reports: Blurred Vision (cannot read from close for last several months - uses glasses for this) Respiratory: reports: No Symptoms reported Cardiac: reports: No Symptoms Reported GI: reports: Diarrhea, Nausea (intermittent nausea but reports not as much currently because recent alcohol use) : reports: No Symptoms Reported Musculoskeletal: reports: No Symptoms Reported Integumentary: reports: No Symptoms Reported (mild sha) Neuro: reports: Tremors (very mild tremors), Other (mild "shakiness"/restlessness) Endocrine: reports: No Symptoms Reported Hematology: reports: No Symptoms Reported Psychiatric: reports: Orientated x3, other (reports sometimes feeling agitated and anxious but none currently.) Patient History - Patient Medical History Hx Anemia: No Hx Asthma: No Hx Chronic Obstructive Pulmonary Disease (COPD): No Hx Cancer: No Hx Cardiac Disorders: No Hx Congestive Heart Failure: No Hx Hypertension: No Hx Hypercholesterolemia: No Hx Pacemaker: No HX Cerebrovascular Accident: No Hx Seizures: No Hx Dementia: No Hx Diabetes: No Hx Gastrointestinal Disorders: No Hx Liver Disease: No Hx Genitourinary Disorders: No Hx Sexually Transmitted Disorders: No Hx Renal Disease (ESRD): No Hx Thyroid Disease: No Hx Human Immunodeficiency Virus (HIV): No (negative LAST 2017) Hx Hepatitis C: No (negative) Hx Depression: No Hx Suicide Attempt: No Hx Bipolar Disorder: No Hx Schizophrenia: No - Patient Surgical History Past Surgical History: No Hx Neurologic Surgery: No Hx Cataract Extraction: No Hx Cardiac Surgery: No Hx Lung Surgery: No Hx Breast Surgery: No Hx Breast Biopsy: No Hx Abdominal Surgery: No Hx Appendectomy: No Hx Cholecystectomy: No Hx Genitourinary Surgery: No Hx Section: No Hx Orthopedic Surgery: No Anesthesia Reaction: No - PPD History Date: 08/19/19 Results: o mm - Smoking Cessation Smoking history: Current every day smoker Have you smoked in the past 12 months: Yes Aproximately how many cigarettes per day: 10 Cigars Per Day: 0 Hx Chewing Tobacco Use: No Initiated information on smoking cessation: Yes 'Breaking Loose' booklet given: 06/18/[address] [facility] - Vital Signs Vital Signs: BP 130/83 HR 69 RR 18 T 97.9 O2 sat 100% - Physical General Appearance: Yes: No Apparent Distress, Nourished, Appropriately Dressed HEENTM: Yes: EOMI, Hearing grossly Normal, Normocephalic, Normal Voice Respiratory: Yes: Lungs Clear, Normal Breath Sounds, No Respiratory Distress, No Accessory Muscle Use Neck: Yes: Supple, Trachea in good position Breast: Yes: Breast Exam Deferred Cardiology: Yes: Regular Rate, S1, S2 Abdominal: Yes: Normal Bowel Sounds, Non Tender, Flat, Soft Genitourinary: Yes: Other (deferred) Back: Yes: Normal Inspection Musculoskeletal: Yes: full range of Motion, Gait Steady Extremities: Yes: Normal Inspection, Normal Range of Motion, Non-Tender 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: Fully Oriented, Alert, Motor Strength 5/5, Other (mild tremor that can be felt with pts hands outstretched) Integumentary: Yes: Normal Color, Dry, Warm Cleared for Admission [facility] - Detox or Rehab [facility] Level of Care: Medically Managed Detox Regimen/Protocol: Librium Breathalyzer - Breathalyzer Breathalyzer: 0.199 Urine Drug Screen - Test Device Lot number: [id number] Expiration date: 08/24/21 - Control Is test valid?: Yes - Results Drug screen NEGATIVE: No Urine drug screen results: THC-Marijuana Inpatient Rehab Admission - Rehab Decision to Admit Inpatient rehab admission?: No
[2020-06-18] MEDS ORDERED: MAG HYDROX/AL HYDROX/SIMETH 30 ML UNIT-DOSE CUP PO PRN (14:05)
[2020-06-18] MEDS ORDERED: ACETAMINOPHEN 325 MG TABLET (FP) PO PRN ×2 (14:05)
[2020-06-18] MEDS ORDERED: MAGNESIUM HYDROX 2400MG/30ML ORAL SUSPENSION 30 ML CUP PO PRN (14:05)
[2020-06-18] MEDS ORDERED: METHOCARBAMOL 500 MG TABLET PO PRN (14:05)
[2020-06-18] MEDS ORDERED: MENTHOL/PHENOL 1 EACH UD MM PRN (14:05)
[2020-06-18] MEDS ORDERED: IBUPROFEN 400 MG TABLET (FP) PO PRN (14:05)
[2020-06-18] MEDS ORDERED: ONDANSETRON *ODT* 4 MG TABLET SL PRN (14:05)
[2020-06-18] MEDS ORDERED: BISMUTH SUBSALICYLATE 524 MG/30 ML UD PO PRN (14:05)
[2020-06-18] MEDS ORDERED: NICOTINE POLACRILEX 2 MG GUM BUC PRN (14:05)
[2020-06-18] MEDS ORDERED: MAGNESIUM CITRATE 300 ML BOTTLE PO PRN (14:05)
[2020-06-18] MEDS ORDERED: chlordiazePOXIDE HCL 25 MG CAPSULE PO PRN (14:05)
--- NOTE | 2020-06-18 14:22 | PN ---
Teaching Attending Note Name of Resident: Wendy Silva ATTENDING PHYSICIAN STATEMENT I saw and evaluated the patient. I reviewed the resident's note and discussed the case with the resident. I agree with the resident's findings and plan as documented. SUBJECTIVE: 49 yo with h/o AUD, was last here about 6 months- restarted using after a month of leaving here. pt states he wants to stop using- now using Vodka 1-2 pints/day OBJECTIVE: VSS BP 130/83. Pulse 69 Utox- THC BRYSON-.008 ASSESSMENT AND PLAN: AUD- start alcohol use disorder protocol
[2020-06-18 14:45] VITALS: BMI 25.4
--- OUTSIDE RECORDS SUMMARY | 2020-06-18 16:11 | XMS ---
:1970 Author Organization [facility] Support Name Relationship Address Phone ANANT GIBBS SELF / SAME PATIENT [address] [place] [place] [address] UE Unavailable Unavailable Unavailable ROBBIE BRIONES [address] [facility] [place] [address] Re-disclosure Warning The records that you are about to access may contain information from federally- assisted alcohol or drug abuse programs. If such information is present, then the following federally mandated warning applies: This information has been disclosed to you from records protected by federal confidentiality rules (42 CFR part 2). The federal rules prohibit you from making any further disclosure of this information unless further disclosure is expressly permitted by the written consent of the person to whom it pertains or as otherwise permitted by 42 CFR part 2. A general authorization for the release of medical or other information is NOT sufficient for this purpose. The Federal rules restrict any use of the information to criminally investigate or prosecute any alcohol or drug abuse patient.The records that you are about to access may contain highly sensitive health information, the redisclosure of which is protected by Article 27-F of the [facility] Public Health law. If you continue you may haveaccess to information: Regarding HIV / AIDS; Provided by facilities licensed or operated by the [facility] Office of Mental Health; or Provided by the [facility] Office for People With Developmental Disabilities. If such information is present, then the following [facility] mandated warning applies: This information has been disclosed to you from confidential records which are protected by state law. State law prohibits you from making any further disclosure of this information without the specific written consent of the person to whom it pertains, or as otherwise permitted by law. Any unauthorized further disclosure in violation of state law may result in a fine or nursing home sentence or both. A general authorization for the release of medical or other information is NOT sufficient authorization for further disclosure. Insurance Providers Payer name Policy type Policy ID Covered Covered republican's Policy P camila / Coverage republican ID relationship to [employer] Inf ormation type ramirez [employer] [id number] SP [id number] [employer] [id number] SP [id number] [employer] [id number] SP [id number] [employer] [id number] SP [id number] [employer] SELF PAY SP INSURANCE
[2020-06-18 17:32] LABS: HEMATOCRIT 36.2 % (35.4-49); MCH 29.4 pg (25.7-33.7); MCHC 33.2 g/dl (32.0-35.9); MEAN CELL VOLUME 88.5 fl (80-96); PLATELET COUNT 159 K/MM3 (134-434); RBC 4.09 M/mm3 (4.00-5.60); RDW 14.5 % (11.9-15.9); WHITE BLOOD COUNT 4.7 K/mm3 (4.0-10.0)
[2020-06-18 17:40] LABS: POTASSIUM 3.6 mmol/L (3.5-5.1)
[2020-06-18 17:46] LABS: ALBUMIN 3.8 g/dl (3.4-5.0); BILIRUBIN,TOTAL 0.3 mg/dL (0.2-1); BLOOD UREA NITROGEN 15.2 mg/dL (7-18); CALCIUM 8.9 mg/dL (8.5-10.1); CREATININE 0.7 mg/dL (0.55-1.3); TOT PROT 6.7 g/dl (6.4-8.2)
[2020-06-18] MEDS: NICOTINE 14 MG/24 HOURS TOPICAL PATCH TD SCH (18:43)
[2020-06-18] MEDS: hydrOXYzine PAMOATE 25 MG CAPSULE (FP) PO SCH ×2 (18:43→23:52)
[2020-06-18] MEDS: chlordiazePOXIDE HCL 25 MG CAPSULE PO SCH ×2 (18:43→23:52)
[2020-06-18] MEDS ORDERED: MELATONIN 5 MG TABLETS PO SCH (22:00)
[2020-06-18] MEDS: THIAMINE HCL 100 MG TABLET (FP) PO SCH (23:52)
[2020-06-19] MEDS: chlordiazePOXIDE HCL 25 MG CAPSULE PO SCH ×4 (05:14→22:43)
[2020-06-19] MEDS: hydrOXYzine PAMOATE 25 MG CAPSULE (FP) PO SCH ×2 (05:14→10:21)
--- NOTE | 2020-06-19 08:35 | PN ---
Teaching Attending Note Name of Resident: Wendy Silva ATTENDING PHYSICIAN STATEMENT I saw and evaluated the patient. I reviewed the resident's note and discussed the case with the resident. I agree with the resident's findings and plan as documented. SUBJECTIVE: OBJECTIVE: ASSESSMENT AND PLAN: 1. Alcohol withdrawal, uncomplicated Plan 1. Librium detox protocol, admit
[2020-06-19] MEDS ORDERED: PRENATAL VITAMINS W/ FOLIC ACID TABLET (FP) PO SCH (10:00)
[2020-06-19] MEDS: NICOTINE 14 MG/24 HOURS TOPICAL PATCH TD SCH (10:21)
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
[2020-06-19] MEDS ORDERED: hydrOXYzine PAMOATE 25 MG CAPSULE (FP) PO PRN (12:52)
[2020-06-19] MEDS ORDERED: ALBUTEROL SO4 HFA INHALER IH PRN (12:52)
--- NOTE | 2020-06-19 12:54 | PN ---
S CIWA - CIWA Score Nausea/Vomitin-No Nausea/No Vomiting Muscle Tremors: 2 Anxiety: 2 Agitation: 3 Paroxysmal Sweats: 2 Orientation: 0-Oriented Tacttile Disturbances: 0-None Auditory Disturbances: 0-None Visual Disturbances: 0-None Headache: 0-None Present CIWA-Ar Total Score: 9 [facility] Progress Note (SOAP) Subjective: sweats shakes interrupted sleep body aches restless Objective: 06/19/20 12:53 Vital Signs Temperature 98.2 F 06/19/20 09:09 Pulse Rate 52 L 06/19/20 09:09 Respiratory Rate 16 06/19/20 09:09 Blood Pressure 125/80 06/19/20 09:09 O2 Sat by Pulse Oximetry (%) 100 06/19/20 09:09 Laboratory Tests 06/18/20 06/18/20 06/18/20 14:00 14:00 14:00 WBC 4.7 RBC 4.09 Hgb 12.0 Hct 36.2 MCV 88.5 MCH 29.4 MCHC 33.2 RDW 14.5 Plt Count 159 MPV 10.0 Sodium 141 Potassium 3.6 Chloride 109 H Carbon Dioxide 22 Anion Gap 9 BUN 15.2 Creatinine 0.7 Est GFR (CKD-EPI)AfAm 128.43 Est GFR (CKD-EPI)NonAf 110.81 Random Glucose 105 Calcium 8.9 Total Bilirubin 0.3 AST 27 ALT 30 Alkaline Phosphatase 98 Total Protein 6.7 Albumin 3.8 Syphilis Serology Non-reactive HIV Ag/Ab Combo Qual 06/19/20 08:00 WBC RBC Hgb Hct MCV MCH MCHC RDW Plt Count MPV Sodium Potassium Chloride Carbon Dioxide Anion Gap BUN Creatinine Est GFR (CKD-EPI)AfAm Est GFR (CKD-EPI)NonAf Random Glucose Calcium Total Bilirubin AST ALT Alkaline Phosphatase Total Protein Albumin Syphilis Serology HIV Ag/Ab Combo Qual Negative labs noted aaox3 ambulating no acute distress Assessment: 06/19/20 12:54 withdrawals Plan: continue detox
[2020-06-19] MEDS ORDERED: SUVOREXANT 10 MG TABLET PO PRN (22:00)
[2020-06-19] MEDS: THIAMINE HCL 100 MG TABLET (FP) PO SCH (22:43)
[2020-06-20] MEDS ORDERED: chlordiazePOXIDE HCL 25 MG CAPSULE PO SCH (05:00)
[2020-06-20 09:22] VITALS: BP 125/70; PULSE 54; TEMP 97.8
--- NOTE | 2020-06-20 16:47 | DS ---
[facility] Detox Discharge Summary Admission Date: 06/18/20 Discharge Date: 06/20/20 - History Present History: Alcohol Dependence, Cannabis Dependence Additional Comments: Despite efforts by [facility] and by Nursing and Counseling Staff to address Patient's medical needs / concerns, Patient does not wish to remain to complete detox regimen. Risks of leaving Detox Unit against medical advice and prior to completion of Detox Regimen explained to Patient. Patient advised to go immediately to nearest ER should any intolerable withdrawal / detox symptoms develop at any time. Patient verbalized understanding of all information / recommendations presented to him prior to departure from detox unit. Patient left detox unit in stable medical condition. Pertinent Past History: PTSD, Nicotine Dependence, Asthma, History of Deformity of Left Thumb. - Physical Exam Results Vital Signs: Vital Signs Temperature 97.8 F 06/20/20 08:08 Pulse Rate 54 L 06/20/20 08:08 Respiratory Rate 16 06/20/20 08:08 Blood Pressure 125/70 06/20/20 08:08 O2 Sat by Pulse Oximetry (%) 100 06/20/20 05:53 Pertinent Admission Physical Exam Findings: WITHDRAWAL SYMPTOMS. Laboratory Tests 06/18/20 06/18/20 06/18/20 14:00 14:00 14:00 WBC 4.7 RBC 4.09 Hgb 12.0 Hct 36.2 MCV 88.5 MCH 29.4 MCHC 33.2 RDW 14.5 Plt Count 159 MPV 10.0 Sodium 141 Potassium 3.6 Chloride 109 H Carbon Dioxide 22 Anion Gap 9 BUN 15.2 Creatinine 0.7 Est GFR (CKD-EPI)AfAm 128.43 Est GFR (CKD-EPI)NonAf 110.81 Random Glucose 105 Calcium 8.9 Total Bilirubin 0.3 AST 27 ALT 30 Alkaline Phosphatase 98 Total Protein 6.7 Albumin 3.8 Syphilis Serology Non-reactive COVID-19 ([facility]) HIV Ag/Ab Combo Qual 06/18/20 06/19/20 15:00 08:00 WBC RBC Hgb Hct MCV MCH MCHC RDW Plt Count MPV Sodium Potassium Chloride Carbon Dioxide Anion Gap BUN Creatinine Est GFR (CKD-EPI)AfAm Est GFR (CKD-EPI)NonAf Random Glucose Calcium Total Bilirubin AST ALT Alkaline Phosphatase Total Protein Albumin Syphilis Serology COVID-19 ([facility]) Not detected HIV Ag/Ab Combo Qual Negative Lab Results noted. - Medication Discharge Medications: Ambulatory Orders Albuterol Sulfate [Albuterol Sulfate Hfa] 2 inhaler PO Q4H PRN 12/06/19 - Diagnosis (1) Alcohol dependence with uncomplicated withdrawal Status: Acute (2) Alcohol-induced mood disorder Status: Acute (3) Alcohol-induced sleep disorder Status: Acute (4) Cannabis dependence, uncomplicated Status: Acute (5) Substance-induced sleep disorder Status: Acute (6) Asthma Status: Chronic Qualifiers: Asthma severity: mild Asthma persistence: intermittent Asthma complication type: uncomplicated Qualified Code(s): J45.20 - Mild intermittent asthma, uncomplicated (7) Deformity of finger Status: Chronic Qualifiers: Laterality: right Qualified Code(s): M20.001 - Unspecified deformity of right finger(s) (8) Nicotine dependence Status: Chronic Qualifiers: Nicotine product type: cigarettes Substance use status: uncomplicated Qualified Code(s): F17.210 - Nicotine dependence, cigarettes, uncomplicated (9) PTSD (post-traumatic stress disorder) Status: Chronic - AMA Did Patient Leave Against Medical Advice: Yes (Patient did not wish to remain to complete Detox Regimen.)
[2020-06-21] MEDS ORDERED: chlordiazePOXIDE HCL 10 MG CAPSULE PO PRN
[2020-06-21] MEDS ORDERED: chlordiazePOXIDE HCL 10 MG CAPSULE PO SCH (05:00)
[2020-06-22] MEDS ORDERED: chlordiazePOXIDE HCL 10 MG CAPSULE PO SCH (05:00)
[2020-06-23] MEDS ORDERED: chlordiazePOXIDE HCL 10 MG CAPSULE PO ONE (05:00)
== END 2020-06-20 09:42 | disposition left against medical advice (07) | DRG 770 ==
LOC: YASAS 12:47 → Y6N 14:45
PROVIDERS: ADMIT Allergy & Immunology; ATTEND Allergy & Immunology
PROC: HZ2ZZZZ Detoxification Services for Substance Abuse Treatment (ICD-10-PCS; principal; 2020-06-18)
DX: F10.230 Alcohol dependence with withdrawal, uncomplicated (principal); F12.20 Cannabis dependence, uncomplicated; F17.210 Nicotine dependence, cigarettes, uncomplicated; F19.282 Other psychoactive substance dependence with psychoactive substance-induced sleep disorder; F10.24 Alcohol dependence with alcohol-induced mood disorder; F10.282 Alcohol dependence with alcohol-induced sleep disorder; F43.10 Post-traumatic stress disorder, unspecified; J45.20 Mild intermittent asthma, uncomplicated; M20.001 Unspecified deformity of right finger(s)
CPT/HCPCS: 36415; 80053; 85027; 86780; 87389; U0003

== ENCOUNTER 2020-11-26 10:43 | Inpatient (IN) | payer OTHER ==
[2020-11-26 11:36] VITALS: BMI 24.7
[2020-11-26] MEDS ORDERED: IBUPROFEN 400 MG TABLET (FP) PO PRN (12:03)
[2020-11-26] MEDS ORDERED: ACETAMINOPHEN 325 MG TABLET (FP) PO PRN ×2 (12:03)
[2020-11-26] MEDS ORDERED: ONDANSETRON *ODT* 4 MG TABLET SL PRN (12:03)
[2020-11-26] MEDS ORDERED: MENTHOL/PHENOL 1 EACH UD MM PRN (12:03)
[2020-11-26] MEDS ORDERED: BISMUTH SUBSALICYLATE 524 MG/30 ML UD PO PRN (12:03)
[2020-11-26] MEDS ORDERED: MAG HYDROX/AL HYDROX/SIMETH 30 ML UNIT-DOSE CUP PO PRN (12:03)
[2020-11-26] MEDS ORDERED: MAGNESIUM CITRATE 300 ML BOTTLE PO PRN (12:03)
[2020-11-26] MEDS ORDERED: NICOTINE POLACRILEX 2 MG GUM BUC PRN (12:03)
[2020-11-26] MEDS ORDERED: METHOCARBAMOL 500 MG TABLET PO PRN (12:03)
[2020-11-26] MEDS ORDERED: MAGNESIUM HYDROX 2400MG/30ML ORAL SUSPENSION 30 ML CUP PO PRN (12:03)
[2020-11-26] MEDS ORDERED: chlordiazePOXIDE HCL 25 MG CAPSULE PO PRN (12:03)
[2020-11-26] MEDS ORDERED: ALBUTEROL SO4 HFA INHALER IH PRN (12:06)
[2020-11-26] MEDS: hydrOXYzine PAMOATE 25 MG CAPSULE (FP) PO SCH ×3 (13:07→22:37)
[2020-11-26] MEDS: NICOTINE 14 MG/24 HOURS TOPICAL PATCH TD SCH (13:07)
[2020-11-26 13:16] LABS: HEMATOCRIT 41.2 % (35.4-49); HEMOGLOBIN 13.9 GM/dL (11.7-16.9); MCH 29.5 pg (25.7-33.7); MCHC 33.6 g/dl (32.0-35.9); MEAN CELL VOLUME 87.6 fl (80-96); MEAN PLT VOLUME 8.6 fl (7.5-11.1); PLATELET COUNT 279 K/MM3 (134-434); RBC 4.71 M/mm3 (4.00-5.60); RDW 15.7 % (11.9-15.9); WHITE BLOOD COUNT 4.4 K/mm3 (4.0-10.0)
[2020-11-26 13:20] LABS: POTASSIUM 3.3 mmol/L (3.5-5.1)
[2020-11-26 13:26] LABS: ALBUMIN 4.2 g/dl (3.4-5.0)
[2020-11-26 13:27] LABS: BLOOD UREA NITROGEN 13.8 mg/dL (7-18)
[2020-11-26 13:30] LABS: CREATININE 0.9 mg/dL (0.55-1.3)
[2020-11-26 13:31] LABS: CALCIUM 8.7 mg/dL (8.5-10.1); TOT PROT 7.3 g/dl (6.4-8.2)
[2020-11-26 13:32] LABS: BILIRUBIN,TOTAL 0.4 mg/dL (0.2-1)
[2020-11-26] MEDS: chlordiazePOXIDE HCL 25 MG CAPSULE PO SCH ×2 (18:11→22:37)
[2020-11-26] MEDS ORDERED: MELATONIN 5 MG TABLETS PO SCH (22:00)
[2020-11-26] MEDS ORDERED: THIAMINE HCL 100 MG TABLET (FP) PO SCH (22:00)
[2020-11-26] MEDS ORDERED: SUVOREXANT 10 MG TABLET PO PRN (22:00)
[2020-11-27] MEDS: hydrOXYzine PAMOATE 25 MG CAPSULE (FP) PO SCH ×2 (05:34→10:39)
[2020-11-27] MEDS: chlordiazePOXIDE HCL 25 MG CAPSULE PO SCH ×2 (05:34→10:39)
[2020-11-27] MEDS ORDERED: PRENATAL VITAMINS W/ FOLIC ACID TABLET (FP) PO SCH (10:00)
[2020-11-27] MEDS: NICOTINE 14 MG/24 HOURS TOPICAL PATCH TD SCH (10:39)
[2020-11-27 13:06] VITALS: BP 156/96; PULSE 98; TEMP 97.3
[2020-11-27] MEDS ORDERED: POTASSIUM CHLORIDE TABS 20 MEQ TABLET.ER (FP) PO SCH (13:45)
[2020-11-28] MEDS ORDERED: chlordiazePOXIDE HCL 25 MG CAPSULE PO SCH (05:00)
[2020-11-29] MEDS ORDERED: chlordiazePOXIDE HCL 10 MG CAPSULE PO PRN
[2020-11-29] MEDS ORDERED: chlordiazePOXIDE HCL 10 MG CAPSULE PO SCH (05:00)
[2020-11-30] MEDS ORDERED: chlordiazePOXIDE HCL 10 MG CAPSULE PO SCH (05:00)
[2020-12-01] MEDS ORDERED: chlordiazePOXIDE HCL 10 MG CAPSULE PO ONE (05:00)
== END 2020-11-27 14:53 | disposition left against medical advice (07) | DRG 770 ==
LOC: YASAS 10:43 → Y3N 12:11
PROVIDERS: ADMIT Allergy & Immunology; ATTEND Allergy & Immunology
PROC: HZ2ZZZZ Detoxification Services for Substance Abuse Treatment (ICD-10-PCS; principal; 2020-11-26)
DX: F10.230 Alcohol dependence with withdrawal, uncomplicated (principal); F12.10 Cannabis abuse, uncomplicated; F17.210 Nicotine dependence, cigarettes, uncomplicated; F10.282 Alcohol dependence with alcohol-induced sleep disorder; F43.10 Post-traumatic stress disorder, unspecified; E87.6 Hypokalemia; J45.20 Mild intermittent asthma, uncomplicated; M20.001 Unspecified deformity of right finger(s)
CPT/HCPCS: 36415; 80053; 85027; 86780; C9803; U0003